=== PATIENT | male | born 1970 | race Caucasian/White ===

== ENCOUNTER 2020-07-26 21:21 | Inpatient (IN) | payer BC, OTHER ==
[~2020-07-26] VITALS: Ht 175 cm; Wt 90.6 kg
[2020-07-26] MEDS ORDERED: NS IV 1000 ML 1,000 ML ONE (21:43)
[2020-07-26] MEDS ORDERED: LACTATED RINGERS 1,000 ML IV ONE (21:43)
[2020-07-26] MEDS ORDERED: ACETAMINOPHEN 500 MG TAB (TYLENOL) PO PRN (21:45)
[2020-07-26 21:57] LABS: BASOPHILS # (AUTO) 0.2 10^3/uL (0.0-0.1); BASOPHILS % (AUTO) 1 % (0-10); EOSINOPHILS % (AUTO) 0 % (0-10); HEMATOCRIT 39 % (40-54); HEMOGLOBIN 11.6 g/dL (13.3-17.7); LYMPHOCYTES # (AUTO) 0.5 10^3/uL (1.0-4.0); LYMPHOCYTES % (AUTO) 2 % (12-44); MEAN CORPUSCULAR HEMOGLOBIN 28 pg (25-34); MEAN CORPUSCULAR HGB CONC 30 g/dL (32-36); MEAN CORPUSCULAR VOLUME 93 fL (80-99); MONOCYTES # (AUTO) 1.2 10^3/uL (0.0-1.0); MONOCYTES % (AUTO) 4 % (0-12); NEUTROPHILS # (AUTO) 26.2 10^3/uL (1.8-7.8); NEUTROPHILS % (AUTO) 90 % (42-75); PLATELET COUNT 551 10^3/uL (130-400); WHITE BLOOD COUNT 29.1 10^3/uL (4.3-11.0)
[2020-07-26 22:11] LABS: ALBUMIN 3.1 GM/DL (3.2-4.5); POTASSIUM 5.5 MMOL/L (3.6-5.0)
[2020-07-26 22:12] LABS: CALCIUM 9.3 MG/DL (8.5-10.1)
[2020-07-26] MEDS ORDERED: LORazepam INJ 2 MG/ML (ATIVAN) VIAL ONE (22:12)
[2020-07-26 22:14] LABS: TOTAL PROTEIN 7.3 GM/DL (6.4-8.2)
[2020-07-26 22:15] LABS: BILIRUBIN,TOTAL 0.5 MG/DL (0.1-1.0)
[2020-07-26 22:17] LABS: CREATININE SERUM 2.39 MG/DL (0.60-1.30)
[2020-07-26 22:19] LABS: FIBRIN DEGRADATION PRODUCTS 5.16 UG/ML (0.00-0.49); INR 1.3 (0.8-1.4); PROTHROMBIN TIME PATIENT 16.1 SEC (12.2-14.7)
[2020-07-26] MEDS ORDERED: NS IV 1000 ML 1,000 ML IV SCH (22:29)
[2020-07-26] MEDS ORDERED: ZIPRASIDONE 20 MG INJ (GEODON) VIAL IM ONE (22:29)
[2020-07-26] MEDS ORDERED: NS IV 500 ML 500 ML IV ONE (22:29)
[2020-07-26] MEDS ORDERED: LORazepam INJ 2 MG/ML (ATIVAN) VIAL IVP ONE (22:30)
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
[2020-07-26] MEDS ORDERED: WATER (STERILE) FOR INJECTION 10 ML ONE (22:38)
[2020-07-26 22:42] LABS: ABG BASE EXCESS -4.5 MMOL/L (-2.5-2.5); ABG OXYGEN SATURATION 92 % (94-100); ABG PCO2 36 MMHG (35-45); ABG PH 7.37 (7.37-7.43); ABG PO2 88 MMHG (79-93); ABG TCO2 20.5 MMOL/L (21.0-31.0)
[2020-07-26 22:43] LABS: ALLENS TEST YES-POS; INSPIRED O2 21%; PATIENT TEMP 39.1; VENTILATOR YES
[2020-07-26] MEDS ORDERED: inSUlin (REGULAR) HUMAN 1 UNIT/0.01 ML (CHARGE PER UNIT) IV ONE (22:45)
[2020-07-26] MEDS ORDERED: CEFEPIME INJECTION 1,000 MG in WATER (STERILE) FOR INJECTION 10 ML IV ONE (22:45)
[2020-07-26] MEDS ORDERED: VANCOMYCIN INJECTION 1,000 MG in NS (IVPB) 250 ML IV ONE (22:45)
[2020-07-26 22:53] LABS: BAND NEUTROPHILS 19 %; EOSINOPHILS % (MANUAL) 1 %; LYMPHOCYTES % (MANUAL) 2 %; METAMYELOCYTES % 1 %; MONOCYTES % (MANUAL) 3 %; NEUTROPHILS % (MANUAL) 74 %
[2020-07-26] MEDS: ZIPRASIDONE INJECTION 20 MG in WATER (STERILE) FOR INJECTION 1.2 ML IM PRN (22:53)
[2020-07-26 22:54] LABS: RBC MORPH NORMAL
[2020-07-26 23:29] VITALS: BP 151/67
[2020-07-26 23:30] LABS: BILIRUBIN,URINE NEGATIVE (NEGATIVE); CLARITY,URINE CLEAR; COLOR,URINE YELLOW; GLUCOSE, URINE (UA) 3+ (NEGATIVE); KETONES,URINE TRACE (NEGATIVE); LEUKOCYTE ESTERASE ,URINE NEGATIVE (NEGATIVE); NITRITE,URINE NEGATIVE (NEGATIVE); PROTEIN,URINE TRACE (NEGATIVE)
--- NOTE | 2020-07-26 23:33 | NUR ---
All fluids infused; both sets of blood cultures sent to lab prior to antibiotics; first antibiotic infused and second is infusing. Mane placed. Pt resting after Ativan given. Pt has 2 IV's placed.
[2020-07-26 23:38] LABS: BACTERIA,URINE TRACE /HPF; RBC,URINE 0-2 /HPF
[2020-07-26] MEDS ORDERED: VANCOMYCIN INJECTION 750 MG in NS (IVPB) 250 ML IV ONE (23:45)
[2020-07-26 23:46] LABS: AMPHETAMINE SCREEN, URINE POSITIVE (NEGATIVE); BARBITURATE SCREEN URINE NEGATIVE (NEGATIVE); BENZODIAZEPINES SCREEN URINE NEGATIVE (NEGATIVE); CANNABINOID SCREEN, URINE NEGATIVE (NEGATIVE); COCAINE SCREEN URINE NEGATIVE (NEGATIVE); METHADONE STAT NEGATIVE (NEGATIVE); METHAMPHETAMINE SCREEN URINE S POSITIVE (NEGATIVE); OPIATE SCREEN URINE NEGATIVE (NEGATIVE); OXYCODONE STAT NEGATIVE (NEGATIVE); PROPOXYPHENE STAT NEGATIVE (NEGATIVE); TRICYCLIC ANTIDEPRESSANTS SCRE NEGATIVE (NEGATIVE)
--- NOTE | 2020-07-26 23:48 | NUR ---
Repeat lactic acid drawn and sent.
--- NOTE | 2020-07-26 23:54 | NUR ---
Father of patient called and updated on status of patient; phone number is [phone].
[2020-07-26 23:56] VITALS: BP 145/77
[2020-07-27] VITALS (24 sets, daily range): BP systolic 125–148; BP diastolic 68–99
--- NOTE | 2020-07-27 01:30 | NUR ---
Report called to ICU; bed not ready yet but they will notify this nurse when it is available. Pt is resting; continues to be tachypneic but RR is down to the 40's. Will continue to monitor.
[2020-07-27 02:10] LABS: ALBUMIN 2.6 GM/DL (3.2-4.5)
[2020-07-27 02:11] LABS: POTASSIUM 5.3 MMOL/L (3.6-5.0)
[2020-07-27 02:12] LABS: CALCIUM 8.4 MG/DL (8.5-10.1)
[2020-07-27 02:13] LABS: TOTAL PROTEIN 6.4 GM/DL (6.4-8.2)
[2020-07-27 02:15] LABS: BILIRUBIN,TOTAL 0.3 MG/DL (0.1-1.0)
[2020-07-27 02:17] LABS: CREATININE SERUM 2.15 MG/DL (0.60-1.30)
--- NOTE | 2020-07-27 02:26 | NUR ---
Lab called with critical lab results: Ca=8.4 Sb=651 Lactic=3.12 Dr. Smith notified.
[2020-07-27] MEDS ORDERED: LORazepam INJ 2 MG/ML (ATIVAN) VIAL IVP PRN (04:30)
[2020-07-27] MEDS ORDERED: 1/2 NS IV SOLUTION 1,000 ML IV ONE (04:32)
[2020-07-27] MEDS ORDERED: POTASSIUM CL 10MEQ/50ML IVPB 50 ML IV ONE ×2 (04:32→04:37)
[2020-07-27] MEDS ORDERED: 1/2 NS IV SOLUTION 1,000 ML IV SCH (04:39)
[2020-07-27] MEDS ORDERED: NS IV 1000 ML 1,000 ML IV SCH (04:39)
[2020-07-27] MEDS ORDERED: POTASSIUM CL 10MEQ/50ML IVPB 50 ML IV SCH (04:45)
[2020-07-27] MEDS: 1/2 NS IV SOLUTION 1,000 ML IV SCH ×6 (05:08→23:10)
[2020-07-27] MEDS: POTASSIUM CL 10MEQ/50ML IVPB 50 ML IV SCH ×4 (05:08→21:58)
[2020-07-27 05:24] LABS: BASOPHILS % (AUTO) 0 % (0-10); EOSINOPHILS % (AUTO) 0 % (0-10); HEMATOCRIT 35 % (40-54); HEMOGLOBIN 11.4 g/dL (13.3-17.7); LYMPHOCYTES # (AUTO) 0.8 10^3/uL (1.0-4.0); LYMPHOCYTES % (AUTO) 4 % (12-44); MEAN CORPUSCULAR HEMOGLOBIN 27 pg (25-34); MEAN CORPUSCULAR HGB CONC 33 g/dL (32-36); MEAN CORPUSCULAR VOLUME 84 fL (80-99); MEAN PLATELET VOLUME 10.8 fL (9.0-12.2); MONOCYTES # (AUTO) 0.6 10^3/uL (0.0-1.0); MONOCYTES % (AUTO) 3 % (0-12); NEUTROPHILS # (AUTO) 18.7 10^3/uL (1.8-7.8); NEUTROPHILS % (AUTO) 92 % (42-75); PLATELET COUNT 413 10^3/uL (130-400); WHITE BLOOD COUNT 20.2 10^3/uL (4.3-11.0)
[2020-07-27 05:33] LABS: POTASSIUM 6.2 MMOL/L (3.6-5.0)
[2020-07-27 05:35] LABS: CALCIUM 8.9 MG/DL (8.5-10.1)
[2020-07-27 05:39] LABS: CREATININE SERUM 2.16 MG/DL (0.60-1.30); PHOSPHORUS 2.4 MG/DL (2.3-4.7)
[2020-07-27] MEDS ORDERED: SODIUM BICARB 8.4% 50 MEQ/50 ML VIAL IV ONE (06:00)
--- NOTE | 2020-07-27 06:00 | NUR ---
SPOKE TO [facility] ABOUT OUR DKA PROTOCOL. ORDERS RECEIVED TO CONTINUE DRIP AT 5UNITS/HR.
[2020-07-27 06:34] LABS: ABG BASE EXCESS 2.4 MMOL/L (-2.5-2.5); ABG OXYGEN SATURATION 96 % (94-100); ABG PCO2 41 MMHG (35-45); ABG PH 7.43 (7.37-7.43); ABG PO2 93 MMHG (79-93); ABG TCO2 27.5 MMOL/L (21.0-31.0)
[2020-07-27 06:35] LABS: ALLENS TEST ART LINE; INSPIRED O2 2L; PATIENT TEMP 37.8; VENTILATOR NO
--- NOTE | 2020-07-27 07:27 | Diagnostic Imaging Report ---
Indication: Altered mental status with dyspnea. Comparison: None. Discussion: Single portable upright view of the chest was obtained. Normal heart size. No focal consolidation, pleural fluid, or pneumothorax. No osseous abnormality. Impression: 1. No acute cardiopulmonary process. Dictated by: Dictated on workstation # [id number]
[2020-07-27 07:36] LABS: POTASSIUM 5.4 MMOL/L (3.6-5.0)
[2020-07-27 07:37] LABS: CALCIUM 8.8 MG/DL (8.5-10.1)
[2020-07-27 07:42] LABS: CREATININE SERUM 2.03 MG/DL (0.60-1.30)
[2020-07-27] MEDS: CEFEPIME 1,000 MG/SWFI 10 ML IV PUSH IV SCH ×6 (07:58→21:59)
--- NOTE | 2020-07-27 08:00 | NUR ---
Text Dr. Roman et notified him of pt status including HR 140s, RR40-60, only groans to painful stimuli, recent lactic acid et glucose level
[2020-07-27] MEDS: ACETAMINOPHEN 650 MG SUPP (TYLENOL) PR PRN ×3 (08:03→23:10)
--- NOTE | 2020-07-27 09:50 | NUR ---
Ice packs applied to groin et axilla bilat Dr. Roman at bedside with this RN, notified of continued status et temp of 102.8 despite tylenol
[2020-07-27 10:37] LABS: POTASSIUM 5.3 MMOL/L (3.6-5.0)
[2020-07-27 10:42] LABS: CREATININE SERUM 1.96 MG/DL (0.60-1.30)
[2020-07-27 12:37] LABS: POTASSIUM 5.7 MMOL/L (3.6-5.0)
[2020-07-27 12:38] LABS: CALCIUM 8.8 MG/DL (8.5-10.1)
[2020-07-27 12:43] LABS: CREATININE SERUM 1.9 MG/DL (0.60-1.30)
--- NOTE | 2020-07-27 13:07 | History & Physical-Hospitalist ---
History of Present Illness HPI/Chief Complaint Dino Moreau is a 50-year-old male with PMH insulin-dependent diabetes mellitus, methamphetamine abuse, who presented with altered mental status. He had reportedly been out of his insulin according to his parents. He had been too weak to walk and was incontinent of urine.in the emergency room, he was found to be in diabetic ketoacidosis. At the time of my exam, he is lethargic, uncooperative, and unable to provide any history. Source: RN/MD Exam Limitations: clinical condition Date Seen 07/27/20 Time Seen by a Provider: 09:40 Attending Physician Naya Khan MD PCP No,Local Physician Referring Physician Date of Admission Jul 27, 2020 at 00:10 Home Medications & Allergies Home Medications Reviewed patient Home Medication Reconciliation performed by pharmacy medication reconciliations tool maintenance technician and/or nursing. Patients Allergies have been reviewed. Allergies Allergies Coded Allergies No Known Drug Allergies (Caiimbrbow00/3/20) Past Nckgtxe-Dmojbt-Voitkb Hx Past Med/Social Hx: Reviewed Nursing Past Med/Soc Hx Patient Social History Alcohol Use: Denies Use Recreational Drug Use: Yes Drug of Choice: Meth Smoking Status: Never a Smoker Recent Foreign Travel: No Contact w/other who traveled: No Recent Hopitalizations: Yes Recent Infectious Disease Expo: No Seasonal Allergies Seasonal Allergies: No Past Medical History Endocrine: Diabetes, Insulin dep Review of Systems Constitutional: see HPI, fever, malaise, weakness Genitourinary: incontinence Musculoskeletal: muscle weakness Physical Exam Physical Exam Vital Signs Vital Signs - First Documented 07/26/20 07/27/20 21:55 00:12 Temp 39.1 Pulse 146 Resp 42 B/P (MAP) 113/86 (95) Pulse Ox 98 O2 Delivery Room Air O2 Flow Rate 3.00 Capillary Refill : Less Than 3 Seconds Height, Weight, BMI Height: '" Weight: lbs. oz. kg; 28.50 BMI Method: General Appearance: Moderate Distress (tachycardic and tachypneic), Other (diaphoretic) HEENT: Pharynx Normal, Other (pinpoint pupils bilaterally) Neck: Normal Inspection, Supple Respiratory: Lungs Clear, Respiratory Distress (tachypneic) Cardiovascular: Normal Peripheral Pulses, Tachycardia (regular rhythm) Gastrointestinal: Normal Bowel Sounds, Soft, Tenderness Extremity: Normal Inspection, No Pedal Edema Neurologic/Psychiatric: Other (lethargic, uncooperative,) Skin: Normal Color, Damp, Diaphoresis Results Results/Procedures Labs Laboratory Tests 07/26/20 21:41 07/27/20 01:45 07/27/20 05:10 07/27/20 06:20 07/27/20 07:20 07/27/20 08:10 07/27/20 10:00 07/27/20 11:30 Patient resulted labs reviewed. Imaging: Reviewed Imaging Report Assessment/Plan Admission Diagnosis Diabetic ketoacidosis and septic shock due to gram positive cocci bacteremia Admission Status: Inpatient Order (span 2 midnights) Reason for Inpatient Admission: DKA requiring IV insuliln Septic shock requiring IV fluids and antibiotics Assessment and Plan Diabetic ketoacidosis High anion gap metabolic acidosis Hyperkalemia Hyponatremia Blood sugar >1400 on arrival anion gap elevated Sodium 113, corrects to 134 Potassium mildly elevated Started on DKA protocol Insulin GTT IV fluids admitted to ICU Septic shock Gram positive cocci bacteremia Influenza B infection Acute kidney injury Febrile and tachycardic on arrival procalcitonin 72 creatinine 2.39 on arrival, improving this morning, unknown baseline Chest x-ray with no acute abnormalities UA not indicative of UTI Blood cultures positive for gram-positive cocci, likely staph aureus await final culture and sensitivity results Vancomycin and cefepime influenza B+ Tamiflu COVID RODRIGO negative, PCR pending Methamphetamine abuse Possible source of bacteremia recommend cessation Social work consult DVT Prophylaxis: Lovenox Diagnosis/Problems Diagnosis/Problems (1) Diabetic ketoacidosis Status: Acute Qualifiers: Diabetes mellitus type: other specified (including MARIO) Diabetes mellitus complication detail: without coma Qualified Codes: E13.10 - Other specified diabetes mellitus with ketoacidosis without coma (2) Septic shock Status: Acute (3) Gram-positive cocci bacteremia Status: Acute (4) Person under investigation for COVID-19 Status: Acute (5) Lactic acidosis Status: Acute (6) High anion gap metabolic acidosis Status: Acute (7) Hyperkalemia Status: Acute (8) Hyponatremia Status: Acute (9) Elevated procalcitonin Status: Acute (10) Influenza B Status: Acute (11) Acute kidney injury Status: Acute (12) Metabolic encephalopathy Status: Acute Clinical Quality Measures DVT/VTE Risk/Contraindication: Risk Factor Score Per Nursin RFS Level Per Nursing on Admit: 4+=Very High NAYA KHAN MD Jul 27, 2020 13:07
[2020-07-27] MEDS ORDERED: OSELTAMIVIR 75 MG (TAMIFLU) CAPSULE PO ONE (13:30)
[2020-07-27 13:46] LABS: ABG OXYGEN SATURATION 98 % (94-100); ABG PCO2 35 MMHG (35-45); ABG PH 7.49 (7.37-7.43); ABG PO2 93 MMHG (79-93); ABG TCO2 27.1 MMOL/L (21.0-31.0)
[2020-07-27 13:58] LABS: ALLENS TEST POS; INSPIRED O2 2; PATIENT TEMP 37.9; VENTILATOR NO
--- NOTE | 2020-07-27 14:45 | NUR ---
Dr. Roman back at bedside, no changes in assessment. HR remains in upper 140s, RR 40-60s, pt hot et diaphoretic. Pt does open eyes occasionally to painful stimul but doesnot follow any commands et makes moaning type noises sporadically
[2020-07-27] MEDS: VANCOMYCIN INJECTION 1,500 MG in NS IV 500 ML 500 ML IV SCH (15:41)
[2020-07-27 17:14] LABS: POTASSIUM 4.5 MMOL/L (3.6-5.0)
[2020-07-27 17:15] LABS: CALCIUM 8.4 MG/DL (8.5-10.1)
[2020-07-27 17:19] LABS: CREATININE SERUM 1.63 MG/DL (0.60-1.30)
[2020-07-27] MEDS: OSELTAMIVIR 30 MG (TAMIFLU) CAPSULE PO SCH (20:03)
[2020-07-27 20:46] LABS: CALCIUM 8.3 MG/DL (8.5-10.1); CREATININE SERUM 1.63 MG/DL (0.60-1.30); POTASSIUM 4.5 MMOL/L (3.6-5.0)
[2020-07-27] MEDS ORDERED: OSELTAMIVIR 75 MG (TAMIFLU) CAPSULE PO SCH (21:00)
--- NOTE | 2020-07-27 23:51 | NUR ---
Call placed to E ICU at this time. Spoke to the Dr. Reported patient appearance of increased pain and moaning. Discussed lab results, patient assessment and VS.
[2020-07-27] MEDS: D5 1/2 NS 1000 ML IV SOLUTION 1,000 ML IV SCH (23:56)
[2020-07-27] MEDS ORDERED: morphine INJ 4 MG/ML 1 ML (VIAL/SYRINGE) ONE (23:58)
[2020-07-28] VITALS (23 sets, daily range): BP systolic 97–149; BP diastolic 43–88
[2020-07-28] MEDS: POTASSIUM CL 10MEQ/50ML IVPB 50 ML IV SCH ×6 (00:02→14:40)
[2020-07-28] MEDS: morphine INJ 4 MG/ML 1 ML (VIAL/SYRINGE) IVP PRN ×4 (00:04→22:36)
[2020-07-28 00:50] LABS: POTASSIUM 4.1 MMOL/L (3.6-5.0)
[2020-07-28 00:52] LABS: CALCIUM 8.1 MG/DL (8.5-10.1)
[2020-07-28 00:56] LABS: CREATININE SERUM 1.44 MG/DL (0.60-1.30)
[2020-07-28 04:13] LABS: BASOPHILS % (AUTO) 0 % (0-10); EOSINOPHILS # (AUTO) 0.1 10^3/uL (0.0-0.3); EOSINOPHILS % (AUTO) 0 % (0-10); HEMATOCRIT 29 % (40-54); HEMOGLOBIN 9.8 g/dL (13.3-17.7); LYMPHOCYTES # (AUTO) 1.4 10^3/uL (1.0-4.0); LYMPHOCYTES % (AUTO) 7 % (12-44); MEAN CORPUSCULAR HEMOGLOBIN 28 pg (25-34); MEAN CORPUSCULAR HGB CONC 34 g/dL (32-36); MEAN CORPUSCULAR VOLUME 82 fL (80-99); MONOCYTES # (AUTO) 0.5 10^3/uL (0.0-1.0); MONOCYTES % (AUTO) 3 % (0-12); NEUTROPHILS # (AUTO) 16.9 10^3/uL (1.8-7.8); NEUTROPHILS % (AUTO) 87 % (42-75); PLATELET COUNT 312 10^3/uL (130-400); WHITE BLOOD COUNT 19.5 10^3/uL (4.3-11.0)
[2020-07-28 04:22] LABS: POTASSIUM 4.3 MMOL/L (3.6-5.0)
[2020-07-28 04:28] LABS: CREATININE SERUM 1.45 MG/DL (0.60-1.30); PHOSPHORUS 1.4 MG/DL (2.3-4.7)
[2020-07-28 04:31] LABS: MAGNESIUM 1.6 MG/DL (1.6-2.4)
[2020-07-28] MEDS: 1/2 NS IV SOLUTION 1,000 ML IV SCH ×2 (05:12→09:34)
--- NOTE | 2020-07-28 05:46 | Pulmonary Consultation ---
History of Present Illness History of Present Illness Date Seen by Provider: Jul 28, 2020 Time Seen by Provider: 05:59 Date of Admission Allergies and Home Medications Allergies Coded Allergies: No Known Drug Allergies (Unverified , 07/26/20) Past Ajjawcl-Kcefme-Cubhdv Hx Past Med/Social Hx: Reviewed Nursing Past Med/Soc Hx Patient Social History Alcohol Use: Denies Use Recreational Drug Use: Yes Drug of Choice: Meth Smoking Status: Never a Smoker Recent Foreign Travel: No Contact w/Someone Who Travel: No Recent Infectious Disease Expo: No Recent Hopitalizations: Yes Seasonal Allergies Seasonal Allergies: No Past Medical History Endocrine: Yes Diabetes, Insulin dep Sepsis Event Evaluation Height, Weight, BMI Height: '" Weight: lbs. oz. kg; 28.50 BMI Method: Exam Exam Vital Signs Date Time Temp Pulse Resp B/P (MAP) Pulse Ox O2 Delivery O2 Flow Rate FiO2 07/28/20 04:00 37.2 Nasal Cannula 2.00 07/28/20 04:00 134 32 135/72 (93) 98 Nasal Cannula 2.00 07/28/20 03:05 Nasal Cannula 2.00 07/28/20 03:00 137 27 120/58 (78) 94 Nasal Cannula 2.00 07/28/20 02:00 135 129/55 (79) 97 Nasal Cannula 2.00 07/28/20 01:47 37.1 Nasal Cannula 2.00 07/28/20 01:00 138 119/70 (86) 98 Nasal Cannula 2.00 07/28/20 01:00 138 07/28/20 00:00 141 19 133/68 (89) 98 Nasal Cannula 2.00 07/27/20 23:10 38.0 07/27/20 23:10 Nasal Cannula 2.00 07/27/20 23:05 38.0 07/27/20 23:00 142 131/75 (93) 100 Nasal Cannula 2.00 07/27/20 22:04 37.6 Nasal Cannula 2.00 07/27/20 22:00 135 129/71 (90) 99 Nasal Cannula 2.00 07/27/20 21:00 142 125/77 (93) 99 Nasal Cannula 2.00 07/27/20 20:00 144 136/79 (98) 99 Nasal Cannula 2.00 07/27/20 19:50 Nasal Cannula 2.00 07/27/20 19:40 38.0 144 42 99 Nasal Cannula 2.00 07/27/20 19:00 140 148/92 (110) 100 Nasal Cannula 2.00 07/27/20 19:00 140 07/27/20 19:00 38.8 07/27/20 18:00 141 147/87 (107) 98 Nasal Cannula 2.00 07/27/20 17:00 142 146/86 (106) 98 Nasal Cannula 2.00 07/27/20 16:00 142 132/82 (99) 98 Nasal Cannula 2.00 07/27/20 16:00 Nasal Cannula 2.00 07/27/20 15:09 38.3 07/27/20 15:00 140 26 133/94 (107) 99 Nasal Cannula 2.00 07/27/20 14:00 142 127/87 (100) 98 Nasal Cannula 2.00 07/27/20 13:36 37.9 07/27/20 13:00 147 07/27/20 13:00 144 28 129/84 (99) 98 Nasal Cannula 2.00 07/27/20 12:00 Nasal Cannula 2.00 07/27/20 12:00 147 136/83 (100) 98 Nasal Cannula 2.00 07/27/20 11:00 147 40 135/90 (105) 98 Nasal Cannula 2.00 07/27/20 10:00 149 38 139/83 (101) 98 Nasal Cannula 2.00 07/27/20 09:51 39.3 07/27/20 09:00 149 35 135/86 (102) 97 Nasal Cannula 2.00 07/27/20 08:01 38.9 07/27/20 08:00 Nasal Cannula 2.00 07/27/20 08:00 149 35 136/92 (107) 98 Nasal Cannula 2.00 07/27/20 07:00 149 38 139/85 (103) 98 Nasal Cannula 2.00 07/27/20 07:00 148 07/27/20 06:00 144 38 146/88 (107) 98 Nasal Cannula 2.00 I & O 07/28/20 07:00 Intake Total 5865 ml Output Total 2550 ml Balance 3315 ml Height & Weight Height: '" Weight: lbs. oz. kg; 28.50 BMI Method: General Appearance: Moderate Distress (tachycardic and tachypneic), Other (diaphoretic) HEENT: Pharynx Normal, Other (pinpoint pupils bilaterally) Neck: Normal Inspection, Supple Respiratory: Lungs Clear, Respiratory Distress (tachypneic) Cardiovascular: Normal Peripheral Pulses, Tachycardia (regular rhythm) Capillary Refill: Less Than 3 Seconds Peripheral Pulses: 2+ Radial Pulses (R), 2+ Radial Pulses (L) Gastrointestinal: No distended; tenderness (RLQ ) Extremity: Normal Inspection, No Pedal Edema Neurologic/Psychiatric: Other (lethargic, uncooperative,) Skin: Normal Color, Damp, Diaphoresis Results Lab Laboratory Tests 07/26/20 21:41 07/27/20 01:45 07/27/20 05:10 07/27/20 06:20 07/27/20 07:20 07/27/20 08:10 07/27/20 10:00 07/27/20 11:30 07/27/20 16:34 07/27/20 20:17 07/28/20 00:28 07/28/20 03:47 Assessment/Plan Assessment/Plan DKA -DKA protocol -Continue to monitor Methamphetamine use -education Lethargy -Check CT of head -Hold Ativan -Continue PRN morphine and Geodon for now -Precedex PRN -Check ABG Bacteremia -May need REX -Will check echo Abdominal pain - -Check amylase lipase -Check CT of Abd without contrast Influenza B + -COVID is negative -Tamiflu Anemia -Monitor MELISA VERA DO Jul 28, 2020 05:46
[2020-07-28] MEDS ORDERED: ENOXAPARIN 40 MG/0.4 ML (LOVENOX) SYR ONE (06:13)
[2020-07-28] MEDS ORDERED: ENOXAPARIN 40 MG/0.4 ML (LOVENOX) SYR SC SCH (06:15)
[2020-07-28] MEDS: CEFEPIME 1,000 MG/SWFI 10 ML IV PUSH IV SCH ×2 (06:19)
[2020-07-28 06:48] LABS: AMYLASE 66 U/L (25-125)
[2020-07-28 06:57] LABS: LIPASE < 4 U/L (8-78)
[2020-07-28 07:07] LABS: ABG BASE EXCESS 0.1 MMOL/L (-2.5-2.5); ABG OXYGEN SATURATION 95 % (94-100); ABG PCO2 38 MMHG (35-45); ABG PH 7.42 (7.37-7.43); ABG PO2 75 MMHG (79-93); ABG TCO2 25.2 MMOL/L (21.0-31.0)
[2020-07-28 07:13] LABS: ALLENS TEST YES-POS; INSPIRED O2 2 L; VENTILATOR NO
[2020-07-28 07:14] LABS: PATIENT TEMP 37.2
--- NOTE | 2020-07-28 07:39 | Diagnostic Imaging Report ---
INDICATION: Abdominal pain COMPARISON: None available TECHNIQUE: 3 radiographs of abdomen dated 07/28/2020. FINDINGS: The minimally visualized lung bases are clear. Gas and stool is noted throughout the colon, including extending into the pelvis. No dilated loops of small bowel. No differential air-fluid levels. No free air. No suspicious calcifications overlying the renal shadows. Scattered osseous degenerative changes. 9 mm calcifications noted overlying the right aspect of the sacrum. IMPRESSION: No evidence of bowel obstruction or free air. 9 mm calcification overlying the right aspect of the sacrum. This is nonspecific. This could relate to a bone island or other sclerotic osseous lesion. Enteric contents or vascular calcifications additional consideration. Dictated by: Dictated on workstation # [id number]
[2020-07-28] MEDS: MIDAZOLAM 2 MG/2 ML (VERSED) VIAL IVP PRN (07:53)
--- NOTE | 2020-07-28 08:26 | Diagnostic Imaging Report ---
PROCEDURE: CT head without contrast. TECHNIQUE: Multiple contiguous axial images were obtained through the brain without the use of intravenous contrast. Auto Exposure Controls were utilized during the CT exam to meet ALARA standards for radiation dose reduction. INDICATION: Lethargy. No prior studies are available for comparison. The ventricles and sulci are within normal limits. No sulcal effacement or midline shift is identified. No acute intra-axial or extra-axial hemorrhage is detected. Small low-density left thalamus consistent with lacunar infarct, however, age is indeterminate. IMPRESSION: 1. No acute intracranial hemorrhage is identified. 2. Small low-density left thalamus consistent with age-indeterminate lacunar infarct. If there is concern for acuity, MRI could be performed. Dictated by: Dictated on workstation # [id number]
--- NOTE | 2020-07-28 08:35 | Diagnostic Imaging Report ---
PROCEDURE: CT chest, abdomen, and pelvis without contrast. TECHNIQUE: Multiple contiguous axial images were obtained through the chest, abdomen, and pelvis without the use of intravenous contrast. Auto Exposure Controls were utilized during the CT exam to meet ALARA standards for radiation dose reduction. INDICATION: Severe sepsis and abdominal pain. No prior studies are available for comparison. CT CHEST: No axillary lymphadenopathy is detected. Mediastinal and hilar evaluation is limited without intravenous contrast. No pericardial fluid is identified. There appears to be trace bilateral pleural fluid. There are several areas of patchy airspace infiltrate within both lungs, greatest in bilateral lower lobes. In addition, there are several tiny nodular densities, only a few millimeters in size in bilateral upper lobes, indeterminate. CT ABDOMEN AND PELVIS: Liver is unremarkable. There is some mild gallbladder distention but no definite gallstones are seen. No bile duct dilatation. The pancreas and spleen are unremarkable. No adrenal mass is detected. Left kidney is atrophic. The right kidney is unremarkable. Aorta is nonaneurysmal. Bowel loops are normal in caliber. No bowel obstruction is seen. There is moderate stool in the colon suggestive of constipation. There is diverticulosis of the sigmoid but no evidence of acute diverticulitis. The bladder is markedly thick walled and contains a Mane catheter and there is also small amount of gas. Prostate is enlarged. There are fat-containing inguinal hernias bilaterally. The bony structures are nonacute. IMPRESSION: 1. Trace bilateral pleural effusions with patchy bilateral airspace pulmonary infiltrates. In addition, there are several subcentimeter pulmonary nodules in the upper lobes bilaterally, indeterminate. While this could be infectious/inflammatory, metastatic disease cannot be entirely excluded and continued close followup to confirm clearing would be recommended. 2. Moderate gallbladder distention. Gallbladder ultrasound may be useful for further evaluation. 3. Significant bladder wall thickening, perhaps on the basis of cystitis. 4. Uncomplicated diverticulosis. 5. Prostatomegaly. Dictated by: Dictated on workstation # [id number]
[2020-07-28 08:50] LABS: CALCIUM 7.9 MG/DL (8.5-10.1); CREATININE SERUM 1.46 MG/DL (0.60-1.30); POTASSIUM 4.3 MMOL/L (3.6-5.0)
--- NOTE | 2020-07-28 09:05 | Progress Note - Hospitalist ---
Subjective HPI/CC On Admission Date Seen by Provider: Jul 28, 2020 Time Seen by Provider: 09:00 Dino Moreau is a 50-year-old male with H insulin-dependent diabetes mellitus, methamphetamine abuse, who presented with altered mental status. He had reportedly been out of his insulin according to his parents. He had been too weak to walk and was incontinent of urine.in the emergency room, he was found to be in diabetic ketoacidosis. At the time of my exam, he is lethargic, uncooperative, and unable to provide any history. Subjective/Events-last exam Pt is laying in bed, awake and grimacing when I walked in the room. Does not speak to me. Did calm down when I held his hand. Focused Exam Lactate Level 07/27/20 12:52: Lactic Acid Level 2.68*H 07/28/20 00:28: Lactic Acid Level 2.17*H 07/28/20 03:47: Lactic Acid Level 1.65 Time of Focused Exam: 00:14 Objective Exam Vital Signs Vital Signs Date Time Temp Pulse Resp B/P (MAP) Pulse Ox O2 Delivery O2 Flow Rate FiO2 07/28/20 14:47 38.3 07/28/20 12:44 133 07/28/20 10:00 119/55 (76) 98 Nasal Cannula 2.00 07/28/20 09:00 32 Capillary Refill : Less Than 3 Seconds General Appearance: Mild Distress Respiratory: Lungs Clear, No Respiratory Distress Cardiovascular: No Murmur, Tachycardia Gastrointestinal: Normal Bowel Sounds, Soft Extremity: No Calf Tenderness, No Pedal Edema Neurologic/Psychiatric: Alert Results/Procedures Lab Laboratory Tests 07/27/20 16:34 07/27/20 20:17 07/28/20 00:28 07/28/20 03:47 07/28/20 08:30 07/28/20 13:00 Patient resulted labs reviewed. Imaging: Reviewed Imaging Report Assessment/Plan Assessment and Plan Assess & Plan/Chief Complaint Diabetic ketoacidosis- resolved High anion gap metabolic acidosis Hyperkalemia Hyponatremia - BS improving Na 134 today Potassium mildly elevated Insulin GTT IV fluids per protocol Septic shock MRSA bacteremia Influenza B infection Acute kidney injury Encephalopathy procalcitonin 72 creatinine now 1.33 Chest x-ray with no acute abnormalities UA not indicative of UTI await final culture and sensitivity results Vancomycin and cefepime influenza B+ Tamiflu COVID RODRIGO negative, PCR negative - Cardiology consulted for possible REX Methamphetamine abuse Possible source of bacteremia, no obvious track baeza noted recommend cessation Social work consult DVT Prophylaxis: Lovenox Diagnosis/Problems Diagnosis/Problems (1) Encephalopathy (2) Elevated procalcitonin Status: Acute (3) Gram-positive cocci bacteremia Status: Acute (4) High anion gap metabolic acidosis Status: Acute (5) Acute kidney injury Status: Acute (6) Metabolic encephalopathy Status: Acute (7) Influenza B Status: Acute (8) Hyponatremia Status: Acute (9) Lactic acidosis Status: Acute (10) Hyperkalemia Status: Acute (11) Septic shock Status: Acute Clinical Quality Measures DVT/VTE Risk/Contraindication: Risk Factor Score Per Nursin RFS Level Per Nursing on Admit: 4+=Very High CHAD ESPINO MD Jul 28, 2020 09:05
--- NOTE | 2020-07-28 09:05 | Consultation-Cardiology ---
HPI-Cardiology Cardiology Consultation: Date of Consultation 07/28/20 Time Seen by a Provider: 08:50 Date of Admission 07-26-2020 Attending Physician Ginette Roman MD Admitting Physician No,Local Physician Consulting Physician Caitie More MD HPI: Chief Complaint: Tachycardia Mr. Calixto is a 50 year old male admitted to ICU 8 from the ED. He is currently confused and moving around in the bed. Information has been obtained by review of chart and discussion with nursing. He has a h/o methamphetamine abuse and suspected ETOH abuse. He has been staying with his parents. His parents were out of town for the weekend. He called his family was confused. They came home and summoned EMS. He has a h/o DM and was found to be in DKA. He tested positive for methamphetamines and influenza B. He has had a fever. He tested negative for COVID. Review of Systems-Cardiology Review of Systems Other comments Unable to obtain d/t pt confusion ULU-Wrbage-Eeyqfb Hx Patient Social History Alcohol Use: Denies Use Recreational Drug Use: Yes Drug of Choice: Meth Smoking Status: Never a Smoker Recent Foreign Travel: No Recent Infectious Disease Expo: No Hospitalization with Isolation: Denies Past Medical History PMH As described under Assessment. Family Medical History Family Medical History: Unable to obtain Allergies and Home Medications Allergies Coded Allergies: No Known Drug Allergies (Unverified , 07/26/20) Physical Exam-Cardiology Physical Exam Vital Signs/I&O 07/28/20 07/28/20 07/28/20 07/28/20 20:00 20:00 20:22 21:00 Pulse 101 97 103 Resp 25 18 22 B/P (MAP) 110/63 (79) 110/63 100/88 (92) Pulse Ox 94 100 100 100 O2 Delivery Room Air Room Air Room Air Room Air 07/28/20 07/28/20 07/28/20 07/28/20 22:00 23:00 23:00 23:00 Temp 36.8 Pulse 105 109 Resp 21 B/P (MAP) 99/71 (80) Pulse Ox 95 100 100 O2 Delivery Room Air Room Air Room Air Room Air 07/29/20 07/29/20 07/29/20 07/29/20 00:14 00:53 01:00 01:08 Pulse 98 93 100 Resp 30 26 B/P (MAP) 98/69 (79) 94/75 (81) Pulse Ox 96 94 O2 Delivery Room Air Nasal Cannula Nasal Cannula O2 Flow Rate 2.00 2.00 07/29/20 07/29/20 07/29/20 07/29/20 01:11 02:00 03:00 04:00 Pulse 95 96 90 Resp 39 12 24 B/P (MAP) 94/75 111/74 (86) 94/52 (66) Pulse Ox 99 97 99 96 O2 Delivery Nasal Cannula Nasal Cannula Nasal Cannula Nasal Cannula O2 Flow Rate 2.00 2.00 2.00 2.00 07/29/20 07/29/20 07/29/20 07/29/20 04:18 04:18 05:00 06:05 Pulse 87 85 87 Resp 12 24 8 B/P (MAP) 88/49 (62) 88/47 (61) 88/48 (61) 91/57 (68) Pulse Ox 100 100 96 O2 Delivery Nasal Cannula Nasal Cannula Nasal Cannula O2 Flow Rate 2.00 2.00 2.00 07/29/20 07/29/20 07/29/20 06:27 07:00 07:38 Temp 37.8 Pulse 92 94 Resp 27 11 B/P (MAP) 91/57 99/58 (72) Pulse Ox 100 95 O2 Delivery Nasal Cannula Nasal Cannula O2 Flow Rate 2.00 2.00 07/28/20 23:59 Intake Total 665 ml Output Total 1400 ml Balance -735 ml Capillary Refill : Less Than 3 Seconds Constitutional: well-developed, well-nourished, other (confused, uncooperative ) HEENT: No oral hygience is good (multiple dental caries) Neck: No carotid bruit; carotid pulses are 2 + bilaterally Respiratory: chest expansion is symmetric, chest is bilaterally symmetric, other (tachypnea) Cardiovascular: No JVD; tachycardia Gastrointestinal: soft, round, audible bowel sounds Extremities: no lower extremity edema bilateral Neurologic/Psychiatric: other (moving all etremities) Skin: No rash on exposed areas, No ulcerations on exposed areas Data Review Labs Laboratory Tests 07/28/20 08:30: Sodium Level 135, Potassium Level 4.3, Chloride Level 104, Carbon Dioxide Level 19L, Anion Gap 12, Blood Urea Nitrogen 40H, Creatinine 1.46H, Estimat Glomerular Filtration Rate 51, BUN/Creatinine Ratio 27, Glucose Level 252H, Calcium Level 7.9L 07/28/20 09:01: Glucometer 257H 07/28/20 10:10: Glucometer 223H 07/28/20 11:07: Glucometer 216H 07/28/20 12:49: Glucometer 223H 07/28/20 13:00: Sodium Level 134L, Potassium Level 4.1, Chloride Level 105, Carbon Dioxide Level 21, Anion Gap 8, Blood Urea Nitrogen 37H, Creatinine 1.33H, Estimat Glomerular Filtration Rate 57, BUN/Creatinine Ratio 28, Glucose Level 148H, Calcium Level 7.9L 07/28/20 14:02: Glucometer 140H 07/28/20 15:34: Glucometer 143H 07/28/20 15:40: Sodium Level 134L, Potassium Level 4.0, Chloride Level 105, Carbon Dioxide Level 20L, Anion Gap 9, Blood Urea Nitrogen 35H, Creatinine 1.29, Estimat Glomerular Filtration Rate 59, BUN/Creatinine Ratio 27, Glucose Level 135H, Calcium Level 8.0L, Vancomycin Level Trough 11.4 07/28/20 17:27: Glucometer 101 07/28/20 18:26: Glucometer 132H 07/28/20 19:26: Glucometer 208H 07/28/20 23:01: Glucometer 206H 07/29/20 04:25: Glucometer 256H, White Blood Count 11.4H, Red Blood Count 2.90L, Hemoglobin 8.0L , Hematocrit 24L, Mean Corpuscular Volume 83, Mean Corpuscular Hemoglobin 28, Mean Corpuscular Hemoglobin Concent 33, Red Cell Distribution Width 13.6, Platelet Count 275, Mean Platelet Volume 11.3, Immature Granulocyte % (Auto) 5, Neutrophils (%) (Auto) 82H, Lymphocytes (%) (Auto) 7L, Monocytes (%) (Auto) 5, Eosinophils (%) (Auto) 1, Basophils (%) (Auto) 0, Neutrophils # (Auto) 9.3H, Lymphocytes # (Auto) 0.8L, Monocytes # (Auto) 0.5, Eosinophils # (Auto) 0.1, Basophils # (Auto) 0.0, Immature Granulocyte # (Auto) 0.6H, Sodium Level 133L, Potassium Level 4.9, Chloride Level 104, Carbon Dioxide Level 19L, Anion Gap 10, Blood Urea Nitrogen 38H, Creatinine 1.48H, Estimat Glomerular Filtration Rate 50, BUN/Creatinine Ratio 26, Glucose Level 239H, Calcium Level 7.5L, Phosphorus Level 1.9L, Magnesium Level 1.7, Ammonia 33H, Beta-Hydroxybutyrate (Chem panel) 0.09, Thyroid Stimulating Hormone (TSH) 1.04, Free Thyroxine 0.79 07/29/20 05:16: Glucometer 299H Microbiology 07/28/20 Blood Culture - Preliminary, Resulted No growth 07/27/20 MRSA Screen - Final, Complete MRSA not isolated 07/26/20 Urine Culture - Final, Complete NO GROWTH Radiology NAME: MARY CALIXTO MED REC#: [id number] PT STATUS: ADM IN : 1970 PHYSICIAN: MELISA VERA DO ADMIT DATE: 07/27/20/ICU Draft Date of Exam:07/28/20 CT HEAD WO PROCEDURE: CT head without contrast. TECHNIQUE: Multiple contiguous axial images were obtained through the brain without the use of intravenous contrast. Auto Exposure Controls were utilized during the CT exam to meet ALARA standards for radiation dose reduction. INDICATION: Lethargy. No prior studies are available for comparison. The ventricles and sulci are within normal limits. No sulcal effacement or midline shift is identified. No acute intra-axial or extra-axial hemorrhage is detected. Small low-density left thalamus consistent with lacunar infarct, however, age is indeterminate. IMPRESSION: 1. No acute intracranial hemorrhage is identified. 2. Small low-density left thalamus consistent with age-indeterminate lacunar infarct. If there is concern for acuity, MRI could be performed. Dictated on workstation # [id number] Dict: 07/28/20822 Trans: 07/28/20825 [facility] [id number] Interpreted by: ERIC POLANCO MD Electronically signed by: NAME: MARY CALIXTO MED REC#: [id number] PT STATUS: ADM IN : 1970 PHYSICIAN: MELISA VERA DO ADMIT DATE: 07/27/20/ICU Draft Date of Exam:07/28/20 CT CHEST/ABDOMEN/PELVIS WO PROCEDURE: CT chest, abdomen, and pelvis without contrast. TECHNIQUE: Multiple contiguous axial images were obtained through the chest, abdomen, and pelvis without the use of intravenous contrast. Auto Exposure Controls were utilized during the CT exam to meet ALARA standards for radiation dose reduction. INDICATION: Severe sepsis and abdominal pain. No prior studies are available for comparison. CT CHEST: No axillary lymphadenopathy is detected. Mediastinal and hilar evaluation is limited without intravenous contrast. No pericardial fluid is identified. There appears to be trace bilateral pleural fluid. There are several areas of patchy airspace infiltrate within both lungs, greatest in bilateral lower lobes. In addition, there are several tiny nodular densities, only a few millimeters in size in bilateral upper lobes, indeterminate. CT ABDOMEN AND PELVIS: Liver is unremarkable. There is some mild gallbladder distention but no definite gallstones are seen. No bile duct dilatation. The pancreas and spleen are unremarkable. No adrenal mass is detected. Left kidney is atrophic. The right kidney is unremarkable. Aorta is nonaneurysmal. Bowel loops are normal in caliber. No bowel obstruction is seen. There is moderate stool in the colon suggestive of constipation. There is diverticulosis of the sigmoid but no evidence of acute diverticulitis. The bladder is markedly thick walled and contains a Mane catheter and there is also small amount of gas. Prostate is enlarged. There are fat-containing inguinal hernias bilaterally. The bony structures are nonacute. IMPRESSION: 1. Trace bilateral pleural effusions with patchy bilateral airspace pulmonary infiltrates. In addition, there are several subcentimeter pulmonary nodules in the upper lobes bilaterally, indeterminate. While this could be infectious/inflammatory, metastatic disease cannot be entirely excluded and continued close followup to confirm clearing would be recommended. 2. Moderate gallbladder distention. Gallbladder ultrasound may be useful for further evaluation. 3. Significant bladder wall thickening, perhaps on the basis of cystitis. 4. Uncomplicated diverticulosis. 5. Prostatomegaly. Dictated on workstation # [id number] Dict: 07/28/2024 Trans: 07/28/20 0834 CV [id number] ECG Impression ECG Initial ECG Rhythm: S.Tach A/P-Cardiology Assessment/Admission Diagnosis Sepsis of undetermined etiology AMS H/O Methamphetamine abuse Sinus tachycardia likely secondary to sepsis and/or withdrawal DM - DKA Influenza B (+)\ Acute renal insufficiency Discussion and Recomendations Sepsis - management per medical services Sinus tachycardia likely secondary to sepsis and/or withdrawal Echocardiogram to eval structure and function IV BB to treat HR and BP Monitor lab Replace electrolytes as indicated Further recs will be based on his hospital course Clinical Quality Measures DVT/VTE Risk/Contraindication: Risk Factor Score Per Nursin RFS Level Per Nursing on Admit: 4+=Very High DIVINA LYLES Jul 28, 2020 09:05
[2020-07-28] MEDS: OSELTAMIVIR 30 MG (TAMIFLU) CAPSULE PO SCH (09:11)
[2020-07-28] MEDS ORDERED: meTOprolol 5 MG/5 ML (LOPRESSOR) VIAL IV ONE (09:15)
[2020-07-28] MEDS: PANTOPRAZOLE 40 MG (PROTONIX) VIAL IV SCH (09:34)
[2020-07-28] MEDS ORDERED: meTOprolol 5 MG/5 ML (LOPRESSOR) VIAL IV SCH (12:00)
[2020-07-28 13:27] LABS: CALCIUM 7.9 MG/DL (8.5-10.1); CREATININE SERUM 1.33 MG/DL (0.60-1.30); POTASSIUM 4.1 MMOL/L (3.6-5.0)
--- NOTE | 2020-07-28 14:46 | Diagnostic Imaging Report ---
PROCEDURE: Ultrasound abdomen complete. TECHNIQUE: Multiple real-time grayscale images were obtained of the abdomen in various projections. INDICATION: Sepsis. FINDINGS: Liver is mildly enlarged 18.9 cm. No discrete liver mass is detected. The portal vein is patent and shows normal direction of flow. Gallbladder does show some dilatation measuring 11.2 x 5.4 x 5.6 cm. However, gallbladder wall is not thickened. No stones are identified. No pericholecystic fluid or definite biliary ductal dilatation is seen. The pancreas, spleen and aorta are obscured by bowel gas. IVC is patent. Left kidney is obscured. Right kidney is without calculi or hydronephrosis. There is no ascites. IMPRESSION: 1. Mild hepatomegaly. 2. Gallbladder hydrops but gallbladder wall is normal in thickness and no definite cholelithiasis is seen. If there is concern for cholecystitis, nuclear medicine HIDA scan may be useful for further evaluation. Dictated by: Dictated on workstation # [id number]
[2020-07-28] MEDS: ACETAMINOPHEN 650 MG SUPP (TYLENOL) PR PRN (14:47)
--- NOTE | 2020-07-28 14:55 | NUR ---
"RD ASSESSMENT PMHx: DM; methamphetamine use/abuse PT INTERACTION: Note pt is a poor historian with AMS, per chart review. Note all information gathered for nutrition assessment is per chart review. Note pt has been refusing meals since admit. Note no BM has been recorded, and pt not currently on bowel regimen. Note unable to determine recent wt hx. Note unable to determine current level of DM management. Note pt has hx of DKA, and note unable to determine recent HbA1c. ABNORMAL NUTRITION-RELATED LAB VALUES LOW: Ca 7.9 HIGH: BUN 40; cr 1.46; glu 252 Est. kcal needs: 1700 kcal | 20 kcal/kg Est. Pro needs: 68 g Pro | 0.8 g Pro/kg PES STATEMENT: Inadequate oral intake (NI-2.1) related to loss of appetite as evidenced by chart review | Pt refusing meals INTERVENTION: Note pt currently NPO. Would recommend diet advancement as medically able and as tolerated. Did not offer diet education at this time, d/t pt's AMS. May attempt to offer prior to discharge. Will continue to follow and reassess as pt needs, intake, and status change. Rajat Saeed, MS RD LD"
[2020-07-28] MEDS ORDERED: TROUGH ORDER-PHARMACY XX ONE (15:00)
--- NOTE | 2020-07-28 16:08 | NUR ---
CM/SS following with patient for discharge planning. CM/SS walked by the glass door and the patient was sprawled out on the bed with gown open resting. The physician reported that he was confused and unable to converse at time of her visit; therefore, CM/SS did not attempt to speak with patient. However, this sw will discuss discharge with patient when able or with family.
[2020-07-28] MEDS: DexMEDEtomidine PRE MIX 100 ML IV PRN ×2 (16:09→20:22)
[2020-07-28 16:10] LABS: CREATININE SERUM 1.29 MG/DL (0.60-1.30)
--- NOTE | 2020-07-28 17:20 | Consultation-Cardiology ---
HPI-Cardiology Cardiology Consultation: Date of Consultation 07/28/20 Time Seen by a Provider: 16:50 Date of Admission Attending Physician Ginette Roman MD Admitting Physician No,Local Physician Consulting Physician MUNIR CASTANEDA MD, MA, FACP, FACC, FSCAI, CCDS HPI: Chief Complaint: Reason for consulatation: Tachycardia HPI Mr. Moreau is a 50 year old male admitted to ICU 8 from the ED. He is currently confused and moving around in the bed. Information has been obtained by review of chart and discussion with nursing. He has a h/o methamphetamine abuse and suspected ETOH abuse. He has been staying with his parents. His parents were out of town for the weekend. He called his family was confused. They came home and summoned EMS. He has a h/o DM and was found to be in DKA. He tested positive for methamphetamines and influenza B. He has had a fever. He tested negative for COVID. Review of Systems-Cardiology Review of Systems Constitutional: other (currently not verbally responsive and unable to provide a review of systems) ENS-Cxgdhg-Eaejev Hx Patient Social History Alcohol Use: Denies Use Recreational Drug Use: Yes Drug of Choice: Meth Smoking Status: Never a Smoker Recent Foreign Travel: No Recent Infectious Disease Expo: No Hospitalization with Isolation: Denies Past Medical History PMH As described under Assessment. Family Medical History Family Medical History: Unable to obtain Allergies and Home Medications Allergies Coded Allergies: No Known Drug Allergies (Unverified , 07/26/20) Patient Home Medication List Home Medication List Reviewed: Yes Physical Exam-Cardiology Physical Exam Vital Signs/I&O 07/28/20 07/28/20 07/28/20 07/28/20 06:00 06:43 07:00 08:00 Pulse 133 133 131 133 Resp 32 59 B/P (MAP) 141/72 (95) 122/61 (81) 140/71 (94) Pulse Ox 96 99 95 O2 Delivery Nasal Cannula Nasal Cannula Nasal Cannula O2 Flow Rate 2.00 2.00 2.00 07/28/20 07/28/20 07/28/20 07/28/20 08:00 09:00 10:00 11:00 Pulse 134 115 120 Resp 32 B/P (MAP) 100/58 (72) 119/55 (76) 138/65 (89) Pulse Ox 98 98 98 O2 Delivery Nasal Cannula Nasal Cannula Nasal Cannula Nasal Cannula O2 Flow Rate 2.00 2.00 2.00 2.00 07/28/20 07/28/20 07/28/20 07/28/20 11:25 12:00 12:44 13:00 Temp 37.5 Pulse 126 133 128 B/P (MAP) 149/76 (100) 113/68 (83) Pulse Ox 96 97 O2 Delivery Nasal Cannula Nasal Cannula O2 Flow Rate 2.00 2.00 07/28/20 07/28/20 07/28/20 07/28/20 14:00 14:47 15:00 16:00 Temp 38.3 Pulse 124 129 Resp 59 42 B/P (MAP) 132/69 (90) 136/69 (91) 115/78 (90) O2 Delivery Nasal Cannula Nasal Cannula Nasal Cannula O2 Flow Rate 2.00 2.00 2.00 07/28/20 16:09 Pulse 126 07/28/20 00:00 Intake Total 3765 ml Output Total 1200 ml Balance 2565 ml Capillary Refill : Less Than 3 Seconds Constitutional: No AAO x 3; well-developed, well-nourished, other (confused, uncooperative ) HEENT: No oral hygience is good (multiple dental caries) Neck: No carotid bruit; carotid pulses are 2 + bilaterally Respiratory: chest expansion is symmetric, chest is bilaterally symmetric, other (tachypnea) Cardiovascular: No JVD; tachycardia Gastrointestinal: soft, round, audible bowel sounds Extremities: no lower extremity edema bilateral Neurologic/Psychiatric: other (moving all etremities) Skin: No rash on exposed areas, No ulcerations on exposed areas Data Review Labs Laboratory Tests 07/27/20 18:11: Glucometer 343H 07/27/20 19:15: Glucometer 320H 07/27/20 20:06: Glucometer 320H 07/27/20 20:17: Sodium Level 135, Potassium Level 4.5, Chloride Level 102, Carbon Dioxide Level 18L, Anion Gap 15H, Blood Urea Nitrogen 41H, Creatinine 1.63H, Estimat Glomerular Filtration Rate 45, BUN/Creatinine Ratio 25, Glucose Level 318H, Calcium Level 8.3L 07/27/20 21:53: Glucometer 281H 07/27/20 23:03: Glucometer 366H 07/27/20 23:53: Glucometer 183H 07/28/20 00:28: Sodium Level 134L, Potassium Level 4.1, Chloride Level 103, Carbon Dioxide Level 19L, Anion Gap 12, Blood Urea Nitrogen 40H, Creatinine 1.44H, Estimat Glomerular Filtration Rate 52, BUN/Creatinine Ratio 28, Glucose Level 217H, Lactic Acid Level 2.17*H, Calcium Level 8.1L 07/28/20 01:30: Glucometer 286H 07/28/20 02:55: Glucometer 257H 07/28/20 03:46: Glucometer 273H 07/28/20 03:47: White Blood Count 19.5H, Red Blood Count 3.57L, Hemoglobin 9.8L, Hematocrit 29L, Mean Corpuscular Volume 82, Mean Corpuscular Hemoglobin 28, Mean Corpuscular Hemoglobin Concent 34, Red Cell Distribution Width 13.3, Platelet Count 312, Mean Platelet Volume 11.0, Immature Granulocyte % (Auto) 3, Neutrophils (%) (Auto) 87H, Lymphocytes (%) (Auto) 7L, Monocytes (%) (Auto) 3, Eosinophils (%) (Auto) 0, Basophils (%) (Auto) 0, Neutrophils # (Auto) 16.9H, Lymphocytes # (Auto) 1.4, Monocytes # (Auto) 0.5, Eosinophils # (Auto) 0.1, Basophils # (Auto) 0.0, Immature Granulocyte # (Auto) 0.7H, Sodium Level 134L, Potassium Level 4.3, Chloride Level 103, Carbon Dioxide Level 19L, Anion Gap 12, Blood Urea Nitrogen 41H, Creatinine 1.45H, Estimat Glomerular Filtration Rate 51, BUN/Creatinine Ratio 28, Glucose Level 261H, Lactic Acid Level 1.65, Calcium Level 8.0L, Phosphorus Level 1.4L, Magnesium Level 1.6, Amylase Level 66, Lipase < 4L, Beta- Hydroxybutyrate (Chem panel) 0.31H 07/28/20 05:13: Glucometer 253H 07/28/20 06:14: Glucometer 260H 07/28/20 06:27: Blood Gas Puncture Site RT RAD, Blood Gas Patient Temperature 37.2, Arterial Blood pH 7.42, Arterial Blood Partial Pressure CO2 38, Arterial Blood Partial Pressure O2 75L, Arterial Blood HCO3 24, Arterial Blood Total CO2 25.2, Arterial Blood Oxygen Saturation 95, Arterial Blood Base Excess 0.1, Edmundo Test YES-POS, Blood Gas Ventilator Setting NO, Blood Gas Inspired Oxygen 2 L 07/28/20 07:17: Glucometer 262H 07/28/20 08:30: Sodium Level 135, Potassium Level 4.3, Chloride Level 104, Carbon Dioxide Level 19L, Anion Gap 12, Blood Urea Nitrogen 40H, Creatinine 1.46H, Estimat Glomerular Filtration Rate 51, BUN/Creatinine Ratio 27, Glucose Level 252H, Calcium Level 7.9L 07/28/20 09:01: Glucometer 257H 07/28/20 10:10: Glucometer 223H 07/28/20 11:07: Glucometer 216H 07/28/20 12:49: Glucometer 223H 07/28/20 13:00: Sodium Level 134L, Potassium Level 4.1, Chloride Level 105, Carbon Dioxide Level 21, Anion Gap 8, Blood Urea Nitrogen 37H, Creatinine 1.33H, Estimat Glomerular Filtration Rate 57, BUN/Creatinine Ratio 28, Glucose Level 148H, Calcium Level 7.9L 07/28/20 14:02: Glucometer 140H 07/28/20 15:34: Glucometer 143H 07/28/20 15:40: Sodium Level 134L, Potassium Level 4.0, Chloride Level 105, Carbon Dioxide Level 20L, Anion Gap 9, Blood Urea Nitrogen 35H, Creatinine 1.29, Estimat Glomerular Filtration Rate 59, BUN/Creatinine Ratio 27, Glucose Level 135H, Calcium Level 8.0L, Vancomycin Level Trough 11.4 Microbiology 07/28/20 Blood Culture - Preliminary, Resulted No growth 07/27/20 MRSA Screen - Final, Complete MRSA not isolated 07/26/20 Urine Culture - Final, Complete NO GROWTH Laboratory Tests 07/26/20 21:41 07/27/20 01:45 07/27/20 05:10 07/27/20 06:20 07/27/20 07:20 07/27/20 08:10 07/27/20 10:00 07/27/20 11:30 07/27/20 16:34 07/27/20 20:17 07/28/20 00:28 07/28/20 03:47 07/28/20 08:30 07/28/20 13:00 07/28/20 15:40 A/P-Cardiology Assessment/Admission Diagnosis Sepsis of undetermined etiology, managed by the Hospitalist bimal JENKINS Echo of 07/28/20: LVEF 70-75%, normal PASP H/O Methamphetamine abuse Sinus tachycardia likely secondary to sepsis and/or withdrawal DM - DKA Influenza B (+)\ WAN-3 Discussion and Recomendations If staph aureus is confirmed in cultures and if no other source is found, then REX when stable and able to provide consent IV BB to treat HR and BP Monitor lab Replace electrolytes as indicated Further recs will be based on his hospital course Clinical Quality Measures DVT/VTE Risk/Contraindication: Risk Factor Score Per Nursin RFS Level Per Nursing on Admit: 4+=Very High MUNIR CASTANEDA MD FACP FAC CCDS Jul 28, 2020 17:20
--- NOTE | 2020-07-28 17:24 | Consultation - Surgery ---
History of Present Illness History of Present Illness Patient Consulted On(carlton/time) 07/28/20 17:11 Time Seen by Provider: 16:41 History of Present Illness Surgery asked to consult regarding abdominal pain; r/o gallbladder. HPI per ER: PT HERE WITH FEVER, HIGH BLOOD SUGAR, AND AMS. STATES HE WAS SEEN AT [facility] IN [place] YESTERDAY FOR SIMILAR CC AND DISCHARGED. The patient presents to ER by private conveyance with his parents and chief complaint he is having altered mental status inability to walk and incontinence of urine. They said a couple days ago he called when he was out on business in [place] claiming he felt 6 of encourage him to go the ER. He also said he was out of his insulin. They are not sure what he found out when he went to the hospital but they did not apparently admit him. He called again today saying that he did not feel well and was very confused so they went out got him brought him home and gave him his metformin and omeprazole. Were not able to check his blood sugar because he did not have a glucometer. They brought him to the ER where the patient is altered, confused and talking about people being on him for fun and that he lost his insulin because it was either lost, misplaced or stolen. He says he is trying to get to his doctor, Dr. Mila Singer. Patient lives in [place]. When I saw pt they had just started Precedex because he was thrashing around in bed, complaining of some pain but also not really answering questions appropriately. Now he is completely asleep and does not wake up, but appears comfortable. Allergies and Home Medications Allergies Coded Allergies: No Known Drug Allergies (Unverified , 07/26/20) Patient Home Medication List Home Medication List Reviewed: Yes Past Fqqkzst-Ueolxo-Agrwcx Hx Patient Social History Alcohol Use: Denies Use Recreational Drug Use: Yes Drug of Choice: Meth Smoking Status: Never a Smoker Recent Foreign Travel: No Contact w/Someone Who Travel: No Recent Infectious Disease Expo: No Recent Hopitalizations: Yes Seasonal Allergies Seasonal Allergies: No Endocrine History of Endocrine Disorders: Yes Endocrine Disorders: Diabetes, Insulin dep Family Medical History Significant Family History: Other Conditions/Hx (unable to obtain, family not around and nothing in chart) Review of Systems-General ROS-Unable to Obtain: pt sedated Physical Exam-General Problems Physical Exam Vital Signs Vital Signs - First Documented 07/26/20 07/27/20 21:55 00:12 Temp 39.1 Pulse 146 Resp 42 B/P (MAP) 113/86 (95) Pulse Ox 98 O2 Delivery Room Air O2 Flow Rate 3.00 Capillary Refill : Less Than 3 Seconds General Appearance: WD/WN, no apparent distress Eyes: Bilateral Eye PERRL, Bilateral Eye EOMI HEENT: pharynx normal; No scleral icterus (R), No scleral icterus (L); other (poor dentition) Neck: non-tender; No thyromegaly Respiratory: chest non-tender, lungs clear, normal breath sounds, no respiratory distress, no accessory muscle use Cardiovascular: no murmur, tachycardia Gastrointestinal: normal bowel sounds, soft, no organomegaly, no pulsatile mass, hernia (small umbilical hernia) Extremities: no pedal edema, no calf tenderness, normal capillary refill Skin: normal color, damp Lymphatic: no adenopathy (neck, axilla or groin) Data Review Labs Laboratory Tests 07/27/20 18:11: Glucometer 343H 07/27/20 19:15: Glucometer 320H 07/27/20 20:06: Glucometer 320H 07/27/20 20:17: Sodium Level 135, Potassium Level 4.5, Chloride Level 102, Carbon Dioxide Level 18L, Anion Gap 15H, Blood Urea Nitrogen 41H, Creatinine 1.63H, Estimat Glomerular Filtration Rate 45, BUN/Creatinine Ratio 25, Glucose Level 318H, Calcium Level 8.3L 07/27/20 21:53: Glucometer 281H 07/27/20 23:03: Glucometer 366H 07/27/20 23:53: Glucometer 183H 07/28/20 00:28: Sodium Level 134L, Potassium Level 4.1, Chloride Level 103, Carbon Dioxide Level 19L, Anion Gap 12, Blood Urea Nitrogen 40H, Creatinine 1.44H, Estimat Glomerular Filtration Rate 52, BUN/Creatinine Ratio 28, Glucose Level 217H, Lactic Acid Level 2.17*H, Calcium Level 8.1L 07/28/20 01:30: Glucometer 286H 07/28/20 02:55: Glucometer 257H 07/28/20 03:46: Glucometer 273H 07/28/20 03:47: White Blood Count 19.5H, Red Blood Count 3.57L, Hemoglobin 9.8L, Hematocrit 29L, Mean Corpuscular Volume 82, Mean Corpuscular Hemoglobin 28, Mean Corpuscular Hemoglobin Concent 34, Red Cell Distribution Width 13.3, Platelet Count 312, Mean Platelet Volume 11.0, Immature Granulocyte % (Auto) 3, Neutrophils (%) (Auto) 87H, Lymphocytes (%) (Auto) 7L, Monocytes (%) (Auto) 3, Eosinophils (%) (Auto) 0, Basophils (%) (Auto) 0, Neutrophils # (Auto) 16.9H, Lymphocytes # (Auto) 1.4, Monocytes # (Auto) 0.5, Eosinophils # (Auto) 0.1, Basophils # (Auto) 0.0, Immature Granulocyte # (Auto) 0.7H, Sodium Level 134L, Potassium Level 4.3, Chloride Level 103, Carbon Dioxide Level 19L, Anion Gap 12, Blood Urea Nitrogen 41H, Creatinine 1.45H, Estimat Glomerular Filtration Rate 51, BUN/Creatinine Ratio 28, Glucose Level 261H, Lactic Acid Level 1.65, Calcium Level 8.0L, Phosphorus Level 1.4L, Magnesium Level 1.6, Amylase Level 66, Lipase < 4L, Beta-Hydroxybutyrate (Chem panel) 0.31H 07/28/20 05:13: Glucometer 253H 07/28/20 06:14: Glucometer 260H 07/28/20 06:27: Blood Gas Puncture Site RT RAD, Blood Gas Patient Temperature 37.2, Arterial Blood pH 7.42, Arterial Blood Partial Pressure CO2 38, Arterial Blood Partial Pressure O2 75L, Arterial Blood HCO3 24, Arterial Blood Total CO2 25.2, Arterial Blood Oxygen Saturation 95, Arterial Blood Base Excess 0.1, Edmundo Test YES-POS, Blood Gas Ventilator Setting NO, Blood Gas Inspired Oxygen 2 L 07/28/20 07:17: Glucometer 262H 07/28/20 08:30: Sodium Level 135, Potassium Level 4.3, Chloride Level 104, Carbon Dioxide Level 19L, Anion Gap 12, Blood Urea Nitrogen 40H, Creatinine 1.46H, Estimat Glomerular Filtration Rate 51, BUN/Creatinine Ratio 27, Glucose Level 252H, Calcium Level 7.9L 07/28/20 09:01: Glucometer 257H 07/28/20 10:10: Glucometer 223H 07/28/20 11:07: Glucometer 216H 07/28/20 12:49: Glucometer 223H 07/28/20 13:00: Sodium Level 134L, Potassium Level 4.1, Chloride Level 105, Carbon Dioxide Level 21, Anion Gap 8, Blood Urea Nitrogen 37H, Creatinine 1.33H, Estimat Glomerular Filtration Rate 57, BUN/Creatinine Ratio 28, Glucose Level 148H, Calcium Level 7.9L 07/28/20 14:02: Glucometer 140H 07/28/20 15:34: Glucometer 143H 07/28/20 15:40: Sodium Level 134L, Potassium Level 4.0, Chloride Level 105, Carbon Dioxide Level 20L, Anion Gap 9, Blood Urea Nitrogen 35H, Creatinine 1.29, Estimat Glomerular Filtration Rate 59, BUN/Creatinine Ratio 27, Glucose Level 135H, Calcium Level 8.0L, Vancomycin Level Trough 11.4 Microbiology 07/28/20 Blood Culture - Preliminary, Resulted No growth 07/27/20 MRSA Screen - Final, Complete MRSA not isolated 07/26/20 Urine Culture - Final, Complete NO GROWTH Radiology Date of Exam:07/28/20 CT CHEST/ABDOMEN/PELVIS WO PROCEDURE: CT chest, abdomen, and pelvis without contrast. TECHNIQUE: Multiple contiguous axial images were obtained through the chest, abdomen, and pelvis without the use of intravenous contrast. Auto Exposure Controls were utilized during the CT exam to meet ALARA standards for radiation dose reduction. INDICATION: Severe sepsis and abdominal pain. No prior studies are available for comparison. CT CHEST: No axillary lymphadenopathy is detected. Mediastinal and hilar evaluation is limited without intravenous contrast. No pericardial fluid is identified. There appears to be trace bilateral pleural fluid. There are several areas of patchy airspace infiltrate within both lungs, greatest in bilateral lower lobes. In addition, there are several tiny nodular densities, only a few millimeters in size in bilateral upper lobes, indeterminate. CT ABDOMEN AND PELVIS: Liver is unremarkable. There is some mild gallbladder distention but no definite gallstones are seen. No bile duct dilatation. The pancreas and spleen are unremarkable. No adrenal mass is detected. Left kidney is atrophic. The right kidney is unremarkable. Aorta is nonaneurysmal. Bowel loops are normal in caliber. No bowel obstruction is seen. There is moderate stool in the colon suggestive of constipation. There is diverticulosis of the sigmoid but no evidence of acute diverticulitis. The bladder is markedly thick walled and contains a Mane catheter and there is also small amount of gas. Prostate is enlarged. There are fat-containing inguinal hernias bilaterally. The bony structures are nonacute. IMPRESSION: 1. Trace bilateral pleural effusions with patchy bilateral airspace pulmonary infiltrates. In addition, there are several subcentimeter pulmonary nodules in the upper lobes bilaterally, indeterminate. While this could be infectious/inflammatory, metastatic disease cannot be entirely excluded and continued close followup to confirm clearing would be recommended. 2. Moderate gallbladder distention. Gallbladder ultrasound may be useful for further evaluation. 3. Significant bladder wall thickening, perhaps on the basis of cystitis. 4. Uncomplicated diverticulosis. 5. Prostatomegaly. Dictated by: Dictated on workstation # [id number] Dict: 07/28/20 0824 Trans: 07/28/201558 [id number] [id number] Interpreted by: ERIC POLANCO MD Electronically signed by: ERIC POLANCO MD 07/28/20 1554 Date of Exam:07/28/20 US ABDOMEN COMPLETE [id number] PROCEDURE: Ultrasound abdomen complete. TECHNIQUE: Multiple real-time grayscale images were obtained of the abdomen in various projections. INDICATION: Sepsis. FINDINGS: Liver is mildly enlarged 18.9 cm. No discrete liver mass is detected. The portal vein is patent and shows normal direction of flow. Gallbladder does show some dilatation measuring 11.2 x 5.4 x 5.6 cm. However, gallbladder wall is not thickened. No stones are identified. No pericholecystic fluid or definite biliary ductal dilatation is seen. The pancreas, spleen and aorta are obscured by bowel gas. IVC is patent. Left kidney is obscured. Right kidney is without calculi or hydronephrosis. There is no ascites. IMPRESSION: 1. Mild hepatomegaly. 2. Gallbladder hydrops but gallbladder wall is normal in thickness and no definite cholelithiasis is seen. If there is concern for cholecystitis, nuclear medicine HIDA scan may be useful for further evaluation. Dictated by: Dictated on workstation # [id number] Dict: 07/28/20 1442 Trans: 07/28/201558 AIG [id number] Interpreted by: ERIC POLANCO MD Electronically signed by: ERIC POLANCO MD 07/28/20 1559 Assessment/Plan Assessment/Plan Assessment/Plan Abdominal Pain Bacteremia Gallbladder Hydrops Mental status changes DKA Will order a HIDA scan, doubt GB is source of Bacteremia; wrong bug. But, could be source of his pain. Mental status may be due to DKA, withdrawal or something else.....plan for lumbar tap tomorrow. Max medical management to monitor glucose and replace as needed. His WBC is trending down, so ABX probably working. Continue current care. Clinical Quality Measures DVT/VTE Risk/Contraindication: Risk Factor Score Per Nursin RFS Level Per Nursing on Admit: 4+=Very High CROW ROMERO DO Jul 28, 2020 17:24
[2020-07-28] MEDS: D5 1/2 NS 1000 ML IV SOLUTION 1,000 ML IV SCH ×2 (17:39→20:20)
[2020-07-28] MEDS: meTOprolol 5 MG/5 ML (LOPRESSOR) VIAL IV SCH ×3 (19:31→23:14)
[2020-07-28] MEDS: VANCOMYCIN INJECTION 1,500 MG in NS IV 500 ML 500 ML IV SCH (19:35)
[2020-07-28] MEDS: OSELTAMIVIR 75 MG (TAMIFLU) CAPSULE PO SCH (20:19)
[2020-07-28] MEDS: inSUlin ASPART (NovoLOG) 1 UNIT/0.01 ML (CHARGE PER UNIT) SC SCH (23:14)
[2020-07-29] VITALS (23 sets, daily range): BP systolic 83–155; BP diastolic 47–135
[2020-07-29] MEDS ORDERED: ZIPRASIDONE 20 MG INJ (GEODON) VIAL IM ONE ×2 (00:27→14:10)
[2020-07-29] MEDS ORDERED: WATER (STERILE) FOR INJECTION 0 ML ONE (00:30)
[2020-07-29] MEDS ORDERED: WATER (STERILE) FOR INJECTION 10 ML ONE ×2 (00:33→14:10)
[2020-07-29] MEDS: ZIPRASIDONE INJECTION 20 MG in WATER (STERILE) FOR INJECTION 1.2 ML IM PRN ×2 (00:38→14:35)
[2020-07-29] MEDS: DexMEDEtomidine PRE MIX 100 ML IV PRN ×6 (01:11→23:13)
[2020-07-29] MEDS: meTOprolol 5 MG/5 ML (LOPRESSOR) VIAL IV SCH ×6 (04:09→23:11)
[2020-07-29 04:36] LABS: BASOPHILS % (AUTO) 0 % (0-10); EOSINOPHILS # (AUTO) 0.1 10^3/uL (0.0-0.3); EOSINOPHILS % (AUTO) 1 % (0-10); HEMATOCRIT 24 % (40-54); LYMPHOCYTES # (AUTO) 0.8 10^3/uL (1.0-4.0); LYMPHOCYTES % (AUTO) 7 % (12-44); MEAN CORPUSCULAR HEMOGLOBIN 28 pg (25-34); MEAN CORPUSCULAR HGB CONC 33 g/dL (32-36); MEAN CORPUSCULAR VOLUME 83 fL (80-99); MEAN PLATELET VOLUME 11.3 fL (9.0-12.2); MONOCYTES # (AUTO) 0.5 10^3/uL (0.0-1.0); MONOCYTES % (AUTO) 5 % (0-12); NEUTROPHILS # (AUTO) 9.3 10^3/uL (1.8-7.8); NEUTROPHILS % (AUTO) 82 % (42-75); PLATELET COUNT 275 10^3/uL (130-400); WHITE BLOOD COUNT 11.4 10^3/uL (4.3-11.0)
[2020-07-29] MEDS ORDERED: LACTATED RINGERS 1,000 ML IV SCH (05:00)
--- NOTE | 2020-07-29 05:01 | Pulmonary Progress Note ---
Subjective Time Seen by a Provider: 04:56 Sepsis Event Evaluation Height, Weight, BMI Height: '" Weight: lbs. oz. kg; 28.50 BMI Method: Focused Exam Lactate Level 07/27/20 12:52: Lactic Acid Level 2.68*H 07/28/20 00:28: Lactic Acid Level 2.17*H 07/28/20 03:47: Lactic Acid Level 1.65 Time of Focused Exam: 00:14 Exam Exam Vital Signs Date Time Temp Pulse Resp B/P (MAP) Pulse Ox O2 Delivery O2 Flow Rate FiO2 07/29/20 04:18 87 12 88/47 (61) 100 Nasal Cannula 2.00 07/29/20 04:18 88/49 (62) 07/29/20 04:00 96 Nasal Cannula 2.00 07/29/20 03:00 90 24 94/52 (66) 99 Nasal Cannula 2.00 07/29/20 02:00 96 12 111/74 (86) 97 Nasal Cannula 2.00 07/29/20 01:11 95 39 94/75 99 Nasal Cannula 2.00 07/29/20 01:08 100 26 94/75 (81) 94 Nasal Cannula 2.00 07/29/20 01:00 93 07/29/20 00:53 Nasal Cannula 2.00 07/29/20 00:14 98 30 98/69 (79) 96 Room Air 07/28/20 23:00 36.8 Room Air 07/28/20 23:00 109 100 Room Air 07/28/20 23:00 100 Room Air 07/28/20 22:00 105 21 99/71 (80) 95 Room Air 07/28/20 21:00 103 22 100/88 (92) 100 Room Air 07/28/20 20:22 97 18 110/63 100 Room Air 07/28/20 20:00 100 Room Air 07/28/20 20:00 101 25 110/63 (79) 94 Room Air 07/28/20 19:20 36.7 101 32 100 Room Air 07/28/20 19:00 101 07/28/20 19:00 101 25 101/56 (71) 96 Nasal Cannula 2.00 07/28/20 18:00 110 97/43 (61) 97 Nasal Cannula 2.00 07/28/20 17:00 98/49 (65) Nasal Cannula 2.00 07/28/20 16:09 126 07/28/20 16:00 129 42 115/78 (90) Nasal Cannula 2.00 07/28/20 16:00 Room Air 07/28/20 15:00 136/69 (91) Nasal Cannula 2.00 07/28/20 14:47 38.3 07/28/20 14:00 124 59 132/69 (90) Nasal Cannula 2.00 07/28/20 13:00 128 113/68 (83) 97 Nasal Cannula 2.00 07/28/20 12:44 133 07/28/20 12:00 126 149/76 (100) 96 Nasal Cannula 2.00 07/28/20 12:00 Nasal Cannula 2.00 07/28/20 11:25 37.5 07/28/20 11:00 120 138/65 (89) 98 Nasal Cannula 2.00 07/28/20 10:00 115 119/55 (76) 98 Nasal Cannula 2.00 07/28/20 09:00 134 32 100/58 (72) 98 Nasal Cannula 2.00 07/28/20 08:00 Nasal Cannula 2.00 07/28/20 08:00 133 59 140/71 (94) 95 Nasal Cannula 2.00 07/28/20 07:00 131 122/61 (81) 99 Nasal Cannula 2.00 07/28/20 06:43 133 07/28/20 06:00 133 32 141/72 (95) 96 Nasal Cannula 2.00 07/28/20 05:00 133 136/75 (95) 97 Nasal Cannula 2.00 I & O 07/29/20 07:00 Intake Total 765 ml Output Total 2250 ml Balance -1485 ml Height & Weight Height: '" Weight: lbs. oz. kg; 28.50 BMI Method: General Appearance: Mild Distress HEENT: Pharynx Normal, Other (pinpoint pupils bilaterally) Neck: Normal Inspection, Supple Respiratory: Lungs Clear, No Respiratory Distress Cardiovascular: No Murmur, Tachycardia Capillary Refill: Less Than 3 Seconds Peripheral Pulses: 2+ Radial Pulses (R), 2+ Radial Pulses (L) Gastrointestinal: normal bowel sounds, soft, no organomegaly, no pulsatile mass, hernia (small umbilical hernia) Extremity: No Calf Tenderness, No Pedal Edema Neurologic/Psychiatric: Alert Skin: Normal Color, Damp, Diaphoresis Results Lab Laboratory Tests 10/4/20 05:10 07/27/20 06:20 07/27/20 07:20 07/27/20 08:10 07/27/20 10:00 07/27/20 11:30 07/27/20 16:34 07/27/20 20:17 07/28/20 00:28 07/28/20 03:47 07/28/20 08:30 07/28/20 13:00 07/28/20 15:40 Assessment/Plan Assessment/Plan DKA -DKA protocol -Continue to monitor Hypotension -Give a liter bolus of LR Methamphetamine use -education Lethargy -Check ammnoia and thyroid studies -Check CT of head -Hold Ativan -Continue PRN morphine and Geodon for now -Precedex PRN -Check ABG Bacteremia -May need REX -Will check echo Abdominal pain - -Check amylase lipase -Check CT of Abd without contrast Influenza B + -COVID is negative -Tamiflu Anemia -Monitor MELISA VERA DO Jul 29, 2020 05:01
[2020-07-29 05:04] LABS: POTASSIUM 4.9 MMOL/L (3.6-5.0)
[2020-07-29 05:05] LABS: CALCIUM 7.5 MG/DL (8.5-10.1)
[2020-07-29 05:09] LABS: CREATININE SERUM 1.48 MG/DL (0.60-1.30); PHOSPHORUS 1.9 MG/DL (2.3-4.7)
[2020-07-29 05:12] LABS: MAGNESIUM 1.7 MG/DL (1.6-2.4)
[2020-07-29] MEDS: inSUlin ASPART (NovoLOG) 1 UNIT/0.01 ML (CHARGE PER UNIT) SC SCH ×4 (05:17→23:17)
[2020-07-29 05:37] LABS: FREE T4 (FREE THYROXINE) 0.79 NG/DL (0.70-1.48)
[2020-07-29] MEDS ORDERED: ENOXAPARIN 40 MG/0.4 ML (LOVENOX) SYR SC SCH (06:00)
--- NOTE | 2020-07-29 07:50 | Progress Note - Hospitalist ---
Subjective HPI/CC On Admission Date Seen by Provider: Jul 29, 2020 Time Seen by Provider: 07:44 Dino Moreau is a 50-year-old male with H insulin-dependent diabetes mellitus, methamphetamine abuse, who presented with altered mental status. He had reportedly been out of his insulin according to his parents. He had been too weak to walk and was incontinent of urine.in the emergency room, he was found to be in diabetic ketoacidosis. At the time of my exam, he is lethargic, uncooperative, and unable to provide any history. Subjective/Events-last exam Pt remains confused. Laying in bed. Grimacing at times but calms when I hold his hand. Focused Exam Lactate Level 07/27/20 12:52: Lactic Acid Level 2.68*H 07/28/20 00:28: Lactic Acid Level 2.17*H 07/28/20 03:47: Lactic Acid Level 1.65 Time of Focused Exam: 00:14 Objective Exam Vital Signs Vital Signs Date Time Temp Pulse Resp B/P (MAP) Pulse Ox O2 Delivery O2 Flow Rate FiO2 07/29/20 07:38 37.8 07/29/20 07:00 94 11 99/58 (72) 95 Nasal Cannula 2.00 Capillary Refill : Less Than 3 Seconds General Appearance: Anxious, Mild Distress Respiratory: Lungs Clear, No Respiratory Distress Cardiovascular: Regular Rate, Rhythm, No Murmur Gastrointestinal: Normal Bowel Sounds, Soft Neurologic/Psychiatric: Alert (opens eyes to verbal stimuli, otherwise does not follow commands or interact appropriately) Results/Procedures Lab Laboratory Tests 07/28/20 08:30 07/28/20 13:00 07/28/20 15:40 07/29/20 04:25 Patient resulted labs reviewed. Imaging: Reviewed Imaging Report Assessment/Plan Assessment and Plan Assess & Plan/Chief Complaint Diabetic ketoacidosis- resolved High anion gap metabolic acidosis Hyperkalemia Hyponatremia - BS improving Na 134 today Potassium mildly elevated Insulin GTT IV fluids per protocol Septic shock MRSA bacteremia Influenza B infection Acute kidney injury Encephalopathy procalcitonin 72 creatinine now 1.48 Chest x-ray with no acute abnormalities Vancomycin and cefepime for MRSA bacteremia influenza B+ Tamiflu COVID RODRIGO negative, PCR negative - Cardiology consulted for possible REX - Precedex for agitation for possible withdrawal - Risperdal added as well Methamphetamine abuse Possible source of bacteremia, no obvious track baeza noted Social work consult DVT Prophylaxis: Lovenox Diagnosis/Problems Diagnosis/Problems (1) Encephalopathy (2) Elevated procalcitonin Status: Acute (3) Gram-positive cocci bacteremia Status: Acute (4) High anion gap metabolic acidosis Status: Acute (5) Acute kidney injury Status: Acute (6) Metabolic encephalopathy Status: Acute (7) Influenza B Status: Acute (8) Hyponatremia Status: Acute (9) Lactic acidosis Status: Acute (10) Hyperkalemia Status: Acute (11) Septic shock Status: Acute Clinical Quality Measures DVT/VTE Risk/Contraindication: Risk Factor Score Per Nursin RFS Level Per Nursing on Admit: 4+=Very High CHAD ESPINO MD Jul 29, 2020 07:50
[2020-07-29] MEDS: risperiDONE 1 MG (RisperDAL) TAB PO SCH ×2 (08:01→19:41)
[2020-07-29] MEDS: OSELTAMIVIR 75 MG (TAMIFLU) CAPSULE PO SCH ×2 (08:01→19:41)
[2020-07-29] MEDS: PANTOPRAZOLE 40 MG (PROTONIX) VIAL IV SCH (08:20)
[2020-07-29] MEDS: morphine INJ 4 MG/ML 1 ML (VIAL/SYRINGE) IVP PRN ×2 (08:23→19:45)
[2020-07-29] MEDS: MIDAZOLAM 2 MG/2 ML (VERSED) VIAL IVP PRN (08:35)
--- NOTE | 2020-07-29 08:41 | Progress Note - Surgery ---
JACI ADEN MED STUDENT 07/29/20 0841: Subjective Time Seen by a Provider: 08:15 Subjective/Events-last exam PT WAKE BUT NON-COMMUNICATING APON VISIT, UNSURE IF THIS IS DUE TO AMS OR PAIN PT WAS CLEARLY IN DISTRESSED AND CURLED OVER LATERAL RECUMBENT. WHEN MYSELF AND A NURSE MOVED HIM OVER TO SUPINE FOR A PE THE PTS PAIN CLEARLY YOGESH. PT WAS IN PAIN AT REST THROUGHOUT THE ABD EXAM SO IT WAS DIFFICULT TO DETERMINE IF PT WAS RESPONDING TO ABD PRESSURE, PTS PAIN DID NOT GET CLEARLY WORSE DURING ABD EXAM. PAIN WAS ONLY CLEARLY EXACERBATED BY CHANGING THE PTS RESTING POSITION DURING VISIT. ROS COULD NOT BE OBTAINED. Review of Systems ROS COULD NOT BE REVIEWED WITH PT. Focused Exam Lactate Level 07/27/20 12:52: Lactic Acid Level 2.68*H 07/28/20 00:28: Lactic Acid Level 2.17*H 07/28/20 03:47: Lactic Acid Level 1.65 Time of Focused Exam: 00:14 Objective Exam Vital Signs Date Time Temp Pulse Resp B/P (MAP) Pulse Ox O2 Delivery O2 Flow Rate FiO2 07/29/20 07:38 37.8 07/29/20 07:00 94 11 99/58 (72) 95 Nasal Cannula 2.00 07/29/20 06:27 92 27 91/57 100 Nasal Cannula 2.00 07/29/20 06:05 87 8 91/57 (68) 96 Nasal Cannula 2.00 07/29/20 05:00 85 24 88/48 (61) 100 Nasal Cannula 2.00 07/29/20 04:18 87 12 88/47 (61) 100 Nasal Cannula 2.00 07/29/20 04:18 88/49 (62) 07/29/20 04:00 96 Nasal Cannula 2.00 07/29/20 03:00 90 24 94/52 (66) 99 Nasal Cannula 2.00 07/29/20 02:00 96 12 111/74 (86) 97 Nasal Cannula 2.00 07/29/20 01:11 95 39 94/75 99 Nasal Cannula 2.00 07/29/20 01:08 100 26 94/75 (81) 94 Nasal Cannula 2.00 07/29/20 01:00 93 07/29/20 00:53 Nasal Cannula 2.00 07/29/20 00:14 98 30 98/69 (79) 96 Room Air 07/28/20 23:00 36.8 Room Air 07/28/20 23:00 109 100 Room Air 07/28/20 23:00 100 Room Air 07/28/20 22:00 105 21 99/71 (80) 95 Room Air 07/28/20 21:00 103 22 100/88 (92) 100 Room Air 07/28/20 20:22 97 18 110/63 100 Room Air 07/28/20 20:00 100 Room Air 07/28/20 20:00 101 25 110/63 (79) 94 Room Air 07/28/20 19:20 36.7 101 32 100 Room Air 07/28/20 19:00 101 07/28/20 19:00 101 25 101/56 (71) 96 Nasal Cannula 2.00 07/28/20 18:00 110 97/43 (61) 97 Nasal Cannula 2.00 07/28/20 17:00 98/49 (65) Nasal Cannula 2.00 07/28/20 16:09 126 07/28/20 16:00 129 42 115/78 (90) Nasal Cannula 2.00 07/28/20 16:00 Room Air 07/28/20 15:00 136/69 (91) Nasal Cannula 2.00 07/28/20 14:47 38.3 07/28/20 14:00 124 59 132/69 (90) Nasal Cannula 2.00 07/28/20 13:00 128 113/68 (83) 97 Nasal Cannula 2.00 07/28/20 12:44 133 07/28/20 12:00 126 149/76 (100) 96 Nasal Cannula 2.00 07/28/20 12:00 Nasal Cannula 2.00 07/28/20 11:25 37.5 07/28/20 11:00 120 138/65 (89) 98 Nasal Cannula 2.00 07/28/20 10:00 115 119/55 (76) 98 Nasal Cannula 2.00 07/28/20 09:00 134 32 100/58 (72) 98 Nasal Cannula 2.00 I & O 07/29/20 07:00 Intake Total 1865 ml Output Total 2400 ml Balance -535 ml Capillary Refill : Less Than 3 Seconds General Appearance: Anxious, Moderate Distress HEENT: Other (pinpoint pupils bilaterally) Respiratory: Lungs Clear, No Respiratory Distress Cardiovascular: Regular Rate, Rhythm, No Edema, No Murmur Peripheral Pulses: 2+ Dorsalis Pedis (R), 2+ Left Dors-Pedis (L), 2+ Radial Pulses (R), 2+ Radial Pulses (L) Gastrointestinal: soft, no organomegaly, no pulsatile mass, abnormal bowel sounds (HYPOACTIVE BS X4), hernia (small umbilical hernia), other (TENDERNESS COULD NOT BE EVALUATED DO TO PTS RESTING PAIN LEVEL. ) Extremity: No Calf Tenderness, No Pedal Edema Neurologic/Psychiatric: Alert (opens eyes to verbal stimuli, otherwise does not follow commands or interact appropriately) Skin: Normal Color Results Lab Laboratory Tests 07/28/20 09:01: Glucometer 257H 07/28/20 10:10: Glucometer 223H 07/28/20 11:07: Glucometer 216H 07/28/20 12:49: Glucometer 223H 07/28/20 13:00: Sodium Level 134L, Potassium Level 4.1, Chloride Level 105, Carbon Dioxide Level 21, Anion Gap 8, Blood Urea Nitrogen 37H, Creatinine 1.33H, Estimat Glomerular Filtration Rate 57, BUN/Creatinine Ratio 28, Glucose Level 148H, Calcium Level 7.9L 07/28/20 14:02: Glucometer 140H 07/28/20 15:34: Glucometer 143H 07/28/20 15:40: Sodium Level 134L, Potassium Level 4.0, Chloride Level 105, Carbon Dioxide Level 20L, Anion Gap 9, Blood Urea Nitrogen 35H, Creatinine 1.29, Estimat Glomerular Filtration Rate 59, BUN/Creatinine Ratio 27, Glucose Level 135H, Calcium Level 8.0L, Vancomycin Level Trough 11.4 07/28/20 17:27: Glucometer 101 07/28/20 18:26: Glucometer 132H 07/28/20 19:26: Glucometer 208H 07/28/20 23:01: Glucometer 206H 07/29/20 04:25: White Blood Count 11.4H, Red Blood Count 2.90L, Hemoglobin 8.0L, Hematocrit 24L, Mean Corpuscular Volume 83, Mean Corpuscular Hemoglobin 28, Mean Corpuscular Hemoglobin Concent 33, Red Cell Distribution Width 13.6, Platelet Count 275, Mean Platelet Volume 11.3, Immature Granulocyte % (Auto) 5, Neutrophils (%) (Auto) 82H, Lymphocytes (%) (Auto) 7L, Monocytes (%) (Auto) 5, Eosinophils (%) (Auto) 1, Basophils (%) (Auto) 0, Neutrophils # (Auto) 9.3H, Lymphocytes # (Auto) 0.8L, Monocytes # (Auto) 0.5, Eosinophils # (Auto) 0.1, Basophils # (Auto) 0.0, Immature Granulocyte # (Auto) 0.6H, Sodium Level 133L, Potassium Level 4.9, Chloride Level 104, Carbon Dioxide Level 19L, Anion Gap 10, Blood Urea Nitrogen 38H, Creatinine 1.48H, Estimat Glomerular Filtration Rate 50, BUN/Creatinine Ratio 26, Glucose Level 239H, Glucometer 256H, Calcium Level 7.5L , Phosphorus Level 1.9L, Magnesium Level 1.7, Ammonia 33H, Beta-Hydroxybutyrate (Chem panel) 0.09, Thyroid Stimulating Hormone (TSH) 1.04, Free Thyroxine 0.79 07/29/20 05:16: Glucometer 299H Microbiology 07/28/20 Blood Culture - Preliminary, Resulted No growth 07/27/20 MRSA Screen - Final, Complete MRSA not isolated 07/26/20 Urine Culture - Final, Complete NO GROWTH Assessment/Plan Assessment/Plan Admission Diagonsis SEPSIS, DKA & METHAMPHETAMINE ABUSE Assessment/Plan ACUTE ABDOMINAL PAIN: DIFFICULT TO DETERMINE LEVEL OF ABD PAIN ON PE, 07/28 ABD U/S SHOWED GALLBLADDER HYDROPS BUT WAS NEG FOR STONES, CONTINUE WITH HIDA SCAN TODAY. DKA WITH ANION GAP METABOLIC ACIDOSIS: STABILIZING, CONTINUE FLUIDS AND MONITOR BLOOD GLUCOSE AND POTASSIUM LEVELS. SEPSIS: 07/26 BLOOD CULTURE SHOWS STAPH AUREOUS. WBC COUNT DROPPED FROM 19.5 TO 11.4 TODAY. LUMBAR PUNCTURE TO BE PERFORMED LATER TODAY, CONSIDER ESOPHAGEAL ECHO IF SOURCE OF SEPSIS REMAINS UNKNOWN, PT HAS HX OF DRUG ABUSE. ACUTE ANEMIA: LIKELY DILUTIONAL IN NATURE, CONSIDER CONTRIBUTION OF ACUTE ABD BLEEDING. TRANSFUSE IF HGB DROPS BELOW 7.0. Clinical Quality Measures DVT/VTE Risk/Contraindication: Risk Factor Score Per Nursin RFS Level Per Nursing on Admit: 4+=Very High Supervisory-Addendum Brief Verification & Attestation Participated in pt care: history, physical Personally performed: exam, history Care discussed with: Medical Student Procedures: n/a HISTORY AND PE PERFORMED BY ELROY ADEN, RE-EVALUATED BY DR ROMERO. CROW ROMERO DO 07/29/20 1159: Subjective Time Seen by a Provider: 11:46 Subjective/Events-last exam Pt seen and examined, still not responding to questions. Review of Systems unable to obtain Objective Exam General Appearance: Anxious, Moderate Distress Respiratory: Lungs Clear, No Respiratory Distress Cardiovascular: Regular Rate, Rhythm, No Murmur Gastrointestinal: soft, tenderness (with deep palpation, but not always repro ducible), hernia (small umbilical hernia) Neurologic/Psychiatric: Alert (opens eyes to verbal stimuli, otherwise does not follow commands or interact appropriately) Assessment/Plan Assessment/Plan Assessment/Plan Abdominal Pain - HIDA showed no acute cholecystitis DKA - resolving Bacteremia - recent blood culture negative Anemia - most likely dilutional No acute surgery needed at this time will follow along. Supervisory-Addendum Brief Verification & Attestation Participated in pt care: history, MDM, physical Personally performed: history, MDM Care discussed with: Medical Student Procedures: n/a Verification and Attestation of Medical Student E/M Service A medical student performed and documented this service. I then reviewed and verified all information documented by the medical student and made modificati ons to such information, when appropriate. I personally performed a physical exam, medical decision making and then discussed any differences between the notes and made revisions as necessary to create one note. Crow Romero , 07/29/20 , 11:59 JACI ADEN MED STUDENT Jul 29, 2020 08:41 CROW ROMERO DO Jul 29, 2020 11:59
--- NOTE | 2020-07-29 09:53 | Diagnostic Imaging Report ---
RADIOPHARMACEUTICAL: 5.49mCi Tc-99m Choletec IV INDICATION: Gallbladder hydrops TECHNIQUE: Anterior dynamic imaging for 40 minutes. Examination was terminated early secondary to patient agitation. FINDINGS: There is homogenous uptake throughout the liver. The small bowel is identified within the first 25 minutes of imaging. What is felt to likely relate to the gallbladder is identified within the first 20 minutes of imaging. Examination was stopped at 40 minutes of imaging secondary to patient agitation. IMPRESSION: Limited examination secondary to patient agitation. In particular, examination was stopped at 40 minutes. The small bowel is identified within the first 25 minutes of imaging, therefore, there is no evidence of common duct obstruction. What likely relates to the gallbladder is seen within the first 20 minutes of imaging. This suggests that there is no acute cholecystitis. Dictated by: Dictated on workstation # [id number]
--- NOTE | 2020-07-29 12:03 | NUR ---
PTD VANCOMYCIN LABS: SCR 1.48 VANCOMYCIN LEVEL 11.4 CULTURES: mrsa BACTEREMIA PLAN: CHANGE VANCOMYCIN TO 1,250MG IV Q 12 HOURS, NEXT DOSE DUE AT 1700. WILL REPEAT A TROUGH LEVEL ON 07/31 @ 0400 - GOAL RANGE 15-20. MONITOR RENAL FXN/SCR CLOSELY AND EITHER RECHECK A LEVEL SOONER AND/OR ADJUST DOSING IF NEEDED.
[2020-07-29 12:48] LABS: CSF GLUCOSE 105 MG/DL (50-80)
[2020-07-29 13:07] LABS: APPEARANCE,CSF CLEAR; COLOR,CSF COLORLESS; RED BLOOD CELL,CSF 4 CELLS (0-0); WHITE BLOOD CELL,CSF 2 CELLS (0-5)
[2020-07-29 13:08] LABS: CSF TUBE NUMBER 4
--- NOTE | 2020-07-29 13:17 | Anesthesia-Procedure Note ---
Procedures/Interventions Procedure Start/Stop/Diagnosis Date of Procedure: Jul 29, 2020 Start Time: 11:55 Referring Physician: Maryan Brief History Consulted for lumbar puncture. Pt uncooperative, with altered mental status, thrashing around in bed. Verified with nurse she had obtained proper verbal consent for procedure. Versed 2mg and Morphine 2mg IV given to facilitate positioning. Pt repostitioned left lateral. Localized with 1% Lidocaine 3mL with 25G needle. Lumbar puncture x1 attempt by Lizett LEWIS, with redirect by VALERIE. Successful backflow of clear CSF. Opening pressure of 20cm H2O. Collected 4 vials with 3mL of fluid each, labeled and taken to lab by ICU, RN. Two RNs at bedside to assist with positioning and monitoring of patient throughout. Vital signs stable, see nurses notes. Stop Time: 12:15 Lumbar Puncture Discussed Risk,Benefits: Yes Patient Consents: Yes (verbal consent from POA/next of kin) Position: Lying, L3-4, Left Sterile Technique: Yes Opening Pressure: 20 Fluid Color: clear Spinal Needle Used: Other (22G Pencan) PAOLA SINCLAIR CRNA Jul 29, 2020 13:17
[2020-07-29] MEDS: ACETAMINOPHEN 650 MG SUPP (TYLENOL) PR PRN (13:24)
[2020-07-29 13:53] LABS: LYMPHOCYTES,CSF 35 %
--- NOTE | 2020-07-29 13:59 | Progress Note - Cardiology ---
Cardiology SOAP Progress Note Subjective: Thrashing around in the bed. Uncooperative with exam. Unable to obtain any information from pt. Objective: I&O/Vital Signs 07/29/20 07/29/20 07/29/20 07/29/20 20:26 21:18 21:20 22:00 Pulse 81 80 75 Resp 21 28 B/P (MAP) 90/64 (73) 91/63 (72) 83/55 (64) Pulse Ox 91 92 96 O2 Delivery Room Air Room Air Nasal Cannula Nasal Cannula O2 Flow Rate 2.00 2.00 07/29/20 07/29/20 07/29/20 07/29/20 23:00 23:13 23:15 23:16 Temp 36.7 Pulse 70 Resp 25 B/P (MAP) 88/57 (67) 88/57 Pulse Ox 100 98 O2 Delivery Nasal Cannula Nasal Cannula Nasal Cannula O2 Flow Rate 2.00 2.00 2.00 07/30/20 07/30/20 07/30/20 07/30/20 00:00 01:00 01:00 02:00 Pulse 85 91 91 94 Resp 22 23 B/P (MAP) 104/80 (88) 110/77 (88) 113/80 (91) Pulse Ox 96 96 94 O2 Delivery Nasal Cannula Nasal Cannula Nasal Cannula O2 Flow Rate 2.00 2.00 2.00 07/30/20 07/30/20 07/30/20 07/30/20 03:00 03:10 03:30 04:00 Temp 37.0 Pulse 101 89 Resp 35 19 B/P (MAP) 112/64 (80) 112/64 Pulse Ox 96 98 94 O2 Delivery Nasal Cannula Nasal Cannula Nasal Cannula Nasal Cannula O2 Flow Rate 2.00 2.00 2.00 2.00 07/30/20 07/30/20 07/30/20 07/30/20 04:37 05:22 05:23 06:00 Pulse 90 80 78 84 Resp 16 23 28 B/P (MAP) 115/67 (83) 84/61 84/64 (71) 93/50 (64) Pulse Ox 95 95 94 98 O2 Delivery Nasal Cannula Nasal Cannula Nasal Cannula Nasal Cannula O2 Flow Rate 2.00 2.00 2.00 2.00 07/29/20 23:59 Intake Total 2462.5 ml Output Total 825 ml Balance 1637.5 ml Constitutional: No AAO x 3; well-developed, well-nourished, other (confused, uncooperative ) Respiratory: chest expansion is symmetric, chest is bilaterally symmetric, other (tachypnea) Cardiovascular: No JVD; tachycardia Gastrointestional: soft, round, audible bowel sounds Extremities: no lower extremity edema bilateral Neurologic/Psychiatric: other (moving all etremities) Skin: No rash on exposed areas, No ulcerations on exposed areas Results/Procedures: Labs Laboratory Tests 07/29/20 11:10: Glucometer 289H 07/29/20 12:15: CSF Tube Number 4, CSF Appearance CLEAR, CSF Color COLORLESS, CSF WBC 2, CSF RBC 4H, CSF Lymphocytes 35, CSF Mononuclear WBCs 17, CSF Polynuclear WBCs 48, CSF Glucose 105H 07/29/20 17:35: Glucometer 286H 07/29/20 23:14: Glucometer 308H 07/30/20 03:00: White Blood Count 16.7H, Red Blood Count 3.10L, Hemoglobin 8.5L, Hematocrit 26L, Mean Corpuscular Volume 83, Mean Corpuscular Hemoglobin 27, Mean Corpuscular Hemoglobin Concent 33, Red Cell Distribution Width 13.9, Platelet Count 321, Mean Platelet Volume 11.1, Immature Granulocyte % (Auto) 7, Neutrophils (%) (Auto) 79H, Lymphocytes (%) (Auto) 8L, Monocytes (%) (Auto) 5, Eosinophils (%) (Auto) 1, Basophils (%) (Auto) 0, Neutrophils # (Auto) 13.2H, Lymphocytes # (Auto) 1.3, Monocytes # (Auto) 0.8, Eosinophils # (Auto) 0.2, Basophils # (Auto) 0.1, Immature Granulocyte # (Auto) 1.2H, Sodium Level 137, Potassium Level 4.0, Chloride Level 109H, Carbon Dioxide Level 18L, Anion Gap 10, Blood Urea Nitrogen 44H, Creatinine 1.36H, Estimat Glomerular Filtration Rate 55, BUN/Creatinine Ratio 32, Glucose Level 152H, Calcium Level 7.4L, Phosphorus Level 2.5, Magnesium Level 1.7, Beta-Hydroxybutyrate (Chem panel) 0.05 Microbiology 07/29/20 Gram Stain - Final, Resulted 07/29/20 CSF Culture, Resulted Pending 07/28/20 Blood Culture - Preliminary, Resulted No growth 07/27/20 MRSA Screen - Final, Complete MRSA not isolated 07/26/20 Urine Culture - Final, Complete NO GROWTH Procedures NAME: MARY CALIXTO [facility] REC#: [id number] PT STATUS: ADM IN : 1970 PHYSICIAN: CROW ROMERO DO ADMIT DATE: 07/27/20/ICU Signed Date of Exam:07/29/20 HEPATOBILIARY WITHOUT EJECTION RADIOPHARMACEUTICAL: 5.49mCi Tc-99m Choletec IV INDICATION: Gallbladder hydrops TECHNIQUE: Anterior dynamic imaging for 40 minutes. Examination was terminated early secondary to patient agitation. FINDINGS: There is homogenous uptake throughout the liver. The small bowel is identified within the first 25 minutes of imaging. What is felt to likely relate to the gallbladder is identified within the first 20 minutes of imaging. Examination was stopped at 40 minutes of imaging secondary to patient agitation. IMPRESSION: Limited examination secondary to patient agitation. In particular, examination was stopped at 40 minutes. The small bowel is identified within the first 25 minutes of imaging, therefore, there is no evidence of common duct obstruction. What likely relates to the gallbladder is seen within the first 20 minutes of imaging. This suggests that there is no acute cholecystitis. Dictated by: Dictated on workstation # [id number] Dict: 07/29/20 0943 Trans: 07/29/20 1018 CVB [id number] Interpreted by: LARRY ORNELAS MD Electronically signed by: LARRY ORNELAS MD 07/29/20 1018 A/P: Assessment: Sepsis of undetermined etiology, managed by the Hospitalist bimal MRSA (+) 4/4 cultures - source unknown Encephalopathy AMS Echo of 07/28/20: LVEF 70-75%, normal PASP H/O Methamphetamine abuse Sinus tachycardia likely secondary to sepsis and/or withdrawal DM - DKA (resolved) Influenza B (+)\ WAN-3 Anemia of undetermined etiology - management per medical services Plan: MRSA confirmed in cultures, source undetermined - management per medical/ICU services If no other source is found, then REX when stable and able to provide consent IV BB to treat HR and BP Monitor lab Replace electrolytes as indicated S/P HIDA scan (-) S/P lumbar puncture DIVINA LYLES CHILD CARE TEAM LEAD Jul 29, 2020 13:59
--- NOTE | 2020-07-29 15:41 | Progress Note - Cardiology ---
Cardiology SOAP Progress Note Subjective: Not able to provide any history Objective: I&O/Vital Signs 07/29/20 07/29/20 07/29/20 07/29/20 04:00 04:18 04:18 05:00 Pulse 87 85 Resp 12 24 B/P (MAP) 88/49 (62) 88/47 (61) 88/48 (61) Pulse Ox 96 100 100 O2 Delivery Nasal Cannula Nasal Cannula Nasal Cannula O2 Flow Rate 2.00 2.00 2.00 07/29/20 07/29/20 07/29/20 07/29/20 06:05 06:27 06:52 07:00 Pulse 87 92 93 94 Resp 8 27 11 B/P (MAP) 91/57 (68) 91/57 99/58 (72) Pulse Ox 96 100 95 O2 Delivery Nasal Cannula Nasal Cannula Nasal Cannula O2 Flow Rate 2.00 2.00 2.00 07/29/20 07/29/20 07/29/20 07/29/20 07:38 08:00 08:00 10:00 Temp 37.8 Pulse 86 93 Resp 27 28 B/P (MAP) 88/50 (63) 109/56 (73) Pulse Ox 96 96 98 O2 Delivery Nasal Cannula Room Air Nasal Cannula O2 Flow Rate 2.00 2.00 07/29/20 07/29/20 07/29/20 07/29/20 11:00 11:08 11:38 12:00 Temp 37.2 Pulse 89 B/P (MAP) 97/80 (86) Pulse Ox 100 96 O2 Delivery Nasal Cannula Room Air O2 Flow Rate 2.00 07/29/20 07/29/20 12:00 13:24 Temp 38.0 Pulse 89 Resp 28 B/P (MAP) 155/135 (142) Pulse Ox 91 O2 Delivery Nasal Cannula O2 Flow Rate 2.00 07/29/20 00:00 Intake Total 665 ml Output Total 1400 ml Balance -735 ml Constitutional: No AAO x 3; well-developed, well-nourished, other (confused, uncooperative ) Respiratory: chest expansion is symmetric, chest is bilaterally symmetric, other (tachypnea) Cardiovascular: No JVD; tachycardia Gastrointestional: soft, round, audible bowel sounds Extremities: no lower extremity edema bilateral Neurologic/Psychiatric: other (moving all etremities) Skin: No rash on exposed areas, No ulcerations on exposed areas Results/Procedures: Labs Laboratory Tests 07/28/20 15:40: Sodium Level 134L, Potassium Level 4.0, Chloride Level 105, Carbon Dioxide Level 20L, Anion Gap 9, Blood Urea Nitrogen 35H, Creatinine 1.29, Estimat Glomerular Filtration Rate 59, BUN/Creatinine Ratio 27, Glucose Level 135H, Calcium Level 8.0L, Vancomycin Level Trough 11.4 07/28/20 17:27: Glucometer 101 07/28/20 18:26: Glucometer 132H 07/28/20 19:26: Glucometer 208H 07/28/20 23:01: Glucometer 206H 07/29/20 04:25: Glucometer 256H, White Blood Count 11.4H, Red Blood Count 2.90L, Hemoglobin 8.0L , Hematocrit 24L, Mean Corpuscular Volume 83, Mean Corpuscular Hemoglobin 28, Mean Corpuscular Hemoglobin Concent 33, Red Cell Distribution Width 13.6, Platelet Count 275, Mean Platelet Volume 11.3, Immature Granulocyte % (Auto) 5, Neutrophils (%) (Auto) 82H, Lymphocytes (%) (Auto) 7L, Monocytes (%) (Auto) 5, Eosinophils (%) (Auto) 1, Basophils (%) (Auto) 0, Neutrophils # (Auto) 9.3H, Lymphocytes # (Auto) 0.8L, Monocytes # (Auto) 0.5, Eosinophils # (Auto) 0.1, Basophils # (Auto) 0.0, Immature Granulocyte # (Auto) 0.6H, Sodium Level 133L, Potassium Level 4.9, Chloride Level 104, Carbon Dioxide Level 19L, Anion Gap 10, Blood Urea Nitrogen 38H, Creatinine 1.48H, Estimat Glomerular Filtration Rate 50, BUN/Creatinine Ratio 26, Glucose Level 239H, Calcium Level 7.5L, Phosphorus Level 1.9L, Magnesium Level 1.7, Ammonia 33H, Beta-Hydroxybutyrate (Chem panel) 0.09, Thyroid Stimulating Hormone (TSH) 1.04, Free Thyroxine 0.79 07/29/20 05:16: Glucometer 299H 07/29/20 11:10: Glucometer 289H 07/29/20 12:15: CSF Tube Number 4, CSF Appearance CLEAR, CSF Color COLORLESS, CSF WBC 2, CSF RBC 4H, CSF Lymphocytes 35, CSF Mononuclear WBCs 17, CSF Polynuclear WBCs 48, CSF Glucose 105H Microbiology 07/29/20 Gram Stain - Final, Resulted 07/29/20 CSF Culture, Resulted Pending 07/28/20 Blood Culture - Preliminary, Resulted No growth 07/27/20 MRSA Screen - Final, Complete MRSA not isolated 07/26/20 Urine Culture - Final, Complete NO GROWTH A/P: Assessment: Sepsis of undetermined etiology, managed by the Hospitalist bimal MRSA in cultures - source unknown Encephalopathy AMS Echo of 07/28/20: LVEF 70-75%, normal PASP H/O Methamphetamine abuse Sinus tachycardia likely secondary to sepsis and/or withdrawal DM - DKA (resolved) Influenza B (+)\ WAN-3 Anemia of undetermined etiology - management per Medical services Plan: MRSA confirmed in cultures, source undetermined - management per medical/ICU services If no other source is found, then REX when stable and able to provide consent IV BB to treat HR and BP Monitor lab Replace electrolytes as indicated I discussed his case with Dr Steinberg on the phone. Transfer is planned to a tertiary care facility because he continues to exhibit encephalopathy despite clearing his bacteremia MUNIR CASTANEDA MD FACP FAC CCDS Jul 29, 2020 15:41
[2020-07-29] MEDS: VANCOMYCIN 1250 MG/NS 250 ML IVPB IV SCH ×2 (18:29)
[2020-07-29] MEDS: D5 1/2 NS 1000 ML IV SOLUTION 1,000 ML IV SCH (19:42)
--- NOTE | 2020-07-29 22:18 | NUR ---
Patient hypotensive, current BP 83/55 despite decreasing Precedex. Call placed to E ICU at this time. Updated RN on patient condition.
[2020-07-29] MEDS ORDERED: NS IV 1000 ML 1,000 ML ONE (22:27)
[2020-07-29] MEDS ORDERED: NS IV 1000 ML 1,000 ML IV SCH (22:30)
[2020-07-30] VITALS (24 sets, daily range): BP systolic 76–126; BP diastolic 44–80
[2020-07-30] MEDS ORDERED: NS IV 1000 ML 1,000 ML IV SCH (00:30)
[2020-07-30] MEDS: morphine INJ 4 MG/ML 1 ML (VIAL/SYRINGE) IVP PRN ×2 (00:42→14:48)
[2020-07-30] MEDS: DexMEDEtomidine PRE MIX 100 ML IV PRN ×6 (03:10→20:47)
[2020-07-30 03:16] LABS: BASOPHILS # (AUTO) 0.1 10^3/uL (0.0-0.1); BASOPHILS % (AUTO) 0 % (0-10); EOSINOPHILS # (AUTO) 0.2 10^3/uL (0.0-0.3); EOSINOPHILS % (AUTO) 1 % (0-10); HEMATOCRIT 26 % (40-54); HEMOGLOBIN 8.5 g/dL (13.3-17.7); LYMPHOCYTES # (AUTO) 1.3 10^3/uL (1.0-4.0); LYMPHOCYTES % (AUTO) 8 % (12-44); MEAN CORPUSCULAR HEMOGLOBIN 27 pg (25-34); MEAN CORPUSCULAR HGB CONC 33 g/dL (32-36); MEAN CORPUSCULAR VOLUME 83 fL (80-99); MEAN PLATELET VOLUME 11.1 fL (9.0-12.2); MONOCYTES # (AUTO) 0.8 10^3/uL (0.0-1.0); MONOCYTES % (AUTO) 5 % (0-12); NEUTROPHILS # (AUTO) 13.2 10^3/uL (1.8-7.8); NEUTROPHILS % (AUTO) 79 % (42-75); PLATELET COUNT 321 10^3/uL (130-400); WHITE BLOOD COUNT 16.7 10^3/uL (4.3-11.0)
[2020-07-30 03:25] LABS: CALCIUM 7.4 MG/DL (8.5-10.1)
[2020-07-30 03:29] LABS: PHOSPHORUS 2.5 MG/DL (2.3-4.7)
[2020-07-30 03:30] LABS: CREATININE SERUM 1.36 MG/DL (0.60-1.30)
[2020-07-30 03:32] LABS: MAGNESIUM 1.7 MG/DL (1.6-2.4)
[2020-07-30] MEDS: meTOprolol 5 MG/5 ML (LOPRESSOR) VIAL IV SCH ×6 (04:12→23:16)
--- NOTE | 2020-07-30 04:26 | Pulmonary Progress Note ---
Subjective Time Seen by a Provider: 04:21 Subjective/Events-last exam Pt is very lethargic. Does not follow commands. He does try to climb out of bed. Pt does move all extremities. Sepsis Event Evaluation Height, Weight, BMI Height: '" Weight: lbs. oz. kg; 28.50 BMI Method: Focused Exam Lactate Level 07/27/20 12:52: Lactic Acid Level 2.68*H 07/28/20 00:28: Lactic Acid Level 2.17*H 07/28/20 03:47: Lactic Acid Level 1.65 Time of Focused Exam: 00:14 Exam Exam Vital Signs Date Time Temp Pulse Resp B/P (MAP) Pulse Ox O2 Delivery O2 Flow Rate FiO2 07/30/20 04:00 94 Nasal Cannula 2.00 07/30/20 03:30 37.0 Nasal Cannula 2.00 07/30/20 03:10 89 19 112/64 98 Nasal Cannula 2.00 07/30/20 00:00 85 22 104/80 (88) 96 Nasal Cannula 2.00 07/29/20 23:16 36.7 Nasal Cannula 2.00 07/29/20 23:15 98 Nasal Cannula 2.00 07/29/20 23:13 88/57 07/29/20 23:00 70 25 88/57 (67) 100 Nasal Cannula 2.00 07/29/20 22:00 75 28 83/55 (64) 96 Nasal Cannula 2.00 07/29/20 21:20 Nasal Cannula 2.00 07/29/20 21:18 80 21 91/63 (72) 92 Room Air 07/29/20 20:26 81 90/64 (73) 91 Room Air 07/29/20 19:45 100 Room Air 07/29/20 19:42 81 17 101/52 98 Room Air 07/29/20 19:00 80 26 101/52 (68) 100 Room Air 07/29/20 19:00 80 07/29/20 19:00 36.9 83 19 101/52 (68) 100 Room Air 07/29/20 18:00 81 41 111/67 (82) 99 Nasal Cannula 2.00 07/29/20 17:00 88 113/68 (83) 100 Nasal Cannula 2.00 07/29/20 16:24 89 105/69 07/29/20 16:00 96 Room Air 07/29/20 16:00 87 6 105/69 (81) 100 Nasal Cannula 2.00 07/29/20 15:00 88 25 93/64 (74) 100 Nasal Cannula 2.00 07/29/20 14:00 121 28 111/69 (83) 98 Nasal Cannula 2.00 07/29/20 13:24 38.0 07/29/20 13:00 88 23 117/59 (78) 100 Nasal Cannula 2.00 07/29/20 12:46 88 07/29/20 12:00 89 28 155/135 (142) 91 Nasal Cannula 2.00 07/29/20 12:00 96 Room Air 07/29/20 11:38 89 07/29/20 11:08 37.2 07/29/20 11:00 97/80 (86) 100 Nasal Cannula 2.00 07/29/20 10:00 93 28 109/56 (73) 98 Nasal Cannula 2.00 07/29/20 08:00 96 Room Air 07/29/20 08:00 86 27 88/50 (63) 96 Nasal Cannula 2.00 07/29/20 07:38 37.8 07/29/20 07:00 94 11 99/58 (72) 95 Nasal Cannula 2.00 07/29/20 06:52 93 07/29/20 06:27 92 27 91/57 100 Nasal Cannula 2.00 07/29/20 06:05 87 8 91/57 (68) 96 Nasal Cannula 2.00 07/29/20 05:00 85 24 88/48 (61) 100 Nasal Cannula 2.00 I & O 07/30/20 07:00 Intake Total 2562.5 ml Output Total 1450 ml Balance 1112.5 ml Height & Weight Height: '" Weight: lbs. oz. kg; 28.50 BMI Method: General Appearance: Anxious, Moderate Distress HEENT: Other (pinpoint pupils bilaterally) Respiratory: Lungs Clear, No Respiratory Distress Cardiovascular: Regular Rate, Rhythm, No Murmur Capillary Refill: Less Than 3 Seconds Peripheral Pulses: 2+ Dorsalis Pedis (R), 2+ Left Dors-Pedis (L), 2+ Radial Pulses (R), 2+ Radial Pulses (L) Gastrointestinal: soft, tenderness (with deep palpation, but not always reproducible), hernia (small umbilical hernia) Extremity: No Calf Tenderness, No Pedal Edema Neurologic/Psychiatric: Alert (opens eyes to verbal stimuli, otherwise does not follow commands or interact appropriately) Skin: Normal Color Results Lab Laboratory Tests 07/28/20 08:30 07/28/20 13:00 07/28/20 15:40 07/29/20 04:25 07/30/20 03:00 Assessment/Plan Assessment/Plan DKA -DKA protocol -Continue to monitor Hypotension - improved -s/p liter bolus of LR Methamphetamine use -education Lethargy - CT of head - No acute change -S/p Lumbar puncture - neg -S/p HIDA scan - negative -Hold Ativan -Continue PRN morphine and Geodon for now -Precedex PRN -Check ABG Bacteremia -May need REX -Cardiology is following Abdominal pain - -Check amylase lipase -Check CT of Abd without contrast Influenza B + -COVID is negative -Tamiflu Anemia -Monitor -Protonix MELISA VERA DO Jul 30, 2020 04:26
[2020-07-30] MEDS: VANCOMYCIN 1250 MG/NS 250 ML IVPB IV SCH ×4 (04:39→18:15)
[2020-07-30] MEDS: inSUlin ASPART (NovoLOG) 1 UNIT/0.01 ML (CHARGE PER UNIT) SC SCH ×3 (04:39→18:15)
[2020-07-30] MEDS: D5 1/2 NS 1000 ML IV SOLUTION 1,000 ML IV SCH ×2 (05:21→16:46)
--- NOTE | 2020-07-30 07:56 | Progress Note - Surgery ---
JACI ADEN MED STUDENT 07/30/20 0756: Subjective Time Seen by a Provider: 07:30 Subjective/Events-last exam pt is still in mild stress today, but he is able to communicate some. The pts main complain is he 'wants water' he repeated this complaint multiple times. When asked if hes having any abd pain he said 'no'. A full ROS was still too challenging to obtain due to pt AMS. Abd exam did not elicit any pain. Review of Systems ROS COULD NOT BE REVIEWED WITH PT. Focused Exam Lactate Level 07/27/20 12:52: Lactic Acid Level 2.68*H 07/28/20 00:28: Lactic Acid Level 2.17*H 07/28/20 03:47: Lactic Acid Level 1.65 Time of Focused Exam: 00:14 Objective Exam Vital Signs Date Time Temp Pulse Resp B/P (MAP) Pulse Ox O2 Delivery O2 Flow Rate FiO2 07/30/20 06:00 84 28 93/50 (64) 98 Nasal Cannula 2.00 07/30/20 05:23 78 23 84/64 (71) 94 Nasal Cannula 2.00 07/30/20 05:22 80 16 84/61 95 Nasal Cannula 2.00 07/30/20 04:37 90 115/67 (83) 95 Nasal Cannula 2.00 07/30/20 04:00 94 Nasal Cannula 2.00 07/30/20 03:30 37.0 Nasal Cannula 2.00 07/30/20 03:10 89 19 112/64 98 Nasal Cannula 2.00 07/30/20 03:00 101 35 112/64 (80) 96 Nasal Cannula 2.00 07/30/20 02:00 94 113/80 (91) 94 Nasal Cannula 2.00 07/30/20 01:00 91 07/30/20 01:00 91 23 110/77 (88) 96 Nasal Cannula 2.00 07/30/20 00:00 85 22 104/80 (88) 96 Nasal Cannula 2.00 07/29/20 23:16 36.7 Nasal Cannula 2.00 07/29/20 23:15 98 Nasal Cannula 2.00 07/29/20 23:13 88/57 07/29/20 23:00 70 25 88/57 (67) 100 Nasal Cannula 2.00 07/29/20 22:00 75 28 83/55 (64) 96 Nasal Cannula 2.00 07/29/20 21:20 Nasal Cannula 2.00 07/29/20 21:18 80 21 91/63 (72) 92 Room Air 07/29/20 20:26 81 90/64 (73) 91 Room Air 07/29/20 19:45 100 Room Air 07/29/20 19:42 81 17 101/52 98 Room Air 07/29/20 19:00 80 26 101/52 (68) 100 Room Air 07/29/20 19:00 80 07/29/20 19:00 36.9 83 19 101/52 (68) 100 Room Air 07/29/20 18:00 81 41 111/67 (82) 99 Nasal Cannula 2.00 07/29/20 17:00 88 113/68 (83) 100 Nasal Cannula 2.00 07/29/20 16:24 89 105/69 07/29/20 16:00 96 Room Air 07/29/20 16:00 87 6 105/69 (81) 100 Nasal Cannula 2.00 07/29/20 15:00 88 25 93/64 (74) 100 Nasal Cannula 2.00 07/29/20 14:00 121 28 111/69 (83) 98 Nasal Cannula 2.00 07/29/20 13:24 38.0 07/29/20 13:00 88 23 117/59 (78) 100 Nasal Cannula 2.00 07/29/20 12:46 88 07/29/20 12:00 89 28 155/135 (142) 91 Nasal Cannula 2.00 07/29/20 12:00 96 Room Air 07/29/20 11:38 89 07/29/20 11:08 37.2 07/29/20 11:00 97/80 (86) 100 Nasal Cannula 2.00 07/29/20 10:00 93 28 109/56 (73) 98 Nasal Cannula 2.00 07/29/20 08:00 96 Room Air 07/29/20 08:00 86 27 88/50 (63) 96 Nasal Cannula 2.00 I & O 07/30/20 07:00 Intake Total 3925.0 ml Output Total 2050 ml Balance 1875.0 ml Capillary Refill : Less Than 3 Seconds General Appearance: Anxious, Moderate Distress Respiratory: Lungs Clear, Normal Breath Sounds, No Respiratory Distress Cardiovascular: Regular Rate, Rhythm, No Edema, No Murmur Peripheral Pulses: 2+ Radial Pulses (R), 2+ Radial Pulses (L) Gastrointestinal: normal bowel sounds, non tender, soft, hernia (small umbilical hernia) Extremity: Non Tender, No Calf Tenderness, No Pedal Edema, Slow Capillary Refill (3+ seconds cap refill ) Neurologic/Psychiatric: Alert (opens eyes to verbal stimuli, pt is able to communicate some concerns verbally) Skin: Normal Color Results Lab Laboratory Tests 07/29/20 11:10: Glucometer 289H 07/29/20 12:15: CSF Tube Number 4, CSF Appearance CLEAR, CSF Color COLORLESS, CSF WBC 2, CSF RBC 4H, CSF Lymphocytes 35, CSF Mononuclear WBCs 17, CSF Polynuclear WBCs 48, CSF Glucose 105H 07/29/20 17:35: Glucometer 286H 07/29/20 23:14: Glucometer 308H 07/30/20 03:00: White Blood Count 16.7H, Red Blood Count 3.10L, Hemoglobin 8.5L, Hematocrit 26L, Mean Corpuscular Volume 83, Mean Corpuscular Hemoglobin 27, Mean Corpuscular Hemoglobin Concent 33, Red Cell Distribution Width 13.9, Platelet Count 321, Mean Platelet Volume 11.1, Immature Granulocyte % (Auto) 7, Neutrophils (%) (Auto) 79H, Lymphocytes (%) (Auto) 8L, Monocytes (%) (Auto) 5, Eosinophils (%) (Auto) 1, Basophils (%) (Auto) 0, Neutrophils # (Auto) 13.2H, Lymphocytes # (Auto) 1.3, Monocytes # (Auto) 0.8, Eosinophils # (Auto) 0.2, Basophils # (Auto) 0.1, Immature Granulocyte # (Auto) 1.2H, Sodium Level 137, Potassium Level 4.0, Chloride Level 109H, Carbon Dioxide Level 18L, Anion Gap 10, Blood Urea Nitrogen 44H, Creatinine 1.36H, Estimat Glomerular Filtration Rate 55, BUN/Creatinine Ratio 32, Glucose Level 152H, Calcium Level 7.4L, Phosphorus Level 2.5, Magnesium Level 1.7, Beta-Hydroxybutyrate (Chem panel) 0.05 Microbiology 07/29/20 Gram Stain - Final, Resulted 07/29/20 CSF Culture, Resulted Pending 07/28/20 Blood Culture - Preliminary, Resulted No growth 07/27/20 MRSA Screen - Final, Complete MRSA not isolated 07/26/20 Urine Culture - Final, Complete NO GROWTH Assessment/Plan Assessment/Plan Admission Diagonsis DKA, sepsis & methamphetamine abuse. Assessment/Plan Acute Abd Pain: this does not appear to be a primary concern of the pt at this time. 07/29 HIDA scan was neg for cholecystitis. Consider no further imaging or exploratory GI intervention at this this time. DKA: continue to follow protocol. resolved. Sepsis: 07/26 blood culture showed Staph Aureus. WBC count increased from 11.4 to 16.7 today. LP 07/29 showed no bacteria or WBC on gram stain, culture still pending, CSF glucose level was elevated. Consider REX - see cardiology note. Acute Anemia: likely dilutional in nature, Hgb rebounded to 8.5 today. Transfuse if Hgb drops below 7.0 Clinical Quality Measures DVT/VTE Risk/Contraindication: Risk Factor Score Per Nursin RFS Level Per Nursing on Admit: 4+=Very High CISCO ROMERO DO 07/30/20 0846: Subjective Time Seen by a Provider: 08:31 Subjective/Events-last exam Pt seen and examined, able to answer some questions today. Denies abdominal pain and wants to drink. Pt new the year and president and that he was in hospital. Review of Systems Pulmonary: No Dyspnea, No Cough Gastrointestinal: No: Nausea, Vomiting, Abdominal Pain Objective Exam General Appearance: No Apparent Distress, Anxious Respiratory: Lungs Clear, Normal Breath Sounds, No Respiratory Distress Cardiovascular: Regular Rate, Rhythm, No Murmur Gastrointestinal: non tender, soft, hernia (small umbilical hernia) Neurologic/Psychiatric: Alert (opens eyes to verbal stimuli, pt is able to communicate some concerns verbally), Oriented x3 Assessment/Plan Assessment/Plan Assessment/Plan Encephalopathy - seems to be fading? Electrolyte Abn - replace as needed Abd pain - resolved DKA - controlled Bacteremia - recent blood clx negative Would start liquids and D/C Mane. Supervisory-Addendum Brief Verification & Attestation Participated in pt care: history, MDM, physical Personally performed: exam, history, MDM Care discussed with: Medical Student Procedures: n/a Verification and Attestation of Medical Student E/M Service A medical student performed and documented this service. I then reviewed and verified all information documented by the medical student and made modifications to such information, when appropriate. I personally performed a physical exam, medical decision making and then discussed any differences between the notes and made revisions as necessary to create one note. Cisco Romero , 07/30/20 , 08:45 JACI ADEN MED STUDENT Jul 30, 2020 07:56 CISCO ROMERO DO Jul 30, 2020 08:46
--- NOTE | 2020-07-30 08:37 | Progress Note - Hospitalist ---
Subjective HPI/CC On Admission Date Seen by Provider: Jul 30, 2020 Time Seen by Provider: 08:00 Dino Moreau is a 50-year-old male with H insulin-dependent diabetes mellitus, methamphetamine abuse, who presented with altered mental status. He had reportedly been out of his insulin according to his parents. He had been too weak to walk and was incontinent of urine.in the emergency room, he was found to be in diabetic ketoacidosis. At the time of my exam, he is lethargic, uncooperative, and unable to provide any history. Subjective/Events-last exam patient somewhat agitated and confused with speaking in full sentences but not answering questions wishing to go home but unable to tell me where he was. He did not appear to be in pain but could not answer my questions in this regard. Focused Exam Lactate Level 07/28/20 00:28: Lactic Acid Level 2.17*H 07/28/20 03:47: Lactic Acid Level 1.65 Time of Focused Exam: 00:14 Objective Exam Vital Signs Vital Signs Date Time Temp Pulse Resp B/P (MAP) Pulse Ox O2 Delivery O2 Flow Rate FiO2 07/30/20 14:00 71 32 112/58 (74) 95 07/30/20 12:55 Room Air 07/30/20 12:00 36.4 07/30/20 08:00 2.00 Capillary Refill : Less Than 3 Seconds General Appearance: Other (confused with mild agitation) Respiratory: Chest Non Tender, Lungs Clear, Normal Breath Sounds, No Accessory Muscle Use, No Respiratory Distress Cardiovascular: Regular Rate, Rhythm, No Edema, No Gallop, No JVD, No Murmur, Normal Peripheral Pulses Results/Procedures Lab Laboratory Tests 07/30/20 03:00 Patient resulted labs reviewed. Imaging: Reviewed Imaging Report Assessment/Plan Assessment and Plan Assess & Plan/Chief Complaint A/P 1. Methamphetamine abuse with delirium which may be multi-factorial. The patient has been a little more responsive with clear speech although still quite confused. No focal neurologic deficits noted. 2. Blood cultures positive for methicillin-resistant staph no obvious evidence for infection. Transthoracic echo revealing no valvular abnormalities continue vancomycin. It is possible that this is contributing to delirium. Patient is afebrile with no evidence for COATING MIXER metastasis and negative lumbar puncture for meningitis. Continue to monitor consideration for transesophageal echo per cardiology. 3. Influenza B positive which may also be contributing to delirium. 4. Diabetes mellitus trending lower currently on sliding scale bolus and basal insulin will increase basal insulin. Clinical Quality Measures DVT/VTE Risk/Contraindication: Risk Factor Score Per Nursin RFS Level Per Nursing on Admit: 4+=Very High KHRIS TINEO MD Jul 30, 2020 08:37
[2020-07-30] MEDS ORDERED: ZIPRASIDONE 20 MG INJ (GEODON) VIAL IM ONE ×2 (09:09→15:31)
[2020-07-30] MEDS ORDERED: WATER (STERILE) FOR INJECTION 10 ML ONE ×2 (09:09→15:31)
[2020-07-30] MEDS: ZIPRASIDONE INJECTION 20 MG in WATER (STERILE) FOR INJECTION 1.2 ML IM PRN ×2 (09:30→15:46)
[2020-07-30] MEDS: PANTOPRAZOLE 40 MG (PROTONIX) VIAL IV SCH (09:32)
[2020-07-30] MEDS: risperiDONE 1 MG (RisperDAL) TAB PO SCH ×2 (09:39→20:19)
[2020-07-30] MEDS: OSELTAMIVIR 75 MG (TAMIFLU) CAPSULE PO SCH ×2 (09:40→20:19)
--- NOTE | 2020-07-30 12:25 | Cardiology Progress Note ---
Subjective Date Seen by Provider: Jul 30, 2020 Time Seen by Provider: 12:22 Subjective/Events-last exam Patient is asleep in bed, does not awaken to answer questions. NAD. Focused Exam Lactate Level 07/28/20 00:28: Lactic Acid Level 2.17*H 07/28/20 03:47: Lactic Acid Level 1.65 Time of Focused Exam: 00:14 Objective-Cardiology Exam Last Set of Vital Signs Vital Signs 07/30/20 07/30/20 07/30/20 08:00 12:55 14:00 Pulse 71 Resp 32 B/P (MAP) 112/58 (74) Pulse Ox 95 O2 Delivery Room Air O2 Flow Rate 2.00 Capillary Refill : Less Than 3 Seconds I&O Intake and Output 07/30/20 00:00 Intake Total 3662.5 ml Output Total 1450 ml Balance 2212.5 ml Intake Oral 0 ml IV Total 3662.5 ml Output Urine Total 1450 ml General: No Acute Distress HEENT: Atraumatic Neck: Supple, No JVD, No Thyromegaly Lungs: Clear to Auscultation, Normal Air Movement Heart: Regular Rate, Normal S1, Normal S2, No Murmurs Abdomen: Soft Extremities: No Edema Skin: No Rashes, No Significant Lesion Results Lab Laboratory Tests 07/30/20 03:00 A/P-Cardiology Admission Diagnosis Sepsis MRSA Encephalopathy Sinus tachycardia Assessment/Plan Sepsis of undetermined etiology, managed by the Hospitalist bimal MRSA in cultures - source unknown Encephalopathy AMS Echo of 07/28/20: LVEF 70-75%, normal PASP H/O Methamphetamine abuse Sinus tachycardia likely secondary to sepsis and/or withdrawal, heart rate under good control. DM - DKA (resolved) Influenza B (+)\ WAN-3 Anemia of undetermined etiology - management per Medical services Patient was seen and evaluated with Halie, examination performed, management plan was discussed, agree with the current scribed note, I made few changes to the note using Italic font Patient is laying down in bed, arrangements being made for transfer to a tertiary care center Clinical Quality Measures DVT/VTE Risk/Contraindication: Risk Factor Score Per Nursin RFS Level Per Nursing on Admit: 4+=Very High HALIE GARCIA Jul 30, 2020 12:25 ASHU MURPHY MD Jul 30, 2020 15:39
--- NOTE | 2020-07-30 15:48 | NUR ---
I AM UNABLE TO COMMUNICATE WITH THE PT AT THIS TIME- I DID REACH OUT TO PT'S PARENTS BUT UNFORTUNATELY THEY WERE NOT ABLE TO TELL ME HIS MEDICATIONS. PARENTS REQUESTED I REACH OUT TO RANDI TAPIA TO GET A MEDICATION LIST. I CALLED [facility] OFFICE AND HAD TO LEAVE A MESSAGE. I WILL UPDATE THE MED REC AND NOTES NEEDED AFTER I SPEAK WITH THE OFFICE Addendum: 07/31/20 at 1315 by FRANKLIN BOLDEN [facility] I DID GET A MEDICATION LIST FROM [facility]I MCGUIRE OFFICE, WENT THRU THE EXT MED HISTORY AND CALLED [facility] TO COMPLETE THE MED REC. THE MED REC HAS BEEN ENTERED TO THE BEST OF MY ABILITY DUE TO ME NOT BEING ABOUT TO SPEAK WITH THE PT ON THE MEDICATION LIST FROM HIS PCP IT LISTS NOVOLOG HOWEVER IT IS ON "HOLD" AT [facility] AND HAS NEVER BEEN FILLED SILDENAFIL 20MG: THIS IS ON THE MEDICATION LIST AND WAS LAST FILLED 07-17-2020 #30 AT [facility] OT MEDS: NONE LISTED
--- NOTE | 2020-07-30 16:04 | NUR ---
CM/SS continues to follow patient for discharge planning. CM/SS went to visit patient. Patient was turned on his stomach rocking back and forth in the bed. CM/SS is unsure if patient will transfer to a different facility based on possible neurological needs. CM/SS will follow for plan of care.
[2020-07-30] MEDS: LORazepam INJ 2 MG/ML (ATIVAN) VIAL IVP PRN ×2 (17:05→22:18)
[2020-07-31] VITALS (22 sets, daily range): BP systolic 83–144; BP diastolic 41–78
[2020-07-31] MEDS: inSUlin ASPART (NovoLOG) 1 UNIT/0.01 ML (CHARGE PER UNIT) SC SCH ×4 (00:44→18:19)
[2020-07-31] MEDS: DexMEDEtomidine PRE MIX 100 ML IV PRN ×7 (01:21→22:03)
[2020-07-31] MEDS: meTOprolol 5 MG/5 ML (LOPRESSOR) VIAL IV SCH ×5 (03:11→19:23)
[2020-07-31] MEDS: D5 1/2 NS 1000 ML IV SOLUTION 1,000 ML IV SCH ×2 (03:13→17:26)
[2020-07-31] MEDS: LORazepam INJ 2 MG/ML (ATIVAN) VIAL IVP PRN ×5 (03:14→21:13)
[2020-07-31] MEDS ORDERED: TROUGH ORDER-PHARMACY XX ONE (04:00)
[2020-07-31 04:20] LABS: BASOPHILS # (AUTO) 0.1 10^3/uL (0.0-0.1); BASOPHILS % (AUTO) 1 % (0-10); EOSINOPHILS # (AUTO) 0.3 10^3/uL (0.0-0.3); EOSINOPHILS % (AUTO) 1 % (0-10); HEMATOCRIT 28 % (40-54); HEMOGLOBIN 9.2 g/dL (13.3-17.7); LYMPHOCYTES # (AUTO) 1.3 10^3/uL (1.0-4.0); LYMPHOCYTES % (AUTO) 7 % (12-44); MEAN CORPUSCULAR HEMOGLOBIN 27 pg (25-34); MEAN CORPUSCULAR HGB CONC 33 g/dL (32-36); MEAN CORPUSCULAR VOLUME 83 fL (80-99); MONOCYTES # (AUTO) 0.8 10^3/uL (0.0-1.0); MONOCYTES % (AUTO) 4 % (0-12); NEUTROPHILS # (AUTO) 14.7 10^3/uL (1.8-7.8); NEUTROPHILS % (AUTO) 80 % (42-75); PLATELET COUNT 365 10^3/uL (130-400); WHITE BLOOD COUNT 18.3 10^3/uL (4.3-11.0)
[2020-07-31 04:56] LABS: VANCOMYCIN,TROUGH 30.8 UG/ML (10.0-20.0)
[2020-07-31 05:04] LABS: CHLORIDE 114 MMOL/L (98-107); SODIUM 141 MMOL/L (135-145)
[2020-07-31 05:05] LABS: CALCIUM 7.5 MG/DL (8.5-10.1)
[2020-07-31 05:06] LABS: GLUCOSE 90 MG/DL (70-105)
[2020-07-31 05:07] LABS: CARBON DIOXIDE 16 MMOL/L (21-32)
[2020-07-31 05:10] LABS: CREATININE SERUM 1.23 MG/DL (0.60-1.30)
[2020-07-31 05:11] LABS: BUN/CREATININE RATIO 37
[2020-07-31 05:12] LABS: MAGNESIUM 1.7 MG/DL (1.6-2.4)
[2020-07-31] MEDS: VANCOMYCIN 1250 MG/NS 250 ML IVPB IV SCH ×2 (05:13)
[2020-07-31] MEDS: POTASSIUM CL 10MEQ/50ML IVPB 50 ML IV SCH (05:15)
[2020-07-31] MEDS: MAGNESIUM 1 GM/100 ML IVPB 100 ML IV SCH ×3 (05:15→08:36)
[2020-07-31] MEDS: KCL 20 MEQ TAB (K-DUR) PO SCH (05:15)
[2020-07-31 05:30] LABS: GFR ESTIMATED > 60
[2020-07-31] MEDS: PANTOPRAZOLE 40 MG (PROTONIX) VIAL IV SCH (07:49)
[2020-07-31] MEDS ORDERED: KETAMINE HCL 100 MG/ML 5 ML VIAL IV ONE (08:00)
--- NOTE | 2020-07-31 08:22 | NUR ---
PTD VANCOMYCIN LABS: SCR 1.23 (DOWN FROM 2.39) VANCOMYCIN TROUGH 30.8 (PRIOR TO 4TH DOSE OF NEW DOSING SCHEDULE) CULTURES: MRSA BLOOD A/P: SUPERTHERAPEUTIC TROUGH LEVEL, WE WILL HOLD TODAYS VANCOMYCIN DOSES AND ORDER A NEW LEVEL ON 08/01 @ 0400, WE WILL CALCULATE THE DRUG CLEARANCE AND ADJUST DOSE/FREQUENCY. CONTINUE TO MONITOR SCR/RENAL FXN CLOSEL.
[2020-07-31] MEDS ORDERED: KETAMINE IV NR (08:30)
[2020-07-31] MEDS ORDERED: NS IV NR (08:30)
[2020-07-31] MEDS: risperiDONE 1 MG (RisperDAL) TAB PO SCH ×2 (08:40→20:45)
[2020-07-31] MEDS: OSELTAMIVIR 75 MG (TAMIFLU) CAPSULE PO SCH ×2 (08:40→20:45)
--- NOTE | 2020-07-31 08:44 | Cardiology Progress Note ---
Subjective Date Seen by Provider: Jul 31, 2020 Time Seen by Provider: 08:42 Subjective/Events-last exam Patient is laying down in bed, no change in status Review of Systems General: Other (unable to provide review of systems) Focused Exam Lactate Level 07/31/20 05:55: Lactic Acid Level 1.47 Time of Focused Exam: 00:14 Lactic Acid Level Laboratory Tests Test 07/31/20 05:55 Lactic Acid Level 1.47 MMOL/L (0.50-2.00) Objective-Cardiology Exam Last Set of Vital Signs Vital Signs 07/31/20 07/31/20 07/31/20 07:00 08:00 08:10 Temp 36.4 Pulse 89 Resp 19 B/P (MAP) 103/55 (71) Pulse Ox 95 O2 Delivery Room Air O2 Flow Rate 2.00 Capillary Refill : Less Than 3 Seconds I&O Intake and Output 07/31/20 00:00 Intake Total 1825.0 ml Output Total 2450 ml Balance -625.0 ml Intake Oral 0 ml IV Total 1825.0 ml Output Urine Total 2450 ml General: No Acute Distress HEENT: Atraumatic Neck: Supple, No Thyromegaly Lungs: Normal Air Movement Heart: Regular Rate, No Murmurs Extremities: No Edema Skin: No Rashes, No Significant Lesion Results Lab Laboratory Tests 07/31/20 04:10 A/P-Cardiology Admission Diagnosis Sepsis MRSA Encephalopathy Sinus tachycardia Assessment/Plan Sepsis of undetermined etiology, managed by the Hospitalist bimal MRSA in cultures - source unknown Encephalopathy, change in mental status, history of methamphetamine use and sepsis, still confused and lethargic. Not following commands. Managed by primary care team Echo of 07/28/20: LVEF 70-75%, normal PASP H/O Methamphetamine abuse Sinus tachycardia likely secondary to sepsis and/or withdrawal, artery is better controlled at this time DM - DKA (resolved) Influenza B (+) Status post acute renal failure, improved, continue to monitor renal function Clinical Quality Measures DVT/VTE Risk/Contraindication: Risk Factor Score Per Nursin RFS Level Per Nursing on Admit: 4+=Very High ASHU MURPHY MD Jul 31, 2020 08:44
[2020-07-31] MEDS: morphine INJ 4 MG/ML 1 ML (VIAL/SYRINGE) IVP PRN (10:08)
[2020-07-31] MEDS ORDERED: INSU100I32 SC (13:10)
[2020-07-31] MEDS ORDERED: SILD20TA14 PO (13:10)
[2020-07-31] MEDS ORDERED: METF-399 PO (13:10)
[2020-07-31] MEDS ORDERED: SERT100T8 PO (13:10)
[2020-07-31] MEDS ORDERED: OMEP20CA18 PO (13:10)
[2020-07-31] MEDS ORDERED: GLIM4TAB5 PO (13:10)
[2020-07-31] MEDS ORDERED: LISI10TA2 PO (13:10)
[2020-07-31] MEDS ORDERED: WATER (STERILE) FOR INJECTION 10 ML ONE (16:01)
[2020-07-31] MEDS ORDERED: ZIPRASIDONE 20 MG INJ (GEODON) VIAL IM ONE (16:01)
[2020-07-31] MEDS: ZIPRASIDONE INJECTION 20 MG in WATER (STERILE) FOR INJECTION 1.2 ML IM PRN (16:13)
[2020-08-01] VITALS (24 sets, daily range): BP systolic 86–161; BP diastolic 45–87
[2020-08-01] MEDS: meTOprolol 5 MG/5 ML (LOPRESSOR) VIAL IV SCH ×6 (00:31→19:43)
[2020-08-01] MEDS: DexMEDEtomidine PRE MIX 100 ML IV PRN ×3 (00:33→06:51)
[2020-08-01] MEDS: inSUlin ASPART (NovoLOG) 1 UNIT/0.01 ML (CHARGE PER UNIT) SC SCH ×4 (00:34→17:04)
[2020-08-01] MEDS: LORazepam INJ 2 MG/ML (ATIVAN) VIAL IVP PRN ×2 (01:33→05:19)
[2020-08-01] MEDS: D5 1/2 NS 1000 ML IV SOLUTION 1,000 ML IV SCH ×2 (04:01→11:26)
[2020-08-01 04:22] LABS: BASOPHILS # (AUTO) 0.1 10^3/uL (0.0-0.1); BASOPHILS % (AUTO) 0 % (0-10); EOSINOPHILS # (AUTO) 0.2 10^3/uL (0.0-0.3); EOSINOPHILS % (AUTO) 1 % (0-10); HEMATOCRIT 22 % (40-54); LYMPHOCYTES # (AUTO) 1.6 10^3/uL (1.0-4.0); LYMPHOCYTES % (AUTO) 7 % (12-44); MEAN CORPUSCULAR HEMOGLOBIN 27 pg (25-34); MEAN CORPUSCULAR HGB CONC 32 g/dL (32-36); MEAN CORPUSCULAR VOLUME 85 fL (80-99); MEAN PLATELET VOLUME 11.1 fL (9.0-12.2); MONOCYTES # (AUTO) 1.3 10^3/uL (0.0-1.0); MONOCYTES % (AUTO) 6 % (0-12); NEUTROPHILS # (AUTO) 16.3 10^3/uL (1.8-7.8); NEUTROPHILS % (AUTO) 76 % (42-75); PLATELET COUNT 383 10^3/uL (130-400); WHITE BLOOD COUNT 21.6 10^3/uL (4.3-11.0)
[2020-08-01 06:45] LABS: CALCIUM 7.3 MG/DL (8.5-10.1); CARBON DIOXIDE 17 MMOL/L (21-32); CHLORIDE 116 MMOL/L (98-107); GLUCOSE 66 MG/DL (70-105)
[2020-08-01 06:46] LABS: BUN/CREATININE RATIO 31; CREATININE SERUM 1.15 MG/DL (0.60-1.30); GFR ESTIMATED > 60; MAGNESIUM 1.7 MG/DL (1.6-2.4); PHOSPHORUS 3.8 MG/DL (2.3-4.7); POTASSIUM 3.6 MMOL/L (3.6-5.0); SODIUM 143 MMOL/L (135-145); VANCOMYCIN,TROUGH 14.3 UG/ML (10.0-20.0)
[2020-08-01] MEDS: KCL 20 MEQ TAB (K-DUR) PO SCH (06:57)
[2020-08-01] MEDS: MAGNESIUM 1 GM/100 ML IVPB 100 ML IV SCH (06:57)
[2020-08-01] MEDS: POTASSIUM CL 10MEQ/50ML IVPB 50 ML IV SCH (06:57)
[2020-08-01] MEDS: VANCOMYCIN 1250 MG/NS 250 ML IVPB IV SCH ×2 (08:13)
[2020-08-01] MEDS: risperiDONE 1 MG (RisperDAL) TAB PO SCH ×2 (08:14→19:42)
[2020-08-01] MEDS: PANTOPRAZOLE 40 MG (PROTONIX) VIAL IV SCH (08:14)
[2020-08-01] MEDS: OSELTAMIVIR 75 MG (TAMIFLU) CAPSULE PO SCH ×2 (08:14→19:42)
--- NOTE | 2020-08-01 09:16 | Cardiology Progress Note ---
Subjective Date Seen by Provider: Aug 01, 2020 Time Seen by Provider: 09:15 Subjective/Events-last exam Patient is still obtunded, moaning in bed, not responding appropriately Review of Systems General: Other (unable to provide review of systems) Focused Exam Lactate Level 07/31/20 05:55: Lactic Acid Level 1.47 07/31/20 12:15: Lactic Acid Level 1.18 07/31/20 18:05: Lactic Acid Level 1.14 Time of Focused Exam: 00:14 Objective-Cardiology Exam Last Set of Vital Signs Vital Signs 08/01/20 08/01/20 07:55 08:00 Temp 37.3 Pulse 104 Resp 30 B/P (MAP) 108/61 (77) Pulse Ox 90 O2 Delivery Room Air O2 Flow Rate 2.00 Capillary Refill : Less Than 3 Seconds I&O Intake and Output 08/01/20 00:00 Intake Total 1300 ml Output Total 1800 ml Balance -500 ml Intake Oral 0 ml IV Total 1300 ml Output Urine Total 1800 ml General: No Acute Distress, Other (not following commands) HEENT: Atraumatic Neck: Supple, No Thyromegaly Lungs: Normal Air Movement Heart: Regular Rate, Normal S1, Normal S2, No Murmurs Extremities: No Edema Skin: No Rashes, No Significant Lesion Neuro: Other (not following commands, moving extremities) Psych/Mental Status: Other (not following commands) Results Lab Laboratory Tests 08/01/20 04:00 A/P-Cardiology Admission Diagnosis Sepsis MRSA Encephalopathy Sinus tachycardia Assessment/Plan Sepsis of undetermined etiology, managed by the Hospitalist svce X Leukocytosis, worsening at this time. Managed by primary care team MRSA in cultures - source unknown Encephalopathy, change in mental status, history of methamphetamine use and sepsis, still confused and lethargic. Not following commands, I will give him multiple vitamin with banana bag IV, managed by primary care physician Echo of 07/28/20: LVEF 70-75%, normal PASP H/O Methamphetamine abuse Sinus tachycardia likely secondary to sepsis and/or withdrawal, artery is better controlled at this time DM - DKA (resolved) Influenza B (+) Status post acute renal failure, improved, continue to monitor renal function Clinical Quality Measures DVT/VTE Risk/Contraindication: Risk Factor Score Per Nursin RFS Level Per Nursing on Admit: 4+=Very High ASHU MURPHY MD Aug 01, 2020 09:16
--- NOTE | 2020-08-01 10:42 | Progress Note - Hospitalist ---
Subjective HPI/CC On Admission Date Seen by Provider: Aug 01, 2020 Time Seen by Provider: 10:00 Dino Moreau is a 50-year-old male with PMH insulin-dependent diabetes mellitus, methamphetamine abuse, who presented with altered mental status. He had reportedly been out of his insulin according to his parents. He had been too weak to walk and was incontinent of urine.in the emergency room, he was found to be in diabetic ketoacidosis. At the time of my exam, he is lethargic, uncooperative, and unable to provide any history. Subjective/Events-last exam Patient has not changed Updated mother at her request Mother reports she was "shocked" to find out meth was in his system Patient has a long hx of drug and alcohol use Awaiting [facility] and [facility] bed and acceptance for Neuro expertise Focused Exam Lactate Level 07/31/20 12:15: Lactic Acid Level 1.18 07/31/20 18:05: Lactic Acid Level 1.14 08/01/20 13:15: Lactic Acid Level 1.19 Time of Focused Exam: 00:14 Objective Exam Vital Signs Vital Signs Date Time Temp Pulse Resp B/P (MAP) Pulse Ox O2 Delivery O2 Flow Rate FiO2 08/02/20 04:00 94 Room Air 08/02/20 03:00 116 22 146/69 (94) 08/01/20 23:00 37.2 08/01/20 18:00 2.00 Capillary Refill : Less Than 3 Seconds General Appearance: WD/WN, Anxious, Chronically ill Respiratory: Lungs Clear Cardiovascular: Regular Rate, Rhythm Neurologic/Psychiatric: Disoriented Results/Procedures Lab Laboratory Tests 08/02/20 03:32 Patient resulted labs reviewed. Imaging: Reviewed Imaging Report Assessment/Plan Assessment and Plan Assess & Plan/Chief Complaint Assessment: DKA Shock AMS needs neuro evaluation Meth use Long h/o etohism Plan: Supportive care Inquire with [facility] Dr Jessie aleman on admit: Diabetic ketoacidosis High anion gap metabolic acidosis Hyperkalemia Hyponatremia Blood sugar >1400 on arrival anion gap elevated Sodium 113, corrects to 134 Potassium mildly elevated Started on DKA protocol Insulin GTT IV fluids admitted to ICU Septic shock Gram positive cocci bacteremia Influenza B infection Acute kidney injury Febrile and tachycardic on arrival procalcitonin 72 creatinine 2.39 on arrival, improving this morning, unknown baseline Chest x-ray with no acute abnormalities UA not indicative of UTI Blood cultures positive for gram-positive cocci, likely staph aureus await final culture and sensitivity results Vancomycin and cefepime influenza B+ Tamiflu COVID RODRIGO negative, PCR pending Methamphetamine abuse Possible source of bacteremia recommend cessation Social work consult DVT Prophylaxis: Lovenox Clinical Quality Measures DVT/VTE Risk/Contraindication: Risk Factor Score Per Nursin RFS Level Per Nursing on Admit: 4+=Very High CLAUDY WISE DO Aug 01, 2020 10:42
[2020-08-01] MEDS: THIAMINE INJECTION 100 MG, FOLIC ACID INJECTION 1 MG, VITAMIN MULTI INJECTION 10 ML, MA... IV SCH ×5 (12:05)
--- NOTE | 2020-08-01 12:15 | Progress Note - Hospitalist ---
Subjective HPI/CC On Admission Date Seen by Provider: Jul 31, 2020 Time Seen by Provider: 08:00 Dino Moreau is a 50-year-old male with H insulin-dependent diabetes mellitus, methamphetamine abuse, who presented with altered mental status. He had reportedly been out of his insulin according to his parents. He had been too weak to walk and was incontinent of urine.in the emergency room, he was found to be in diabetic ketoacidosis. At the time of my exam, he is lethargic, uncooperative, and unable to provide any history. Subjective/Events-last exam Pt.still delirious laying in bed pulling sheets off whenever covered. He is moving all extremities but unable to answer any questions. While confused he does not appear to be in pain. Focused Exam Lactate Level 07/31/20 05:55: Lactic Acid Level 1.47 07/31/20 12:15: Lactic Acid Level 1.18 07/31/20 18:05: Lactic Acid Level 1.14 Time of Focused Exam: 00:14 Objective Exam Vital Signs Vital Signs Date Time Temp Pulse Resp B/P (MAP) Pulse Ox O2 Delivery O2 Flow Rate FiO2 08/01/20 11:41 37.4 08/01/20 11:00 115 29 92 Nasal Cannula 2.00 08/01/20 10:00 107/64 (78) Capillary Refill : Less Than 3 Seconds General Appearance: No Apparent Distress, Other (still thrashing around in bed despite Precedex Geodon and Ativan IV) Neck: Supple, Other (patient unable to communicate there does not appear to be any pain on range of motion) Respiratory: Chest Non Tender, Lungs Clear, Normal Breath Sounds, No Accessory Muscle Use, No Respiratory Distress Cardiovascular: Regular Rate, Rhythm, No Edema, No Gallop, No JVD, No Murmur, Normal Peripheral Pulses, Other (difficulty here however over patient noises patient will not remain quiet for any length of time for auscultation) Gastrointestinal: Normal Bowel Sounds, No Organomegaly, No Pulsatile Mass, Non Tender, Soft Extremity: Normal Capillary Refill, Normal Inspection, Normal Range of Motion, No Pedal Edema Skin: Normal Color, Warm/Dry Results/Procedures Lab Laboratory Tests 08/01/20 04:00 Patient resulted labs reviewed. Imaging: Reviewed Imaging Report Assessment/Plan Assessment and Plan Assess & Plan/Chief Complaint A/P 1. Methamphetamine abuse with delirium which may be multi-factorial. Still significant agitation present despite Ativan and Geodon and Precedex will try ketamine IV with dosage per pharmacy recommendation. No focal neurologic deficits noted. white count slowly increasing with no other obvious evidence for infectious source. He is not febrile but considering MRSA, endocarditis despite negative transthoracic echo is in the differential. Neither vital signs or auscultation suggest any evidence for severe valvular dysfunction. No tertiary care beds available in the area still on the waiting list for [facility]. Reportedly his father has some connections at and we are checking into transfer there that previously has been denied. 2. Influenza B positive which may also be contributing to delirium. 3. Diabetes mellitus trending lower currently on sliding scale bolus and basal insulin will increase basal insulin. Critical Care Critically Ill Patient Clinical Quality Measures DVT/VTE Risk/Contraindication: Risk Factor Score Per Nursin RFS Level Per Nursing on Admit: 4+=Very High KHRIS TINEO MD Aug 01, 2020 12:15
[2020-08-01] MEDS ORDERED: PIPERACILLIN/TAZO 4.5 GM/NS 100 ML IV NR ×2 (13:15)
--- NOTE | 2020-08-01 13:19 | NUR ---
CM/SS follow up. CM/SS discussed case with physician. She states the nurse has contacted [facility] and still awaiting a bed for transfer. CM/SS will continue to follow.
--- NOTE | 2020-08-01 13:19 | Diagnostic Imaging Report ---
INDICATION: Chest congestion. TIME OF EXAM: 01:16 p.m. COMPARISON: Comparison is made with prior chest from 07/26/2020. FINDINGS: Heart size is stable. Right upper extremity PICC line has tip overlying the SVC-right atrial junction. Patient has developed some airspace infiltrate in the right upper lobe, suggestive of pneumonia. The remainder of the lung howard are clear. There is no effusion or pneumothorax. IMPRESSION: Development of patchy right upper lobe pneumonia when compared with examination six days earlier. Dictated by: Dictated on workstation # [id number]
--- NOTE | 2020-08-01 14:27 | NUR ---
SCR 1.15 TROUGH LEVEL ON 08/01 @ 0400 14.3 PLAN: CHANGE DOSE TO 1,250MG IV Q 24 HOURS & REPEAT LEVEL ON 08/04 @ 0700.
--- NOTE | 2020-08-01 14:30 | NUR ---
Note pt has dementia. Note pt has been NPO x2d, per chart review. This RD is unsure if enteral nutrition would be the best route, as pt may pull out own NG tube. If plan of care is to provide enteral nutrition, would recommend the following TF: Jevity 1.5 kcal at goal rate of 50ml/hr. Begin at 10ml/hr and increase by 10ml q6h as medically able and as tolerated. Monitor gastric residuals for tolerance. At goal rate, provides 1800 kcal (21 kcal/kg); 77 g Pro (0.9 g Pro/kg); and 912ml free water. Flush with 75ml water q4h for hydration status. With flushes, provides 1362ml free water. Will continue to follow and reassess as pt needs, intake, and status change. Rajat Saeed, MS RD LD [phone]
[2020-08-01] MEDS: PIPERACILLIN/TAZOBACTAM (BULK) 4.5 GM in NS (IVPB) 100 ML IV SCH (17:04)
[2020-08-02] VITALS (24 sets, daily range): BP systolic 94–170; BP diastolic 51–103
[2020-08-02] MEDS: inSUlin ASPART (NovoLOG) 1 UNIT/0.01 ML (CHARGE PER UNIT) SC SCH ×5 (00:24→23:35)
[2020-08-02] MEDS: meTOprolol 5 MG/5 ML (LOPRESSOR) VIAL IV SCH ×7 (00:25→23:35)
[2020-08-02] MEDS: PIPERACILLIN/TAZOBACTAM (BULK) 4.5 GM in NS (IVPB) 100 ML IV SCH ×3 (03:25→19:49)
[2020-08-02 04:12] LABS: CHLORIDE 118 MMOL/L (98-107); POTASSIUM 3.2 MMOL/L (3.6-5.0); SODIUM 146 MMOL/L (135-145)
[2020-08-02 04:13] LABS: CALCIUM 7.2 MG/DL (8.5-10.1); GLUCOSE 136 MG/DL (70-105)
[2020-08-02 04:15] LABS: BASOPHILS # (AUTO) 0.1 10^3/uL (0.0-0.1); BASOPHILS % (AUTO) 0 % (0-10); CARBON DIOXIDE 16 MMOL/L (21-32); EOSINOPHILS # (AUTO) 0.2 10^3/uL (0.0-0.3); EOSINOPHILS % (AUTO) 1 % (0-10); HEMATOCRIT 24 % (40-54); HEMOGLOBIN 7.7 g/dL (13.3-17.7); LYMPHOCYTES # (AUTO) 2.1 10^3/uL (1.0-4.0); LYMPHOCYTES % (AUTO) 7 % (12-44); MEAN CORPUSCULAR HEMOGLOBIN 27 pg (25-34); MEAN CORPUSCULAR HGB CONC 33 g/dL (32-36); MEAN CORPUSCULAR VOLUME 82 fL (80-99); MEAN PLATELET VOLUME 10.5 fL (9.0-12.2); MONOCYTES # (AUTO) 1.3 10^3/uL (0.0-1.0); MONOCYTES % (AUTO) 4 % (0-12); NEUTROPHILS # (AUTO) 23.6 10^3/uL (1.8-7.8); NEUTROPHILS % (AUTO) 80 % (42-75); PLATELET COUNT 511 10^3/uL (130-400); WHITE BLOOD COUNT 29.4 10^3/uL (4.3-11.0)
[2020-08-02 04:17] LABS: CREATININE SERUM 1.19 MG/DL (0.60-1.30); GFR ESTIMATED > 60; PHOSPHORUS 3.5 MG/DL (2.3-4.7)
[2020-08-02 04:18] LABS: BUN/CREATININE RATIO 24
[2020-08-02 04:19] LABS: MAGNESIUM 1.9 MG/DL (1.6-2.4)
[2020-08-02] MEDS: KCL 20 MEQ TAB (K-DUR) PO SCH (04:46)
[2020-08-02] MEDS: MAGNESIUM 1 GM/100 ML IVPB 100 ML IV SCH (04:46)
[2020-08-02] MEDS: POTASSIUM CL 10MEQ/50ML IVPB 50 ML IV SCH ×5 (04:47→08:09)
[2020-08-02] MEDS: PANTOPRAZOLE 40 MG (PROTONIX) VIAL IV SCH (08:04)
[2020-08-02] MEDS: VANCOMYCIN 1250 MG/NS 250 ML IVPB IV SCH ×2 (08:05)
[2020-08-02] MEDS: risperiDONE 1 MG (RisperDAL) TAB PO SCH ×2 (08:09→19:50)
[2020-08-02] MEDS: OSELTAMIVIR 75 MG (TAMIFLU) CAPSULE PO SCH (08:10)
[2020-08-02] MEDS ORDERED: D5 1/2 NS 1000 ML IV SOLUTION 1,000 ML IV ONE (10:00)
[2020-08-02] MEDS: THIAMINE INJECTION 100 MG, FOLIC ACID INJECTION 1 MG, VITAMIN MULTI INJECTION 10 ML, MA... IV SCH ×5 (10:15)
--- NOTE | 2020-08-02 10:44 | Progress Note - Hospitalist ---
Subjective HPI/CC On Admission Date Seen by Provider: Aug 02, 2020 Time Seen by Provider: 09:30 Dino Moreau is a 50-year-old male with H insulin-dependent diabetes mellitus, methamphetamine abuse, who presented with altered mental status. He had reportedly been out of his insulin according to his parents. He had been too weak to walk and was incontinent of urine.in the emergency room, he was found to be in diabetic ketoacidosis. At the time of my exam, he is lethargic, uncooperative, and unable to provide any history. Subjective/Events-last exam patient agitated this morning on evaluation turning head from side to side and moaning would not answer questions. Nurse reports no sedating medication for over 24 hours. Earlier this a.m. when she asked if he knew where he was he stated [employer] I'm assuming [employer]. Focused Exam Lactate Level 07/31/20 12:15: Lactic Acid Level 1.18 07/31/20 18:05: Lactic Acid Level 1.14 08/01/20 13:15: Lactic Acid Level 1.19 Time of Focused Exam: 00:14 Objective Exam Vital Signs Vital Signs Date Time Temp Pulse Resp B/P (MAP) Pulse Ox O2 Delivery O2 Flow Rate FiO2 08/02/20 09:00 113 18 116/63 (80) Room Air 08/02/20 08:00 95 08/02/20 06:00 37.2 08/01/20 18:00 2.00 Capillary Refill : Less Than 3 Seconds General Appearance: Mild Distress Neck: Full Range of Motion Respiratory: No Accessory Muscle Use, No Respiratory Distress, Other (coarse rales and rhonchi on right left relatively clear no wheezing note) Cardiovascular: Regular Rate, Rhythm, No Edema, No Gallop, No JVD, No Murmur, Normal Peripheral Pulses, Other (but difficult to hear over moaning) Gastrointestinal: Normal Bowel Sounds, No Organomegaly, No Pulsatile Mass, Non Tender (patient reaction doesn't change to abdominal palpation), Soft Neurologic/Psychiatric: Disoriented Skin: Normal Color, Warm/Dry Results/Procedures Lab Laboratory Tests 08/02/20 03:32 Patient resulted labs reviewed. Imaging: Reviewed Imaging Report Assessment/Plan Assessment and Plan Assess & Plan/Chief Complaint A/P 1. Delirium no improvement likely multi-factorial etiology with right upper lobe pneumonia and previous MRSA positive blood cultures as well as positive influenza B nasal swab.. while the patient tested positive for methamphetamine family found TheraFlu in his room no evidence for alcohol and no reported known history of drug abuse. This raises the possibility of cross reaction with dextromethorphan. Discussed my concerns a bout persistent delirium and increasing white count indicating that we are not yet getting control of this infection. Continue Zosyn and vancomycin at this time there is no other area of infection noted other than right upper lobe pneumonia with no evidence for pleural effusion pulmonary abscess and essentially negative CAT scan of the abdomen and pelvis. CT head revealed a small lacunar infarct of the thalamus. Family confirms patient had had a TIA several years a TIA several years ago making small abscess highly unlikely. 2. Influenza B positive which may also be contributing to delirium. 3. Diabetes mellitus with DKA resolved blood sugar control reasonable continue current insulin. 4. Sodium mildly elevated indicative of deficit will give a bolus of a liter D5 half normal and increase IV fluid rate to 150 per continue to monitor. Prognosis remains poor. Critical Care Critically Ill Patient Clinical Quality Measures DVT/VTE Risk/Contraindication: Risk Factor Score Per Nursin RFS Level Per Nursing on Admit: 4+=Very High KHRIS TINEO MD Aug 02, 2020 10:44
--- NOTE | 2020-08-02 11:10 | Cardiology Progress Note ---
Subjective Date Seen by Provider: Aug 02, 2020 Time Seen by Provider: 11:08 Subjective/Events-last exam Patient is laying down in bed, not following commands, not answering questions, moving all extremities Review of Systems General: Other (unable to provide review of systems) Focused Exam Lactate Level 07/31/20 12:15: Lactic Acid Level 1.18 07/31/20 18:05: Lactic Acid Level 1.14 08/01/20 13:15: Lactic Acid Level 1.19 Time of Focused Exam: 00:14 Objective-Cardiology Exam Last Set of Vital Signs Vital Signs 08/01/20 08/02/20 08/02/20 08/02/20 18:00 06:00 08:00 10:00 Temp 37.2 Pulse 121 Resp 32 B/P (MAP) 121/84 (96) Pulse Ox 95 O2 Delivery Room Air O2 Flow Rate 2.00 Capillary Refill : Less Than 3 Seconds I&O Intake and Output 08/02/20 00:00 Intake Total 1420 ml Output Total 2125 ml Balance -705 ml Intake Oral 0 ml IV Total 1420 ml Output Urine Total 2125 ml General: No Acute Distress, Other (not following commands) HEENT: Atraumatic Neck: Supple, No Thyromegaly Lungs: Normal Air Movement Heart: Regular Rate, Normal S1, Normal S2, No Murmurs Extremities: No Edema Skin: No Rashes, No Significant Lesion Neuro: Other (not following commands, moving extremities) Psych/Mental Status: Other (not following commands) Results Lab Laboratory Tests 08/02/20 03:32 A/P-Cardiology Admission Diagnosis Sepsis MRSA Encephalopathy Sinus tachycardia Assessment/Plan Sepsis of undetermined etiology, worsening leukocytosis, please consider changing PICC line, managed by the Hospitalist svce Leukocytosis, worsening at this time. Managed by primary care team MRSA in cultures - source unknown Encephalopathy, change in mental status, history of methamphetamine use and sepsis, still confused and lethargic. Not following commands, managed by primary care team Echo of 07/28/20: LVEF 70-75%, normal PASP H/O Methamphetamine abuse Sinus tachycardia likely secondary to sepsis and/or withdrawal, artery is better controlled at this time DM - DKA (resolved) Influenza B (+) Status post acute renal failure, improved, continue to monitor renal function Clinical Quality Measures DVT/VTE Risk/Contraindication: Risk Factor Score Per Nursin RFS Level Per Nursing on Admit: 4+=Very High ASHU MURPHY MD Aug 02, 2020 11:10
[2020-08-02] MEDS ORDERED: inSUlin ASPART (NovoLOG) 1 UNIT/0.01 ML (CHARGE PER UNIT) SC ONE (12:15)
[2020-08-02] MEDS: D5 1/2 NS 1000 ML IV SOLUTION 1,000 ML IV SCH (15:07)
[2020-08-03] VITALS (23 sets, daily range): BP systolic 121–165; BP diastolic 65–100
[2020-08-03] MEDS: PIPERACILLIN/TAZOBACTAM (BULK) 4.5 GM in NS (IVPB) 100 ML IV SCH ×3 (03:10→20:09)
[2020-08-03] MEDS: meTOprolol 5 MG/5 ML (LOPRESSOR) VIAL IV SCH ×5 (03:14→20:10)
[2020-08-03 03:38] LABS: BASOPHILS # (AUTO) 0.1 10^3/uL (0.0-0.1); BASOPHILS % (AUTO) 0 % (0-10); EOSINOPHILS # (AUTO) 0.3 10^3/uL (0.0-0.3); EOSINOPHILS % (AUTO) 1 % (0-10); HEMATOCRIT 21 % (40-54); LYMPHOCYTES # (AUTO) 1.9 10^3/uL (1.0-4.0); LYMPHOCYTES % (AUTO) 8 % (12-44); MEAN CORPUSCULAR HEMOGLOBIN 27 pg (25-34); MEAN CORPUSCULAR HGB CONC 32 g/dL (32-36); MEAN CORPUSCULAR VOLUME 84 fL (80-99); MONOCYTES % (AUTO) 4 % (0-12); NEUTROPHILS # (AUTO) 19.2 10^3/uL (1.8-7.8); NEUTROPHILS % (AUTO) 81 % (42-75); PLATELET COUNT 498 10^3/uL (130-400); WHITE BLOOD COUNT 23.9 10^3/uL (4.3-11.0)
[2020-08-03 03:39] LABS: HEMOGLOBIN 6.8 g/dL (13.3-17.7)
[2020-08-03] MEDS: D5 1/2 NS 1000 ML IV SOLUTION 1,000 ML IV SCH ×2 (04:02→14:56)
[2020-08-03 04:05] LABS: CHLORIDE 119 MMOL/L (98-107); SODIUM 146 MMOL/L (135-145)
[2020-08-03 04:06] LABS: CALCIUM 7.2 MG/DL (8.5-10.1)
[2020-08-03 04:07] LABS: GLUCOSE 114 MG/DL (70-105)
[2020-08-03 04:08] LABS: CARBON DIOXIDE 18 MMOL/L (21-32)
[2020-08-03 04:11] LABS: CREATININE SERUM 1.15 MG/DL (0.60-1.30); GFR ESTIMATED > 60; PHOSPHORUS 2.4 MG/DL (2.3-4.7)
[2020-08-03 04:12] LABS: BUN/CREATININE RATIO 20
[2020-08-03 04:13] LABS: MAGNESIUM 1.7 MG/DL (1.6-2.4)
[2020-08-03] MEDS: MAGNESIUM 1 GM/100 ML IVPB 100 ML IV SCH ×3 (05:06→05:07)
[2020-08-03] MEDS: KCL 20 MEQ TAB (K-DUR) PO SCH (05:06)
[2020-08-03] MEDS: POTASSIUM CL 10MEQ/50ML IVPB 50 ML IV SCH ×6 (05:06→08:02)
[2020-08-03] MEDS: inSUlin ASPART (NovoLOG) 1 UNIT/0.01 ML (CHARGE PER UNIT) SC SCH ×3 (05:10→18:23)
[2020-08-03] MEDS: LORazepam INJ 2 MG/ML (ATIVAN) VIAL IVP PRN (06:03)
[2020-08-03] MEDS ORDERED: NS IV 500 ML 500 ML IV SCH (07:30)
[2020-08-03] MEDS: VANCOMYCIN 1250 MG/NS 250 ML IVPB IV SCH ×2 (08:15)
[2020-08-03] MEDS ORDERED: NS IV 500 ML 500 ML ONE (09:10)
[2020-08-03] MEDS: risperiDONE 1 MG (RisperDAL) TAB PO SCH ×2 (09:12→21:45)
[2020-08-03] MEDS: FLUCONAZOLE 200 MG/100 ML 100 ML IV SCH (09:25)
--- NOTE | 2020-08-03 10:53 | Progress Note - Hospitalist ---
Subjective HPI/CC On Admission Date Seen by Provider: Aug 03, 2020 Time Seen by Provider: 09:00 Dino Moreau is a 50-year-old male with H insulin-dependent diabetes mellitus, methamphetamine abuse, who presented with altered mental status. He had reportedly been out of his insulin according to his parents. He had been too weak to walk and was incontinent of urine.in the emergency room, he was found to be in diabetic ketoacidosis. At the time of my exam, he is lethargic, uncooperative, and unable to provide any history. Subjective/Events-last exam patient still turning head from side to side with eyes closed but does answer questions today. He denies pain anywhere including headache and denies nausea. He appeared genuinely surprised per the nurse when she did ask him about meth use and told that he was positive. He told me that he had tried it several times in the past but it had been many years. While the nursing staff had not been able to perform oral care due to his delirium his gums and dentition were in good shape considering. Patient also denies any problems of sore throat just reported being dry and requesting something to drink. Focused Exam Lactate Level 07/31/20 12:15: Lactic Acid Level 1.18 07/31/20 18:05: Lactic Acid Level 1.14 08/01/20 13:15: Lactic Acid Level 1.19 Time of Focused Exam: 00:14 Objective Exam Vital Signs Vital Signs Date Time Temp Pulse Resp B/P (MAP) Pulse Ox O2 Delivery O2 Flow Rate FiO2 08/03/20 09:54 36.5 108 18 133/80 96 Room Air 08/01/20 18:00 2.00 Capillary Refill : Less Than 3 Seconds General Appearance: Mild Distress Neck: Full Range of Motion, Normal Inspection Respiratory: No Accessory Muscle Use, No Respiratory Distress, Other (still has some rhonchi in the right upper lobe but much less congestion left side is clear) Cardiovascular: Regular Rate, Rhythm, No Edema, No Gallop, No JVD, No Murmur, Normal Peripheral Pulses Gastrointestinal: Normal Bowel Sounds, No Organomegaly, No Pulsatile Mass, Non Tender, Soft Extremity: Normal Capillary Refill, Normal Inspection, Normal Range of Motion, Non Tender, No Calf Tenderness, No Pedal Edema Neurologic/Psychiatric: Other (patient moving all extremities reporting no pain or numbness able to answer questions oriented times 2) Results/Procedures Lab Laboratory Tests 08/03/20 03:10 Patient resulted labs reviewed. Imaging: Reviewed Imaging Report Assessment/Plan Assessment and Plan Assess & Plan/Chief Complaint A/P 1. Delirium improving for the first time with decreased chest congestion and a white count decreasing as well. Discussed with the family that this was his first positive day but we were not out of the black yet. Considering improvement they're comfortable with having the patient remain here even if a bed opened up at one of the tertiary care centers for which we had attempted placement previously.we discussed that his A1c level on the upper 11 range was compatible with somebody that was not taking care of his diabetes which with s evere DKA triggered by influenza B and further complicated by MRSA sepsis from probable pneumonia has been the reason for his slow progress. While the patient tested positive for methamphetamine family found TheraFlu in his room no evidence for alcohol and no reported known history of drug abuse. This raises the possibility of cross reaction with [id number] cold preparations. 2. Influenza B positive which may also be contributing to delirium. 3. Diabetes mellitus with DKA resolved blood sugar control reasonable continue current insulin. 4. mild hypokalemia we'll replace. 5. Anemia of chronic disease most likely hemoglobin has dropped below 7 we'll give 1 unit packed cells no evidence for bleeding complex medical management . Critical Care Critically Ill Patient Clinical Quality Measures DVT/VTE Risk/Contraindication: Risk Factor Score Per Nursin RFS Level Per Nursing on Admit: 4+=Very High KHRIS TINEO MD Aug 03, 2020 10:53
--- NOTE | 2020-08-03 10:57 | Cardiology Progress Note ---
Subjective Date Seen by Provider: Aug 03, 2020 Time Seen by Provider: 10:55 Subjective/Events-last exam Patient is more awake today, still lethargic, more oriented and cooperative Review of Systems General: No Chills, No Night Sweats; Fatigue, Malaise; No Appetite, No Other HEENT: No Head Aches, No Visual Changes, No Eye Pain, No Ear Pain, No Dysphasia, No Sinus Congestion, No Post Nasal Drip, No Sore Throat, No Other Pulmonary: No Dyspnea, No Cough, No Pleuritic Chest Pain, No Other Cardiovascular: No: Chest Pain, Palpitations, Orthopnea, Paroxysmal Noc. Dyspnea, Edema, Lt Headedness, Other Focused Exam Lactate Level 07/31/20 12:15: Lactic Acid Level 1.18 07/31/20 18:05: Lactic Acid Level 1.14 08/01/20 13:15: Lactic Acid Level 1.19 Time of Focused Exam: 00:14 Objective-Cardiology Exam Last Set of Vital Signs Vital Signs 08/01/20 08/03/20 18:00 09:54 Temp 36.5 Pulse 108 Resp 18 B/P (MAP) 133/80 Pulse Ox 96 O2 Delivery Room Air O2 Flow Rate 2.00 Capillary Refill : Less Than 3 Seconds I&O Intake and Output 08/03/20 00:00 Intake Total 1200 ml Output Total 2375 ml Balance -1175 ml Intake Oral 0 ml IV Total 1200 ml Output Urine Total 2375 ml General: Alert, Cooperative, No Acute Distress HEENT: Atraumatic Neck: Supple, No Thyromegaly Lungs: Clear to Auscultation, Normal Air Movement Heart: Regular Rate, Normal S1, Normal S2, No Murmurs Abdomen: Normal Bowel Sounds Extremities: No Clubbing, No Edema Skin: No Rashes, No Significant Lesion Neuro: Normal Speech Psych/Mental Status: Mood NL Results Lab Laboratory Tests 08/03/20 03:10 A/P-Cardiology Admission Diagnosis Sepsis MRSA Encephalopathy Sinus tachycardia Assessment/Plan Sepsis of undetermined etiology, worsening leukocytosis, please consider changing PICC line, managed by the Hospitalist svce Leukocytosis, secondary to sepsis, managed and followed by primary care team MRSA in cultures - source unknown Encephalopathy, change in mental status, history of methamphetamine use and sepsis, improving today, more awake, responding appropriately. Reported history of alcohol use, drinking bourbon. Continue with withdrawal precautions Echo of 07/28/20: LVEF 70-75%, normal PASP H/O Methamphetamine abuse Sinus tachycardia likely secondary to sepsis and/or withdrawal, artery is better controlled at this time DM - DKA (resolved) Influenza B (+) Status post acute renal failure, improved, continue to monitor renal function Clinical Quality Measures DVT/VTE Risk/Contraindication: Risk Factor Score Per Nursin RFS Level Per Nursing on Admit: 4+=Very High ASHU MURPHY MD Aug 03, 2020 10:57
[2020-08-03] MEDS: THIAMINE INJECTION 100 MG, FOLIC ACID INJECTION 1 MG, VITAMIN MULTI INJECTION 10 ML, MA... IV SCH ×5 (11:06)
[2020-08-03] MEDS: PANTOPRAZOLE 40 MG (PROTONIX) VIAL IV SCH (11:06)
[2020-08-03 15:02] LABS: HEMOGLOBIN 7.9 g/dL (13.3-17.7)
[2020-08-03 15:16] LABS: CHLORIDE 117 MMOL/L (98-107); POTASSIUM 3.5 MMOL/L (3.6-5.0); SODIUM 142 MMOL/L (135-145)
[2020-08-03 15:17] LABS: CALCIUM 7.1 MG/DL (8.5-10.1)
[2020-08-03 15:18] LABS: GLUCOSE 285 MG/DL (70-105); TOTAL PROTEIN 5.9 GM/DL (6.4-8.2)
[2020-08-03 15:19] LABS: CARBON DIOXIDE 17 MMOL/L (21-32)
[2020-08-03 15:20] LABS: BILIRUBIN,TOTAL 0.9 MG/DL (0.1-1.0)
[2020-08-03 15:21] LABS: ALKALINE PHOSPHATASE 134 U/L (40-136)
[2020-08-03 15:22] LABS: CREATININE SERUM 1.25 MG/DL (0.60-1.30); GFR ESTIMATED > 60
[2020-08-03 15:23] LABS: BUN/CREATININE RATIO 18
[2020-08-03 15:24] LABS: ALANINE AMINOTRANSFERASE 58 U/L (0-55)
[2020-08-03] MEDS ORDERED: LIDOCAINE UROJET 2% GEL 10 ML PKG ONE (20:28)
[2020-08-04] VITALS (12 sets, daily range): BP systolic 106–156; BP diastolic 54–76
[2020-08-04] MEDS: meTOprolol 5 MG/5 ML (LOPRESSOR) VIAL IV SCH ×5 (00:33→16:30)
[2020-08-04] MEDS: inSUlin ASPART (NovoLOG) 1 UNIT/0.01 ML (CHARGE PER UNIT) SC SCH ×4 (00:42→22:00)
[2020-08-04] MEDS: PIPERACILLIN/TAZOBACTAM (BULK) 4.5 GM in NS (IVPB) 100 ML IV SCH ×3 (03:26→22:01)
[2020-08-04] MEDS: D5 1/2 NS 1000 ML IV SOLUTION 1,000 ML IV SCH (03:27)
[2020-08-04 03:48] LABS: BASOPHILS % (AUTO) 0 % (0-10); EOSINOPHILS # (AUTO) 0.1 10^3/uL (0.0-0.3); EOSINOPHILS % (AUTO) 1 % (0-10); HEMATOCRIT 22 % (40-54); LYMPHOCYTES # (AUTO) 1.8 10^3/uL (1.0-4.0); LYMPHOCYTES % (AUTO) 9 % (12-44); MEAN CORPUSCULAR HEMOGLOBIN 27 pg (25-34); MEAN CORPUSCULAR HGB CONC 32 g/dL (32-36); MEAN CORPUSCULAR VOLUME 84 fL (80-99); MONOCYTES # (AUTO) 0.6 10^3/uL (0.0-1.0); MONOCYTES % (AUTO) 3 % (0-12); NEUTROPHILS # (AUTO) 16.7 10^3/uL (1.8-7.8); NEUTROPHILS % (AUTO) 83 % (42-75); PLATELET COUNT 510 10^3/uL (130-400); WHITE BLOOD COUNT 20.1 10^3/uL (4.3-11.0)
[2020-08-04 04:00] LABS: POTASSIUM 3.1 MMOL/L (3.6-5.0)
[2020-08-04 04:05] LABS: CREATININE SERUM 1.29 MG/DL (0.60-1.30); PHOSPHORUS 2.2 MG/DL (2.3-4.7)
[2020-08-04 04:07] LABS: MAGNESIUM 1.7 MG/DL (1.6-2.4)
[2020-08-04] MEDS: POTASSIUM CL 10MEQ/50ML IVPB 50 ML IV SCH ×5 (05:00→08:16)
[2020-08-04] MEDS: MAGNESIUM 1 GM/100 ML IVPB 100 ML IV SCH ×3 (05:00→06:37)
[2020-08-04] MEDS: KCL 20 MEQ TAB (K-DUR) PO SCH (05:01)
--- NOTE | 2020-08-04 06:16 | Pulmonary Progress Note ---
Subjective Time Seen by a Provider: 06:10 Subjective/Events-last exam Pt is more alert however still lethargic Sepsis Event Evaluation Height, Weight, BMI Height: '" Weight: lbs. oz. kg; 28.50 BMI Method: Focused Exam Lactate Level 08/01/20 13:15: Lactic Acid Level 1.19 Time of Focused Exam: 00:14 Exam Exam Vital Signs Date Time Temp Pulse Resp B/P (MAP) Pulse Ox O2 Delivery O2 Flow Rate FiO2 08/04/20 05:00 109 23 128/61 (83) 95 Room Air 08/04/20 04:00 102 133/70 (91) 96 Room Air 08/04/20 04:00 95 Room Air 08/04/20 03:00 111 33 139/65 (89) 94 Room Air 08/04/20 02:00 107 15 121/68 (85) 96 Room Air 08/04/20 01:00 96 30 120/55 (76) 95 Room Air 08/04/20 01:00 96 08/04/20 00:33 115 28 106/54 (71) 93 Room Air 08/04/20 00:00 95 Room Air 08/03/20 23:00 115 26 96 Room Air 08/03/20 22:00 107 Room Air 08/03/20 21:00 101 Room Air 08/03/20 20:07 108 15 146/87 (106) 97 Room Air 08/03/20 20:00 95 Room Air 08/03/20 20:00 37.3 Room Air 08/03/20 19:00 123 36 127/90 (102) 99 Room Air 08/03/20 19:00 123 08/03/20 18:00 123 14 127/90 (102) 97 Nasal Cannula 2.00 08/03/20 17:00 108 23 151/89 (109) 97 Nasal Cannula 2.00 08/03/20 16:00 95 Room Air 08/03/20 16:00 100 165/99 (121) 96 Nasal Cannula 2.00 08/03/20 15:49 38.1 08/03/20 15:00 112 157/70 (99) 92 Nasal Cannula 2.00 08/03/20 14:00 112 21 155/75 (101) 97 Nasal Cannula 2.00 08/03/20 13:00 107 29 148/80 (102) 94 Nasal Cannula 2.00 08/03/20 12:33 79 08/03/20 12:00 95 Room Air 08/03/20 12:00 98 15 138/71 (93) 97 Nasal Cannula 2.00 08/03/20 11:17 37.7 108 20 158/100 99 Room Air 08/03/20 11:14 37.7 08/03/20 11:00 98 15 97 Room Air 08/03/20 10:00 109 28 121/85 (97) 97 Room Air 08/03/20 09:54 36.5 108 18 133/80 96 Room Air 08/03/20 09:41 36.5 108 18 151/89 98 Room Air 08/03/20 09:00 107 14 133/80 (97) 95 Room Air 08/03/20 08:24 95 Room Air 08/03/20 08:00 107 151/89 (109) Room Air 08/03/20 07:00 110 25 139/73 (95) Room Air 08/03/20 07:00 100 I & O 08/04/20 07:00 Intake Total 1990 ml Output Total 1975 ml Balance 15 ml Height & Weight Height: '" Weight: lbs. oz. kg; 28.50 BMI Method: General Appearance: Mild Distress Neck: Full Range of Motion, Normal Inspection Respiratory: No Accessory Muscle Use, No Respiratory Distress, Other (still has some rhonchi in the right upper lobe but much less congestion left side is clear) Cardiovascular: Regular Rate, Rhythm, No Edema, No Gallop, No JVD, No Murmur, Normal Peripheral Pulses Capillary Refill: Less Than 3 Seconds Peripheral Pulses: 2+ Radial Pulses (R), 2+ Radial Pulses (L) Gastrointestinal: non tender, soft, hernia (small umbilical hernia) Extremity: Normal Capillary Refill, Normal Inspection, Normal Range of Motion, Non Tender, No Calf Tenderness, No Pedal Edema Neurologic/Psychiatric: Other (patient moving all extremities reporting no pain or numbness able to answer questions oriented times 2) Skin: Normal Color, Warm/Dry Results Lab Laboratory Tests 08/03/20 03:10 08/03/20 14:50 08/03/20 14:53 08/04/20 03:30 Assessment/Plan Assessment/Plan s/p DKA -DKA protocol - Is now off -Continue to monitor Methamphetamine use -education Lethargy - CT of head - No acute change -S/p Lumbar puncture - neg -S/p HIDA scan - negative -Hold Ativan -Continue PRN morphine and Geodon for now Bacteremia -May need REX -Cardiology is following -Obtain peripheral IV access and d/c PICC line and culture tip. Influenza B + -COVID is negative -Tamiflu Anemia s/p 1 unit PRBC 08/03 -Monitor -Protonix -hold anticoagulation -repeat MELISA Jackman DO Aug 04, 2020 06:16
[2020-08-04] MEDS ORDERED: TROUGH ORDER-PHARMACY XX NR (07:00)
[2020-08-04] MEDS ORDERED: POTASSIUM PHOSPHATE INJ 30 MM in NS (IVPB) 250 ML IV NR (07:01)
[2020-08-04 07:30] LABS: INR 1.2 (0.8-1.4); PROTHROMBIN TIME PATIENT 15.5 SEC (12.2-14.7)
[2020-08-04] MEDS: PANTOPRAZOLE 40 MG (PROTONIX) VIAL IV SCH ×3 (07:59→22:01)
--- NOTE | 2020-08-04 08:26 | Progress Note - Hospitalist ---
Subjective HPI/CC On Admission Date Seen by Provider: Aug 04, 2020 Time Seen by Provider: 08:45 Dino Moreau is a 50-year-old male with H insulin-dependent diabetes mellitus, methamphetamine abuse, who presented with altered mental status. He had reportedly been out of his insulin according to his parents. He had been too weak to walk and was incontinent of urine.in the emergency room, he was found to be in diabetic ketoacidosis. At the time of my exam, he is lethargic, uncooperative, and unable to provide any history. Subjective/Events-last exam patient less agitated today able to answer simple questions denies headache chest or abdominal pain and reports no nausea. He reports that he would like ice chips. Focused Exam Lactate Level 08/04/20 07:00: Lactic Acid Level 1.46 Time of Focused Exam: 00:14 Lactic Acid Level Objective Exam Vital Signs Vital Signs Date Time Temp Pulse Resp B/P (MAP) Pulse Ox O2 Delivery O2 Flow Rate FiO2 08/05/20 10:37 36.8 99 22 131/76 96 Room Air 08/03/20 18:00 2.00 Capillary Refill : Less Than 3 Seconds General Appearance: No Apparent Distress Respiratory: No Accessory Muscle Use, No Respiratory Distress, Other (a few rhonchi over right upper lobe area elsewhere her chest is clear) Cardiovascular: Regular Rate, Rhythm, No Edema, No Gallop, No JVD, No Murmur, Normal Peripheral Pulses Gastrointestinal: Normal Bowel Sounds, No Organomegaly, No Pulsatile Mass, Non Tender, Soft Extremity: Normal Capillary Refill, Normal Inspection, Normal Range of Motion, Non Tender, No Calf Tenderness, No Pedal Edema Neurologic/Psychiatric: Other (moving all extremities oriented to person and knows his birthday) Results/Procedures Lab Laboratory Tests 08/04/20 18:30 08/05/20 06:30 Patient resulted labs reviewed. Imaging: Reviewed Imaging Report Assessment/Plan Assessment and Plan Assess & Plan/Chief Complaint A/P 1. Delirium improving for the first time with decreased chest congestion and a white count decreasing as well. Dr. Mcmanus has evaluated the patient and we're both in agreement in regards to transfer to the floor. While the patient tested positive for methamphetamine family found TheraFlu in his room no evidence for alcohol and no reported known history of drug abuse. This raises the possibility of cross reaction with [id number] cold preparations. 2. Influenza B positive which may also be contributing to delirium. 3. Diabetes mellitus with DKA resolved blood sugar control reasonable continue current insulin. 4. mild hypokalemia we'll replace. 5. Anemia of chronic disease most likely hemoglobin up to 7.9 after 1 unit packed cells continue daily CBCs. . Critical Care Critically Ill Patient Clinical Quality Measures DVT/VTE Risk/Contraindication: Risk Factor Score Per Nursin RFS Level Per Nursing on Admit: 4+=Very High KHRIS TINEO MD Aug 04, 2020 08:26
[2020-08-04] MEDS: FLUCONAZOLE 200 MG/100 ML 100 ML IV SCH (09:06)
[2020-08-04] MEDS: THIAMINE INJECTION 100 MG, FOLIC ACID INJECTION 1 MG, VITAMIN MULTI INJECTION 10 ML, MA... IV SCH ×5 (09:07)
[2020-08-04] MEDS: risperiDONE 1 MG (RisperDAL) TAB PO SCH ×2 (09:07→22:01)
[2020-08-04] MEDS: VANCOMYCIN 1250 MG/NS 250 ML IVPB IV SCH ×2 (09:26)
--- NOTE | 2020-08-04 10:26 | NUR ---
PTD VANCOMYCIN LABS: SCR 1.29 VANCOMYCIN TROUGH 12.1 ANTIBIOTICS: D10 VANCOMYCIN THERAPY ( D8 SINCE FIRST NEGATIVE BLOOD CULTURE) PLAN: CONTINUE WITH CURRENT DOSING, LEVELS HAVE BEEN UP AND DOWN. WILL RECHECK TOWARDS END OF WEEK
--- NOTE | 2020-08-04 11:08 | Progress Note - Cardiology ---
Cardiology SOAP Progress Note Objective: I&O/Vital Signs 08/05/20 08/05/20 08/05/20 08/05/20 00:00 01:00 01:05 04:43 Temp 37.0 37.0 37.9 Pulse 120 129 120 117 Resp 22 22 24 B/P (MAP) 134/71 (92) 134/71 (92) 135/62 (86) Pulse Ox 95 95 94 O2 Delivery Room Air Room Air Room Air 08/05/20 08/05/20 08/05/20 08/05/20 05:21 06:45 08:41 10:05 Temp 37.8 36.6 36.6 Pulse 116 106 106 Resp 24 24 B/P (MAP) 109/58 (75) 109/58 Pulse Ox 93 95 O2 Delivery Room Air Room Air 08/05/20 08/05/20 10:20 10:37 Temp 37.0 36.8 Pulse 99 99 Resp 22 22 B/P (MAP) 131/76 Pulse Ox 97 96 O2 Delivery Room Air Room Air 08/05/20 00:00 Intake Total 2652.5 ml Output Total 2300 ml Balance 352.5 ml Constitutional: No AAO x 3; well-developed, well-nourished, other (confused, uncooperative ) Respiratory: chest expansion is symmetric, chest is bilaterally symmetric, other (tachypnea) Cardiovascular: No JVD; tachycardia Gastrointestional: soft, round, audible bowel sounds Extremities: no lower extremity edema bilateral Neurologic/Psychiatric: other (moving all etremities) Skin: No rash on exposed areas, No ulcerations on exposed areas Results/Procedures: Labs Laboratory Tests 08/04/20 12:59: Glucometer 112H 08/04/20 16:59: Glucometer 251H 08/04/20 18:30: White Blood Count 16.7H, Red Blood Count 2.59L, Hemoglobin 7.0L, Hematocrit 22L, Mean Corpuscular Volume 86, Mean Corpuscular Hemoglobin 27, Mean Corpuscular Hemoglobin Concent 32, Red Cell Distribution Width 15.3H, Platelet Count 459H, Mean Platelet Volume 9.8, Immature Granulocyte % (Auto) 4, Neutrophils (%) (Auto) 83H, Lymphocytes (%) (Auto) 9L, Monocytes (%) (Auto) 3, Eosinophils (%) (Auto) 1, Basophils (%) (Auto) 0, Neutrophils # (Auto) 13.8H, Lymphocytes # (Auto) 1.5, Monocytes # (Auto) 0.5, Eosinophils # (Auto) 0.2, Basophils # (Auto) 0.0, Immature Granulocyte # (Auto) 0.6H 08/04/20 20:36: Glucometer 365H 08/05/20 05:38: Glucometer 93 08/05/20 06:30: White Blood Count 17.8H, Red Blood Count 2.52L, Hemoglobin 6.8*L, Hematocrit 21L , Mean Corpuscular Volume 85, Mean Corpuscular Hemoglobin 27, Mean Corpuscular Hemoglobin Concent 32, Red Cell Distribution Width 15.3H, Platelet Count 494H, Mean Platelet Volume 9.5, Immature Granulocyte % (Auto) 3, Neutrophils (%) (Auto) 81H, Lymphocytes (%) (Auto) 11L, Monocytes (%) (Auto) 3, Eosinophils (%) (Auto) 1, Basophils (%) (Auto) 0, Neutrophils # (Auto) 14.4H, Lymphocytes # (Auto) 2.0, Monocytes # (Auto) 0.6, Eosinophils # (Auto) 0.2, Basophils # (Auto) 0.0, Immature Granulocyte # (Auto) 0.6H, Neutrophils % (Manual) 88, Lymphocytes % (Manual) 9, Monocytes % (Manual) 1, Eosinophils % (Manual) 2, Basophils % (Manual) 0, Band Neutrophils 0, Polychromasia SLIGHT, Hypochromasia SLIGHT, Anisocytosis SLIGHT, Sodium Level 141, Potassium Level 3.1L, Chloride Level 113H , Carbon Dioxide Level 19L, Anion Gap 9, Blood Urea Nitrogen 16, Creatinine 1.26, Estimat Glomerular Filtration Rate 60, BUN/Creatinine Ratio 13, Glucose Level 44*L, Calcium Level 7.0L, Phosphorus Level 2.8, Magnesium Level 1.6, Beta-Hydroxybutyrate (Chem panel) 0.03 08/05/20 08:30: Glucometer 70 Microbiology 07/31/20 Blood Culture - Final, Complete No growth 07/29/20 Gram Stain - Final, Complete 07/29/20 CSF Culture - Final, Complete No growth 07/27/20 MRSA Screen - Final, Complete MRSA not isolated 07/26/20 Urine Culture - Final, Complete NO GROWTH A/P: Assessment: Sepsis of undetermined etiology, managed by the Hospitalist bimal MRSA in cultures - source unknown Encephalopathy AMS Echo of 07/28/20: LVEF 70-75%, normal PASP H/O Methamphetamine abuse Sinus tachycardia likely secondary to sepsis and/or withdrawal DM - DKA (resolved) Influenza B (+)\ WAN-3 Anemia of undetermined etiology - management per Medical services Plan: MRSA confirmed in cultures, source undetermined - management per medical services If no other source is found, then REX when stable and able to provide consent Anemia of undetermined etiology - management per medical services Monitor lab Replace electrolytes as indicated DIVINA LYLES Aug 04, 2020 11:08
--- NOTE | 2020-08-04 11:54 | Progress Note - Cardiology ---
Cardiology SOAP Progress Note Subjective: Lying in bed. Confused. Conversation is at times inappropriate to current subject. States he wants to go home and get cleaned up and we can call him to come back whenever we need him. Objective: I&O/Vital Signs 08/05/20 08/05/20 08/05/20 08/05/20 00:00 01:00 01:05 04:43 Temp 37.0 37.0 37.9 Pulse 120 129 120 117 Resp 22 22 24 B/P (MAP) 134/71 (92) 134/71 (92) 135/62 (86) Pulse Ox 95 95 94 O2 Delivery Room Air Room Air Room Air 08/05/20 08/05/20 08/05/20 08/05/20 05:21 06:45 08:41 10:05 Temp 37.8 36.6 36.6 Pulse 116 106 106 Resp 24 24 B/P (MAP) 109/58 (75) 109/58 Pulse Ox 93 95 O2 Delivery Room Air Room Air 08/05/20 08/05/20 10:20 10:37 Temp 37.0 36.8 Pulse 99 99 Resp 22 22 B/P (MAP) 131/76 Pulse Ox 97 96 O2 Delivery Room Air Room Air 08/05/20 00:00 Intake Total 2652.5 ml Output Total 2300 ml Balance 352.5 ml Constitutional: well-developed, well-nourished Respiratory: chest expansion is symmetric, chest is bilaterally symmetric, other (tachypnea) Cardiovascular: No JVD; tachycardia Gastrointestional: soft, round, audible bowel sounds Extremities: no lower extremity edema bilateral Neurologic/Psychiatric: No oriented x 3 (alert, oriented to self only); grossly intact (moves all extremities) Skin: No rash on exposed areas, No ulcerations on exposed areas Results/Procedures: Labs Laboratory Tests 08/04/20 12:59: Glucometer 112H 08/04/20 16:59: Glucometer 251H 08/04/20 18:30: White Blood Count 16.7H, Red Blood Count 2.59L, Hemoglobin 7.0L, Hematocrit 22L, Mean Corpuscular Volume 86, Mean Corpuscular Hemoglobin 27, Mean Corpuscular Hemoglobin Concent 32, Red Cell Distribution Width 15.3H, Platelet Count 459H, Mean Platelet Volume 9.8, Immature Granulocyte % (Auto) 4, Neutrophils (%) (Auto) 83H, Lymphocytes (%) (Auto) 9L, Monocytes (%) (Auto) 3, Eosinophils (%) (Auto) 1, Basophils (%) (Auto) 0, Neutrophils # (Auto) 13.8H, Lymphocytes # (Auto) 1.5, Monocytes # (Auto) 0.5, Eosinophils # (Auto) 0.2, Basophils # (Auto) 0.0, Immature Granulocyte # (Auto) 0.6H 08/04/20 20:36: Glucometer 365H 08/05/20 05:38: Glucometer 93 08/05/20 06:30: White Blood Count 17.8H, Red Blood Count 2.52L, Hemoglobin 6.8*L, Hematocrit 21L , Mean Corpuscular Volume 85, Mean Corpuscular Hemoglobin 27, Mean Corpuscular Hemoglobin Concent 32, Red Cell Distribution Width 15.3H, Platelet Count 494H, Mean Platelet Volume 9.5, Immature Granulocyte % (Auto) 3, Neutrophils (%) (Auto) 81H, Lymphocytes (%) (Auto) 11L, Monocytes (%) (Auto) 3, Eosinophils (%) (Auto) 1, Basophils (%) (Auto) 0, Neutrophils # (Auto) 14.4H, Lymphocytes # (Auto) 2.0, Monocytes # (Auto) 0.6, Eosinophils # (Auto) 0.2, Basophils # (Auto) 0.0, Immature Granulocyte # (Auto) 0.6H, Neutrophils % (Manual) 88, Lymphocytes % (Manual) 9, Monocytes % (Manual) 1, Eosinophils % (Manual) 2, Basophils % (Manual) 0, Band Neutrophils 0, Polychromasia SLIGHT, Hypochromasia SLIGHT, Anisocytosis SLIGHT, Sodium Level 141, Potassium Level 3.1L, Chloride Level 113H , Carbon Dioxide Level 19L, Anion Gap 9, Blood Urea Nitrogen 16, Creatinine 1.26, Estimat Glomerular Filtration Rate 60, BUN/Creatinine Ratio 13, Glucose Level 44*L, Calcium Level 7.0L, Phosphorus Level 2.8, Magnesium Level 1.6, Beta- Hydroxybutyrate (Chem panel) 0.03 08/05/20 08:30: Glucometer 70 Microbiology 07/31/20 Blood Culture - Final, Complete No growth 07/29/20 Gram Stain - Final, Complete 07/29/20 CSF Culture - Final, Complete No growth 07/27/20 MRSA Screen - Final, Complete MRSA not isolated 07/26/20 Urine Culture - Final, Complete NO GROWTH A/P: Assessment: Sepsis of undetermined etiology, managed by the Hospitalist bimal MRSA in cultures - source unknown Encephalopathy - improving AMS - improving Echo of 07/28/20: LVEF 70-75%, normal PASP H/O Methamphetamine abuse Sinus tachycardia likely secondary to sepsis and/or withdrawal DM - DKA (resolved) Influenza B (+)\ WAN-3 Anemia of undetermined etiology - management per Medical services Plan: MRSA confirmed in cultures, source undetermined - management per medical services If no other source is found, then REX when stable and able to provide consent Anemia of undetermined etiology - management per medical services Monitor lab Replace electrolytes as indicated DIVINA LYLES Aug 04, 2020 11:54
--- NOTE | 2020-08-04 13:16 | NUR ---
"RD ASSESSMENT PMHx: DM; methamphetamine abuse PT INTERACTION: Note pt has delirium, per chart review. Note all information gathered for nutrition follow-up is per chart review. Note PO intake 50% x1meal. Note last BM was 08/04, and pt not currently on bowel regimen. ABNORMAL NUTRITION-RELATED LAB VALUES LOW: K 3.1; Ca 7.0; phos 2.2 HIGH: Cl 118; BUN 20; glu 182 Est. kcal needs: 1825 kcal | 25 kcal/kg Est. Pro needs: 73 g Pro | 1.0 g Pro/kg PES STATEMENT: Inadequate oral intake (NI-2.1) related to loss of appetite as evidenced by chart review | PO intake 50% x1meal INTERVENTION: Continue with current diet order of Clear Liquid diet. Would recommend diet advancement as medically able and as tolerated. Will continue to follow and reassess as pt needs, intake, and status change. Rajat Saeed, MS RD LD"
[2020-08-04] MEDS ORDERED: inSUlin ASPART (NovoLOG) 1 UNIT/0.01 ML (CHARGE PER UNIT) ONE (17:18)
--- NOTE | 2020-08-04 17:40 | Progress Note - Cardiology ---
Cardiology SOAP Progress Note Subjective: Does not report symptoms Objective: I&O/Vital Signs 08/04/20 08/04/20 08/04/20 08/04/20 06:00 06:35 08:00 08:00 Temp 37.6 Pulse 112 106 105 B/P (MAP) 107/72 (84) 137/63 (87) Pulse Ox 97 96 96 O2 Delivery Room Air Room Air Room Air 08/04/20 08/04/20 08/04/20 08/04/20 10:15 12:00 12:00 12:40 Temp 37.5 37.6 Pulse 106 104 104 Resp 22 22 B/P (MAP) 109/62 (78) 132/76 (94) Pulse Ox 94 93 96 O2 Delivery Room Air Room Air Room Air 08/04/20 16:58 Temp 37.6 Pulse 109 Resp 20 B/P (MAP) 141/66 (91) Pulse Ox 93 O2 Delivery Room Air 08/04/20 00:00 Intake Total 300 ml Output Total 1750 ml Balance -1450 ml Constitutional: well-developed, well-nourished Respiratory: chest expansion is symmetric, chest is bilaterally symmetric, other (tachypnea) Cardiovascular: No JVD; tachycardia Gastrointestional: soft, round, audible bowel sounds Extremities: no lower extremity edema bilateral Neurologic/Psychiatric: No oriented x 3 (alert, oriented to self only); other (moves all limbs) Skin: No rash on exposed areas, No ulcerations on exposed areas Results/Procedures: Labs Laboratory Tests 08/03/20 17:47: Glucometer 338H 08/04/20 00:38: Glucometer 337H 08/04/20 03:30: White Blood Count 20.1H, Red Blood Count 2.59L, Hemoglobin 7.0L, Hematocrit 22L, Mean Corpuscular Volume 84, Mean Corpuscular Hemoglobin 27, Mean Corpuscular Hemoglobin Concent 32, Red Cell Distribution Width 15.0H, Platelet Count 510H, Mean Platelet Volume 10.0, Immature Granulocyte % (Auto) 4, Neutrophils (%) ( Auto) 83H, Lymphocytes (%) (Auto) 9L, Monocytes (%) (Auto) 3, Eosinophils (%) (Auto) 1, Basophils (%) (Auto) 0, Neutrophils # (Auto) 16.7H, Lymphocytes # (Auto) 1.8, Monocytes # (Auto) 0.6, Eosinophils # (Auto) 0.1, Basophils # (Auto) 0.0, Immature Granulocyte # (Auto) 0.9H, Sodium Level 144, Potassium Level 3.1L, Chloride Level 118H, Carbon Dioxide Level 17L, Anion Gap 9, Blood Urea Nitrogen 20H, Creatinine 1.29, Estimat Glomerular Filtration Rate 59, BUN/Creatinine Ratio 16, Glucose Level 182H, Calcium Level 7.0L, Phosphorus Level 2.2L, Magnesium Level 1.7, Beta-Hydroxybutyrate (Chem panel) 0.04 08/04/20 06:38: Glucometer 105 08/04/20 07:00: Prothrombin Time 15.5H, INR Comment 1.2, Activated Partial Thromboplast Time 38H , Lactic Acid Level 1.46, Ammonia 15 08/04/20 08:05: Vancomycin Level Trough 12.1 08/04/20 12:59: Glucometer 112H 08/04/20 16:59: Glucometer 251H Microbiology 07/31/20 Blood Culture - Preliminary, Resulted No growth 07/29/20 Gram Stain - Final, Complete 07/29/20 CSF Culture - Final, Complete No growth 07/27/20 MRSA Screen - Final, Complete MRSA not isolated 07/26/20 Urine Culture - Final, Complete NO GROWTH Laboratory Tests 08/03/20 03:10 08/03/20 14:50 08/03/20 14:53 08/04/20 03:30 A/P: Assessment: Sepsis of undetermined etiology, managed by the Hospitalist bimal MRSA in cultures - source unknown Encephalopathy - improving AMS - improving Echo of 07/28/20: LVEF 70-75%, normal PASP H/O Methamphetamine abuse Sinus tachycardia likely secondary to sepsis and/or withdrawal DM - DKA (resolved) Influenza B WAN-3, improved Severe aemia of undetermined etiology - management per Medical services Plan: MRSA confirmed in cultures, source undetermined - management per Medical services If no other source is found, then REX when stable and able to provide consent Anemia of undetermined etiology - management per medical services Monitor lab Replace electrolytes as indicated MUNIR CASTANEDA MD FACP [facility] Aug 04, 2020 17:40
[2020-08-04] MEDS ORDERED: meTOprolol 5 MG/5 ML (LOPRESSOR) VIAL IV PRN (18:00)
[2020-08-04 18:49] LABS: BASOPHILS % (AUTO) 0 % (0-10); EOSINOPHILS # (AUTO) 0.2 10^3/uL (0.0-0.3); EOSINOPHILS % (AUTO) 1 % (0-10); HEMATOCRIT 22 % (40-54); LYMPHOCYTES # (AUTO) 1.5 10^3/uL (1.0-4.0); LYMPHOCYTES % (AUTO) 9 % (12-44); MEAN CORPUSCULAR HEMOGLOBIN 27 pg (25-34); MEAN CORPUSCULAR HGB CONC 32 g/dL (32-36); MEAN CORPUSCULAR VOLUME 86 fL (80-99); MEAN PLATELET VOLUME 9.8 fL (9.0-12.2); MONOCYTES # (AUTO) 0.5 10^3/uL (0.0-1.0); MONOCYTES % (AUTO) 3 % (0-12); NEUTROPHILS # (AUTO) 13.8 10^3/uL (1.8-7.8); NEUTROPHILS % (AUTO) 83 % (42-75); PLATELET COUNT 459 10^3/uL (130-400); WHITE BLOOD COUNT 16.7 10^3/uL (4.3-11.0)
[2020-08-05] VITALS (11 sets, daily range): BP systolic 109–162; BP diastolic 58–93
[2020-08-05] MEDS: PIPERACILLIN/TAZOBACTAM (BULK) 4.5 GM in NS (IVPB) 100 ML IV SCH ×3 (05:16→18:39)
[2020-08-05] MEDS: ACETAMINOPHEN 325 MG TABLET PO PRN ×2 (05:21→21:47)
[2020-08-05 06:54] LABS: BASOPHILS % (AUTO) 0 % (0-10); EOSINOPHILS # (AUTO) 0.2 10^3/uL (0.0-0.3); EOSINOPHILS % (AUTO) 1 % (0-10); HEMATOCRIT 21 % (40-54); LYMPHOCYTES % (AUTO) 11 % (12-44); MEAN CORPUSCULAR HEMOGLOBIN 27 pg (25-34); MEAN CORPUSCULAR HGB CONC 32 g/dL (32-36); MEAN CORPUSCULAR VOLUME 85 fL (80-99); MEAN PLATELET VOLUME 9.5 fL (9.0-12.2); MONOCYTES # (AUTO) 0.6 10^3/uL (0.0-1.0); MONOCYTES % (AUTO) 3 % (0-12); NEUTROPHILS # (AUTO) 14.4 10^3/uL (1.8-7.8); NEUTROPHILS % (AUTO) 81 % (42-75); PLATELET COUNT 494 10^3/uL (130-400); WHITE BLOOD COUNT 17.8 10^3/uL (4.3-11.0)
[2020-08-05 06:57] LABS: HEMOGLOBIN 6.8 g/dL (13.3-17.7)
[2020-08-05 07:00] LABS: POTASSIUM 3.1 MMOL/L (3.6-5.0)
[2020-08-05 07:05] LABS: PHOSPHORUS 2.8 MG/DL (2.3-4.7)
[2020-08-05 07:06] LABS: CREATININE SERUM 1.26 MG/DL (0.60-1.30)
[2020-08-05 07:08] LABS: MAGNESIUM 1.6 MG/DL (1.6-2.4)
[2020-08-05] MEDS ORDERED: NS IV 500 ML 500 ML IV SCH (07:15)
--- NOTE | 2020-08-05 07:15 | NUR ---
dr yañez notified of critical hgb 6.8, ordered 1 unit packed cells
[2020-08-05 07:20] LABS: ANISOCYTOSIS SLIGHT; BAND NEUTROPHILS 0 %; BASOPHILS % (MANUAL) 0 %; EOSINOPHILS % (MANUAL) 2 %; HYPOCHROMASIA SLIGHT; LYMPHOCYTES % (MANUAL) 9 %; MONOCYTES % (MANUAL) 1 %; NEUTROPHILS % (MANUAL) 88 %; POLYCHROMASIA SLIGHT
--- NOTE | 2020-08-05 07:30 | NUR ---
lab called regarding pt blood sugar of 44, pt alert, orange juice and crackers and peanut butter given, will reassess blood sugar
[2020-08-05] MEDS: PANTOPRAZOLE 40 MG (PROTONIX) VIAL IV SCH ×2 (08:38→21:31)
[2020-08-05] MEDS: inSUlin ASPART (NovoLOG) 1 UNIT/0.01 ML (CHARGE PER UNIT) SC SCH ×4 (08:38→21:31)
[2020-08-05] MEDS: VANCOMYCIN 1250 MG/NS 250 ML IVPB IV SCH ×2 (08:46)
[2020-08-05] MEDS ORDERED: NS IV 500 ML 500 ML ONE (09:15)
[2020-08-05] MEDS ORDERED: risperiDONE 1 MG (RisperDAL) TAB PO PRN (10:30)
[2020-08-05] MEDS: FLUCONAZOLE 200 MG/100 ML 100 ML IV SCH (10:47)
--- NOTE | 2020-08-05 11:07 | Progress Note - Hospitalist ---
Subjective HPI/CC On Admission Date Seen by Provider: Aug 05, 2020 Time Seen by Provider: 10:30 Dino Moreau is a 50-year-old male with H insulin-dependent diabetes mellitus, methamphetamine abuse, who presented with altered mental status. He had reportedly been out of his insulin according to his parents. He had been too weak to walk and was incontinent of urine.in the emergency room, he was found to be in diabetic ketoacidosis. At the time of my exam, he is lethargic, uncooperative, and unable to provide any history. Subjective/Events-last exam patient was up last night and after talking with his parents they stated that he had called him around 4 a.m. not sure where he was but asking them to come pick him up. He does not have any recall of this this morning he was sleeping and when I ask him how he was doing he stated that I was doing better than he was. He denied headache chest pain nausea or abdominal pain. Focused Exam Lactate Level 08/04/20 07:00: Lactic Acid Level 1.46 Time of Focused Exam: 00:14 Objective Exam Vital Signs Vital Signs Date Time Temp Pulse Resp B/P (MAP) Pulse Ox O2 Delivery O2 Flow Rate FiO2 08/05/20 10:37 36.8 99 22 131/76 96 Room Air 08/03/20 18:00 2.00 Capillary Refill : Less Than 3 Seconds General Appearance: No Apparent Distress Respiratory: Chest Non Tender, Lungs Clear, Normal Breath Sounds, No Accessory Muscle Use, No Respiratory Distress Cardiovascular: Regular Rate, Rhythm, No Edema, No Gallop, No JVD, No Murmur, Normal Peripheral Pulses Gastrointestinal: Normal Bowel Sounds, No Organomegaly, No Pulsatile Mass, Non Tender, Soft Results/Procedures Lab Laboratory Tests 08/04/20 18:30 08/05/20 06:30 Patient resulted labs reviewed. Imaging: Reviewed Imaging Report Assessment/Plan Assessment and Plan Assess & Plan/Chief Complaint A/P 1. Delirium multifactorial secondary to influenza be MRSA sepsis probable pneumonia etiology/secondary bacterial infection post influenza B slowly improving. I discussed with the family that it was common to get days and nights switched around and further still to be a lot of ups and downs in regards to agitation and orientation. Still cannot rule out the possibility of some per manent brain injury considering the degree of his hyperglycemia and sepsis but that he still had a good chance of getting back to baseline or near baseline. Discussed that he would be extremely weak. While the patient tested positive for methamphetamine family found TheraFlu in his room no evidence for alcohol and no reported known history of drug abuse. This raises the possibility of cross reaction with [id number]-tid-[id number] cold preparations. 2. Influenza B positive which may also be contributing to delirium. 3. Diabetes mellitus with DKA resolved patient experienced some hypoglycemia blood sugar down to 40 units given some juice and peanut butter and crackers. He did not eat crackers but did eat peanut butter and drank the juice. There are still some occasional coughing with liquids the crackers were given inadvertently will continue clear liquid diet for now until delirium clears. As the patient agitation is improved and he is somnolent this morning we will change respiratory down to every 6 hours when necessary 1 mg. Discussed with family that hypoglycemia was likely a positive sign with decreasing stress levels leading to decreasing insulin requirements will decrease basal insulin from 25 units to 15 units. 4. mild hypokalemia we'll replace. 5. Anemia of chronic disease most likely hemoglobin back down to 6.8 we'll give 1 more unit of packed cells no evidence for bleeding. . Critical Care Critically Ill Patient Clinical Quality Measures DVT/VTE Risk/Contraindication: Risk Factor Score Per Nursin RFS Level Per Nursing on Admit: 4+=Very High KHRIS TINEO MD Aug 05, 2020 11:07
--- NOTE | 2020-08-05 11:22 | Progress Note - Cardiology ---
Cardiology SOAP Progress Note Subjective: Lying in bed receiving blood transfusion. States he feels better. Oriented to self. Told me he was in [place]. No c/o CP or dyspnea. Had to awaken frequently during conversation. Objective: I&O/Vital Signs 08/06/20 08/06/20 08/06/20 08/06/20 00:00 01:00 03:56 06:34 Temp 37.0 36.6 Pulse 110 108 102 116 Resp 20 20 B/P (MAP) 114/59 (77) 164/79 (107) Pulse Ox 95 96 O2 Delivery Room Air Room Air 08/06/20 00:00 Intake Total 2785.2 ml Output Total 3200 ml Balance -414.8 ml Constitutional: well-developed, well-nourished Respiratory: chest expansion is symmetric, chest is bilaterally symmetric, other (tachypnea) Cardiovascular: No JVD; tachycardia Gastrointestional: soft, round, audible bowel sounds Extremities: no lower extremity edema bilateral Neurologic/Psychiatric: No oriented x 3 (alert, oriented to self only); other (moves all limbs) Skin: No rash on exposed areas, No ulcerations on exposed areas Results/Procedures: Labs Laboratory Tests 08/05/20 11:37: Glucometer 87 08/05/20 15:34: Glucometer 126H 08/05/20 20:04: Glucometer 209H 08/06/20 05:54: Glucometer 82 08/06/20 08:00: White Blood Count 14.5H, Red Blood Count 3.10L, Hemoglobin 8.3#L, Hematocrit 27L , Mean Corpuscular Volume 86, Mean Corpuscular Hemoglobin 27, Mean Corpuscular Hemoglobin Concent 31L, Red Cell Distribution Width 15.1H, Platelet Count 457H, Mean Platelet Volume 9.5, Immature Granulocyte % (Auto) 2, Neutrophils (%) (Auto) 84H, Lymphocytes (%) (Auto) 9L, Monocytes (%) (Auto) 3, Eosinophils (%) (Auto) 1, Basophils (%) (Auto) 0, Neutrophils # (Auto) 12.1H, Lymphocytes # (Auto) 1.4, Monocytes # (Auto) 0.5, Eosinophils # (Auto) 0.2, Basophils # (Auto) 0.1, Immature Granulocyte # (Auto) 0.3H, Sodium Level 138, Potassium Level 3.4L, Chloride Level 110H, Carbon Dioxide Level 19L, Anion Gap 9, Blood Urea Nitrogen 12, Creatinine 1.18, Estimat Glomerular Filtration Rate > 60, BUN/Creatinine Ratio 10, Glucose Level 103, Calcium Level 7.1L, Phosphorus Level 3.5, Magnesium Level 1.4L, Beta-Hydroxybutyrate (Chem panel) 0.71H Microbiology 07/31/20 Blood Culture - Final, Complete No growth 07/29/20 Gram Stain - Final, Complete 07/29/20 CSF Culture - Final, Complete No growth 07/27/20 MRSA Screen - Final, Complete MRSA not isolated 07/26/20 Urine Culture - Final, Complete NO GROWTH A/P: Assessment: Sepsis of undetermined etiology, managed by the Hospitalist bimal MRSA in cultures - source unknown Encephalopathy - improving AMS - improving Echo of 07/28/20: LVEF 70-75%, normal PASP H/O Methamphetamine abuse (drug screen positive during this hospitalization) Sinus tachycardia - improved DM - DKA (resolved) Influenza B WAN-3, improved Severe anemia of undetermined etiology - management per Medical services Plan: MRSA confirmed in cultures, source undetermined - management per Medical services If no other source is found, then REX when stable and able to provide consent Anemia of undetermined etiology - management per medical services Monitor lab Replace electrolytes as indicated DIVINA LYLES Aug 05, 2020 11:22
[2020-08-05] MEDS ORDERED: KCL 20 MEQ TAB (K-DUR) PO ONE ×2 (11:30→15:00)
[2020-08-05] MEDS: KCL 20 MEQ TAB (K-DUR) PO SCH (11:36)
[2020-08-05] MEDS: THIAMINE INJECTION 100 MG, FOLIC ACID INJECTION 1 MG, VITAMIN MULTI INJECTION 10 ML, MA... IV SCH ×5 (11:53)
--- NOTE | 2020-08-05 13:13 | NUR ---
Pt moves his arms about, kinking up blood adm tubing. Instr to please not bend at the elbow, as to prevent kinking & stoppage of blood administration.
--- NOTE | 2020-08-05 13:25 | NUR ---
Pt restless at times, brings arms up over chest, kinking off blood transfusion. Does bring arm down when asked to, but, shortly thereafter brings arm up again. Pt took sips of water, & apple juice, refused lunch tray.
--- NOTE | 2020-08-05 15:00 | NUR ---
PICC LINE REMOVED ORDERED, CATHETER TIP CUT OFF AND SENT TO LAB FOR CULTURE, IV STARTED IN LEFT HAND WITH #22 TIMES ONE STICK, MARIA E WELL
--- NOTE | 2020-08-05 15:57 | Progress Note - Cardiology ---
Cardiology SOAP Progress Note Subjective: Was confused at time of our rounds this am. Did not report symptoms Objective: I&O/Vital Signs 08/08/20 08/08/20 08/08/20 08/08/20 08:00 08:00 12:00 15:23 Temp 36.9 36.3 37.0 Pulse 108 102 111 Resp 20 20 18 B/P (MAP) 163/87 (112) 166/94 (118) 170/100 (123) Pulse Ox 97 96 96 O2 Delivery Room Air Room Air Room Air Room Air 08/08/20 00:00 Intake Total 2460 ml Balance 2460 ml Constitutional: No AAO x 3; well-developed, well-nourished Respiratory: chest expansion is symmetric, chest is bilaterally symmetric, other (tachypnea) Cardiovascular: No JVD; tachycardia Gastrointestional: soft, round, audible bowel sounds Extremities: no lower extremity edema bilateral Neurologic/Psychiatric: No oriented x 3 (alert, oriented to self only); other (moves all limbs) Skin: No rash on exposed areas, No ulcerations on exposed areas Results/Procedures: Labs Laboratory Tests 08/07/20 21:01: Glucometer 262H 08/08/20 05:20: Sodium Level 137, Potassium Level 3.4L, Chloride Level 106, Carbon Dioxide Level 22, Anion Gap 9, Blood Urea Nitrogen 8, Creatinine 0.93, Estimat Glomerular Filtration Rate > 60, BUN/Creatinine Ratio 9, Glucose Level 83, Calcium Level 7.3L, Vancomycin Level Trough 11.6 08/08/20 05:35: Glucometer 72 08/08/20 11:48: Glucometer 144H 08/08/20 14:02: Lab Scanned Report Transfusion Reaction Form 08/08/20 15:27: Glucometer 366H Microbiology 08/05/20 Catheter Tip Culture - Final, Complete No growth 07/29/20 Gram Stain - Final, Complete 07/29/20 CSF Culture - Final, Complete No growth 07/27/20 MRSA Screen - Final, Complete MRSA not isolated 07/26/20 Urine Culture - Final, Complete NO GROWTH A/P: Assessment: Sepsis of undetermined etiology, managed by the Hospitalist svpeng Hypertension, not well controlled Severe anemia, worsening again after recent transfusion, managed by the Hospitalist / Medical Svce MRSA in cultures - source unknown Encephalopathy - improving AMS - improving Echo of 07/28/20: LVEF 70-75%, normal PASP H/O Methamphetamine abuse (drug screen positive during this hospitalization) Sinus tachycardia - improved DM - DKA (resolved) Influenza B WAN-3, improved Plan: Increase bb to better control bp We recommend blood transfusion (Hospitalist Primary Svce to decide) MRSA confirmed in cultures, source undetermined - management per Medical services If no other source is found, then REX when stable and able to provide consent Monitor lab Replace electrolytes as indicated Physician Assessment Physician Assessment The above note represents a mutual eval of the patient by Terry Perdomo APRN, and me I have updated the note in italics MUNIR CASTANEDA MD FACP FAC CCDS Aug 05, 2020 15:57
[2020-08-05] MEDS: LORazepam INJ 2 MG/ML (ATIVAN) VIAL IVP PRN (21:47)
[2020-08-06] VITALS: BP 114/59
[2020-08-06] MEDS: PIPERACILLIN/TAZOBACTAM (BULK) 4.5 GM in NS (IVPB) 100 ML IV SCH ×2 (03:43→12:09)
[2020-08-06 03:56] VITALS: BP 164/79
[2020-08-06] MEDS: inSUlin ASPART (NovoLOG) 1 UNIT/0.01 ML (CHARGE PER UNIT) SC SCH ×4 (05:56→20:37)
[2020-08-06 08:00] VITALS: BP 175/90
[2020-08-06 08:15] LABS: BASOPHILS # (AUTO) 0.1 10^3/uL (0.0-0.1); BASOPHILS % (AUTO) 0 % (0-10); EOSINOPHILS # (AUTO) 0.2 10^3/uL (0.0-0.3); EOSINOPHILS % (AUTO) 1 % (0-10); HEMATOCRIT 27 % (40-54); HEMOGLOBIN 8.3 g/dL (13.3-17.7); LYMPHOCYTES # (AUTO) 1.4 10^3/uL (1.0-4.0); LYMPHOCYTES % (AUTO) 9 % (12-44); MEAN CORPUSCULAR HEMOGLOBIN 27 pg (25-34); MEAN CORPUSCULAR HGB CONC 31 g/dL (32-36); MEAN CORPUSCULAR VOLUME 86 fL (80-99); MEAN PLATELET VOLUME 9.5 fL (9.0-12.2); MONOCYTES # (AUTO) 0.5 10^3/uL (0.0-1.0); MONOCYTES % (AUTO) 3 % (0-12); NEUTROPHILS # (AUTO) 12.1 10^3/uL (1.8-7.8); NEUTROPHILS % (AUTO) 84 % (42-75); PLATELET COUNT 457 10^3/uL (130-400); WHITE BLOOD COUNT 14.5 10^3/uL (4.3-11.0)
[2020-08-06] MEDS: THIAMINE INJECTION 100 MG, FOLIC ACID INJECTION 1 MG, VITAMIN MULTI INJECTION 10 ML, MA... IV SCH ×5 (08:22)
[2020-08-06] MEDS: VANCOMYCIN 1250 MG/NS 250 ML IVPB IV SCH ×2 (08:22)
[2020-08-06] MEDS: PANTOPRAZOLE 40 MG (PROTONIX) VIAL IV SCH ×2 (08:25→20:36)
[2020-08-06 08:34] LABS: BUN/CREATININE RATIO 10; CALCIUM 7.1 MG/DL (8.5-10.1); CARBON DIOXIDE 19 MMOL/L (21-32); CHLORIDE 110 MMOL/L (98-107); CREATININE SERUM 1.18 MG/DL (0.60-1.30); GFR ESTIMATED > 60; GLUCOSE 103 MG/DL (70-105); MAGNESIUM 1.4 MG/DL (1.6-2.4); PHOSPHORUS 3.5 MG/DL (2.3-4.7); POTASSIUM 3.4 MMOL/L (3.6-5.0); SODIUM 138 MMOL/L (135-145)
--- NOTE | 2020-08-06 09:29 | Progress Note - Cardiology ---
Cardiology SOAP Progress Note Subjective: Lying in bed. Moving around frequently. States he feels unwell all over and has been better. He denies any c/o CP or SOB. 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 Nursing staff reports he keeps pulling his telemetry off. Objective: I&O/Vital Signs 08/07/20 08/07/20 00:00 04:00 Temp 36.7 36.6 Pulse 98 104 Resp 20 20 B/P (MAP) 129/71 (90) 168/89 (115) Pulse Ox 94 95 O2 Delivery Room Air Room Air 08/07/20 00:00 Intake Total 1480 ml Balance 1480 ml Constitutional: No AAO x 3; well-developed, well-nourished Respiratory: No accessory muscle use, No respiratory distress; chest expansion is symmetric, chest is bilaterally symmetric, lungs clear to auscultation Cardiovascular: No JVD; tachycardia Gastrointestional: soft, round, audible bowel sounds Extremities: no lower extremity edema bilateral Neurologic/Psychiatric: oriented x 3 (alert, oriented to self and place), other (moves all limbs) Skin: No rash on exposed areas, No ulcerations on exposed areas Results/Procedures: Labs Laboratory Tests 08/06/20 11:23: Glucometer 249H 08/06/20 16:07: Glucometer 186H 08/06/20 19:58: Glucometer 303H 08/07/20 05:19: White Blood Count 12.4H, Red Blood Count 3.06L, Hemoglobin 8.3L, Hematocrit 27L, Mean Corpuscular Volume 87, Mean Corpuscular Hemoglobin 27, Mean Corpuscular Hemoglobin Concent 31L, Red Cell Distribution Width 15.0H, Platelet Count 499H, Mean Platelet Volume 9.9, Immature Granulocyte % (Auto) 2, Neutrophils (%) (Auto) 81H, Lymphocytes (%) (Auto) 11L, Monocytes (%) (Auto) 4, Eosinophils (%) (Auto) 1, Basophils (%) (Auto) 0, Neutrophils # (Auto) 10.1H, Lymphocytes # (Auto) 1.4, Monocytes # (Auto) 0.5, Eosinophils # (Auto) 0.2, Basophils # (Auto) 0.1, Immature Granulocyte # (Auto) 0.2H, Sodium Level 137, Potassium Level 3.1L, Chloride Level 106, Carbon Dioxide Level 18L, Anion Gap 13, Blood Urea Nitrogen 12, Creatinine 1.06, Estimat Glomerular Filtration Rate > 60, BUN/Creatinine Ratio 11, Glucose Level 59*L, Calcium Level 7.2L, Beta-Hydroxybutyrate (Chem panel) 0.03 08/07/20 05:27: Glucometer 66L 08/07/20 08:47: Glucometer 112H 08/07/20 09:50: Microbiology 07/31/20 Blood Culture - Final, Complete No growth 07/29/20 Gram Stain - Final, Complete 07/29/20 CSF Culture - Final, Complete No growth 07/27/20 MRSA Screen - Final, Complete MRSA not isolated 07/26/20 Urine Culture - Final, Complete NO GROWTH A/P: Assessment: Sepsis of undetermined etiology, managed by the Hospitalist svce Severe anemia, managed by the Hospitalist / Medical Svce MRSA in cultures - source unknown Encephalopathy - improving AMS - improving Echo of 07/28/20: LVEF 70-75%, normal PASP H/O Methamphetamine abuse (drug screen positive during this hospitalization) Sinus tachycardia - improved DM - DKA (resolved) Influenza B WAN-3, improved Plan: Blood transfusions as per Hospitalist Primary Svce to decide - H/H improved Source of anemia undetermined - occult stool ordered MRSA confirmed in cultures, source undetermined (PICC line dc'd with tip sent fo r culture) - management per Medical services If no other source is found, then REX when stable and able to provide consent Monitor lab Replace electrolytes as indicated DIVINA LYLES Aug 06, 2020 09:29
[2020-08-06] MEDS ORDERED: KCL 20 MEQ TAB (K-DUR) PO NR (10:30)
[2020-08-06] MEDS: FLUCONAZOLE 200 MG/100 ML 100 ML IV SCH (11:02)
[2020-08-06] MEDS: MAGNESIUM 1 GM/100 ML IVPB 100 ML IV SCH ×2 (11:02→12:02)
[2020-08-06] MEDS: KCL 20 MEQ TAB (K-DUR) PO SCH (11:03)
[2020-08-06 12:00] VITALS: BP 159/88
--- NOTE | 2020-08-06 14:33 | Progress Note - Cardiology ---
Cardiology SOAP Progress Note Subjective: Reports tiredness and malaise No cp or palp or syncope No shortness of breath Vague in answering questions Objective: I&O/Vital Signs 08/06/20 08/06/20 08/06/20 08/06/20 03:56 06:34 08:00 08:00 Temp 36.6 37.2 Pulse 102 116 118 Resp 20 20 B/P (MAP) 164/79 (107) 175/90 (118) Pulse Ox 96 99 94 O2 Delivery Room Air Room Air Room Air 08/06/20 12:00 Temp 36.9 Pulse 111 Resp 20 B/P (MAP) 159/88 (111) Pulse Ox 99 O2 Delivery Room Air 08/06/20 00:00 Intake Total 2785.2 ml Output Total 3200 ml Balance -414.8 ml Constitutional: No AAO x 3; well-developed, well-nourished Respiratory: No accessory muscle use, No respiratory distress; chest expansion is symmetric, chest is bilaterally symmetric, lungs clear to auscultation Cardiovascular: No JVD; tachycardia Gastrointestional: soft, round, audible bowel sounds Extremities: no lower extremity edema bilateral Neurologic/Psychiatric: oriented x 3 (alert, oriented to self and place), other (moves all limbs) Skin: No rash on exposed areas, No ulcerations on exposed areas Results/Procedures: Labs Laboratory Tests 08/05/20 15:34: Glucometer 126H 08/05/20 20:04: Glucometer 209H 08/06/20 05:54: Glucometer 82 08/06/20 08:00: White Blood Count 14.5H, Red Blood Count 3.10L, Hemoglobin 8.3#L, Hematocrit 27L , Mean Corpuscular Volume 86, Mean Corpuscular Hemoglobin 27, Mean Corpuscular Hemoglobin Concent 31L, Red Cell Distribution Width 15.1H, Platelet Count 457H, Mean Platelet Volume 9.5, Immature Granulocyte % (Auto) 2, Neutrophils (%) (Auto) 84H, Lymphocytes (%) (Auto) 9L, Monocytes (%) (Auto) 3, Eosinophils (%) (Auto) 1, Basophils (%) (Auto) 0, Neutrophils # (Auto) 12.1H, Lymphocytes # (Auto) 1.4, Monocytes # (Auto) 0.5, Eosinophils # (Auto) 0.2, Basophils # (Auto) 0.1, Immature Granulocyte # (Auto) 0.3H, Sodium Level 138, Potassium Level 3.4L, Chloride Level 110H, Carbon Dioxide Level 19L, Anion Gap 9, Blood Urea Nitrogen 12, Creatinine 1.18, Estimat Glomerular Filtration Rate > 60, BUN/Creatinine Ratio 10, Glucose Level 103, Calcium Level 7.1L, Phosphorus Level 3.5, Magnesium Level 1.4L, Beta-Hydroxybutyrate (Chem panel) 0.71H 08/06/20 11:23: Glucometer 249H Microbiology 07/31/20 Blood Culture - Final, Complete No growth 07/29/20 Gram Stain - Final, Complete 07/29/20 CSF Culture - Final, Complete No growth 07/27/20 MRSA Screen - Final, Complete MRSA not isolated 07/26/20 Urine Culture - Final, Complete NO GROWTH Laboratory Tests 08/04/20 18:30 08/05/20 06:30 08/06/20 08:00 A/P: Assessment: Sepsis of undetermined etiology, managed by the Hospitalist svce Severe anemia, managed by the Hospitalist / Medical Svce MRSA in cultures - source unknown Encephalopathy - improving AMS - improving Echo of 07/28/20: LVEF 70-75%, normal PASP H/O Methamphetamine abuse (drug screen positive during this hospitalization) Sinus tachycardia - improved DM - DKA (resolved) Influenza B WAN-3, improved Plan: Blood transfusions as per Hospitalist Primary Svce to decide - H/H improved Source of anemia undetermined - occult stool ordered MRSA confirmed in cultures, source undetermined (PICC line dc'd with tip sent for culture) - management per Medical services If no other source is found, then REX when stable and able to provide consent Monitor lab Replace electrolytes as indicated MUNIR CASTANEDA MD FACP FAC CCDS Aug 06, 2020 14:33
[2020-08-06 16:02] VITALS: BP 135/80
[2020-08-06 19:52] VITALS: BP 150/81
[2020-08-06] MEDS: ACETAMINOPHEN 325 MG TABLET PO PRN (20:42)
--- NOTE | 2020-08-06 21:17 | Progress Note - Hospitalist ---
Subjective HPI/CC On Admission Date Seen by Provider: Aug 06, 2020 Time Seen by Provider: 10:30 Dino Moreau is a 50-year-old male with PMH insulin-dependent diabetes mellitus, methamphetamine abuse, who presented with altered mental status. He had reportedly been out of his insulin according to his parents. He had been too weak to walk and was incontinent of urine.in the emergency room, he was found to be in diabetic ketoacidosis. At the time of my exam, he is lethargic, uncooperative, and unable to provide any history. Subjective/Events-last exam Pt seen today Can answer some questions but now he is sleeping No pain is reported Sent central line for cath-tip culture Very profound debility with delirium Review of Systems General: Fatigue Neurological: Confusion Focused Exam Lactate Level 08/04/20 07:00: Lactic Acid Level 1.46 Time of Focused Exam: 00:14 Objective Exam Vital Signs Vital Signs Date Time Temp Pulse Resp B/P (MAP) Pulse Ox O2 Delivery O2 Flow Rate FiO2 08/06/20 19:52 37.2 118 18 150/81 (104) 93 Room Air 08/03/20 18:00 2.00 Capillary Refill : Less Than 3 Seconds General Appearance: WD/WN, Chronically ill, Mild Distress Respiratory: Lungs Clear, Normal Breath Sounds Cardiovascular: Regular Rate, Rhythm Neurologic/Psychiatric: Disoriented Results/Procedures Lab Laboratory Tests 08/06/20 08:00 Patient resulted labs reviewed. Imaging: Reviewed Imaging Report Assessment/Plan Assessment and Plan Assess & Plan/Chief Complaint Assessment: s/p DKA s/p Shock AMS needs neuro evaluation Meth use Long h/o etohism Staph bacteremia Plan: Supportive care Inquire with [facility] and [facility] empirically Dr Jessie aleman on admit: Diabetic ketoacidosis High anion gap metabolic acidosis Hyperkalemia Hyponatremia Blood sugar >1400 on arrival anion gap elevated Sodium 113, corrects to 134 Potassium mildly elevated Started on DKA protocol Insulin GTT IV fluids admitted to ICU Septic shock Gram positive cocci bacteremia Influenza B infection Acute kidney injury Febrile and tachycardic on arrival procalcitonin 72 creatinine 2.39 on arrival, improving this morning, unknown baseline Chest x-ray with no acute abnormalities UA not indicative of UTI Blood cultures positive for gram-positive cocci, likely staph aureus await final culture and sensitivity results Vancomycin and cefepime influenza B+ Tamiflu COVID RODRIGO negative, PCR pending Methamphetamine abuse Possible source of bacteremia recommend cessation Social work consult DVT Prophylaxis: Lovenox Critical Care Critically Ill Patient Clinical Quality Measures DVT/VTE Risk/Contraindication: Risk Factor Score Per Nursin RFS Level Per Nursing on Admit: 4+=Very High CLAUDY WISE DO Aug 06, 2020 21:17
[2020-08-07] VITALS: BP 129/71
--- NOTE | 2020-08-07 00:05 | NUR ---
Patient requested to take a shower. An CONCEPCION and this RN got patient into the shower. Patient cleaned himself independently. Linens changed and patient returned to bed with no complications. Patient tolerated shower well.
[2020-08-07] MEDS: LORazepam INJ 2 MG/ML (ATIVAN) VIAL IVP PRN ×2 (01:12→21:52)
[2020-08-07 04:00] VITALS: BP 168/89
[2020-08-07] MEDS: KCL 20 MEQ TAB (K-DUR) PO SCH (05:42)
[2020-08-07] MEDS: inSUlin ASPART (NovoLOG) 1 UNIT/0.01 ML (CHARGE PER UNIT) SC SCH ×4 (05:46→21:55)
--- NOTE | 2020-08-07 05:46 | Progress Note - Hospitalist ---
Subjective HPI/CC On Admission Date Seen by Provider: Aug 07, 2020 Time Seen by Provider: 10:30 Dino Moreau is a 50-year-old male with PMH insulin-dependent diabetes mellitus, methamphetamine abuse, who presented with altered mental status. He had reportedly been out of his insulin according to his parents. He had been too weak to walk and was incontinent of urine.in the emergency room, he was found to be in diabetic ketoacidosis. At the time of my exam, he is lethargic, uncooperative, and unable to provide any history. Subjective/Events-last exam Patient seen by Dr Osorio Plan for DC tomorrow per Dr Osorio with family Patient more lucid and seems to be improved Review of Systems General: Fatigue, Malaise Neurological: Confusion Focused Exam Lactate Level Time of Focused Exam: 00:14 Objective Exam Vital Signs Vital Signs Date Time Temp Pulse Resp B/P (MAP) Pulse Ox O2 Delivery O2 Flow Rate FiO2 08/08/20 04:02 37.2 100 20 149/81 (103) 98 Room Air 08/03/20 18:00 2.00 Capillary Refill : Less Than 3 Seconds General Appearance: No Apparent Distress, WD/WN, Chronically ill Respiratory: Lungs Clear Cardiovascular: Regular Rate, Rhythm Results/Procedures Lab Patient resulted labs reviewed. Imaging: Reviewed Imaging Report Assessment/Plan Assessment and Plan Assess & Plan/Chief Complaint Assessment: s/p DKA s/p Shock AMS needs neuro evaluation Meth use Long h/o etohism Staph bacteremia Plan: Supportive care Inquire with [facility] and [facility] empirically Dr Jessie aleman on admit: Diabetic ketoacidosis High anion gap metabolic acidosis Hyperkalemia Hyponatremia Blood sugar >1400 on arrival anion gap elevated Sodium 113, corrects to 134 Potassium mildly elevated Started on DKA protocol Insulin GTT IV fluids admitted to ICU Septic shock Gram positive cocci bacteremia Influenza B infection Acute kidney injury Febrile and tachycardic on arrival procalcitonin 72 creatinine 2.39 on arrival, improving this morning, unknown baseline Chest x-ray with no acute abnormalities UA not indicative of UTI Blood cultures positive for gram-positive cocci, likely staph aureus await final culture and sensitivity results Vancomycin and cefepime influenza B+ Tamiflu COVID RODRIGO negative, PCR pending Methamphetamine abuse Possible source of bacteremia recommend cessation Social work consult DVT Prophylaxis: Lovenox DC home Tuesday per Dr Osorio Critical Care Critically Ill Patient Clinical Quality Measures DVT/VTE Risk/Contraindication: Risk Factor Score Per Nursin RFS Level Per Nursing on Admit: 4+=Very High CLAUDY WISE DO Aug 07, 2020 05:46
[2020-08-07] MEDS: THIAMINE INJECTION 100 MG, FOLIC ACID INJECTION 1 MG, VITAMIN MULTI INJECTION 10 ML, MA... IV SCH ×5 (07:55)
[2020-08-07 08:00] VITALS: BP 165/94
[2020-08-07 09:20] LABS: BASOPHILS # (AUTO) 0.1 10^3/uL (0.0-0.1); BASOPHILS % (AUTO) 0 % (0-10); EOSINOPHILS # (AUTO) 0.2 10^3/uL (0.0-0.3); EOSINOPHILS % (AUTO) 1 % (0-10); HEMATOCRIT 27 % (40-54); HEMOGLOBIN 8.3 g/dL (13.3-17.7); LYMPHOCYTES # (AUTO) 1.4 10^3/uL (1.0-4.0); LYMPHOCYTES % (AUTO) 11 % (12-44); MEAN CORPUSCULAR HEMOGLOBIN 27 pg (25-34); MEAN CORPUSCULAR HGB CONC 31 g/dL (32-36); MEAN CORPUSCULAR VOLUME 87 fL (80-99); MEAN PLATELET VOLUME 9.9 fL (9.0-12.2); MONOCYTES # (AUTO) 0.5 10^3/uL (0.0-1.0); MONOCYTES % (AUTO) 4 % (0-12); NEUTROPHILS # (AUTO) 10.1 10^3/uL (1.8-7.8); NEUTROPHILS % (AUTO) 81 % (42-75); PLATELET COUNT 499 10^3/uL (130-400); WHITE BLOOD COUNT 12.4 10^3/uL (4.3-11.0)
[2020-08-07 09:21] LABS: BUN/CREATININE RATIO 11; CALCIUM 7.2 MG/DL (8.5-10.1); CARBON DIOXIDE 18 MMOL/L (21-32); CHLORIDE 106 MMOL/L (98-107); CREATININE SERUM 1.06 MG/DL (0.60-1.30); GFR ESTIMATED > 60; POTASSIUM 3.1 MMOL/L (3.6-5.0); SODIUM 137 MMOL/L (135-145)
[2020-08-07] MEDS: VANCOMYCIN 1250 MG/NS 250 ML IVPB IV SCH ×2 (09:31)
--- NOTE | 2020-08-07 09:37 | Physical Therapy Evaluation ---
PT Evaluation-General Medical Diagnosis Admission Date Jul 27, 2020 at 00:10 Medical Diagnosis: DKA/meth use/ intoxication Onset Date: Jul 26, 2020 Therapy Diagnosis Therapy Diagnosis: generalized weakness/debility Precautions Precautions/Isolations: Fall Prevention, Standard Precautions Referral Physician: Devon Reason for Referral: Evaluation/Treatment Medical History Pertinent Medical History: DM Additional Medical History meth use Current History ER via parents due to AMS, inability to ambulate and incontinence Reviewed History: Yes Social History Home: Single Level Prior Prior Level of Function SCALE: Activities may be completed with or without assistive devices. 6-Ntaiorppph-sjtozxe completes the activity by him/herself with no assistance from a helper. 5-Set-up or Clean-up Assistance-helper sets up or cleans up; patient completes activity. [place] assists only prior to or following the activity. 4-Supervision or Touching Assistance-helper provides verbal cues and/or touching/steadying and/or contact guard assistance as patient completes activity. Assistance may be provided throughout the activity or intermittently. 3-Partial/Moderate Assistance-helper does LESS THAN HALF the effort. [place] lifts, holds or supports trunk or limbs, but provides less than half the effort. 2-Substantial/Maximal Assistance-helper does MORE THAN HALF the effort. [place] lifts or holds trunk or limbs and provides more than half the effort. 3-Rvvkmjdus-uinqqs does ALL the effort. Patient does none of the effort to complete the activity. Or, the assistance of 2 or more helpers is required for the patient to complete the activity. If activity was not attempted, code reason: 7-Patient Refused. 9-Not Applicable-not attempted and the patient did not perform the activity before the current illness, exacerbation or injury. 10-Not Attempted due to Environmental Limitations-(lack of equipment, weather restraints, etc.). 88-Not Attempted due to Medical Conditions or Safety Concerns. Bed Mobility: 6 Transfers (B,C,W/C): 6 Gait: 6 Stairs: 6 Indoor Mobility (Ambulation): Independent Stairs: Independent Prior Devices Use: None PT Evaluation-Current Subjective Patient agrees to PT. Objective Patient Orientation: Person, Time, Situation Attachments: IV ROM/Strength ROM Lower Extremities bilateral LE WFL Strength Lower Extremities 3/5 grossly bilateral LE Integumentary/Posture Integumentary refer to nursing notes Bowel Incontinence: No Bladder Incontinence: No Posture WFL Neuromuscular (Tone, Coordination, Reflexes) diminished coordination due to weakness/deconditioned state Sensory Vision: Functional Hearing: Functional Transfers Roll Left to Right (QC): 6 Sit to Lying (QC): 6 Lying to Sitting/Side of Bed(Q: 6 Sit to Stand (QC): 3 Chair/Sfr-ie-Jsqir Xfer(QC): 3 Toilet Transfer (QC): 3 PT assist cleansing after BM Gait Does the Patient Walk?: Yes Mode of Locomotion: Walk Anticipated Mode of Locomotion: Walk Walk 10 feet (QC): 2 Walk 50 ft with 2 Turns(QC): 2 Walk 150 ft (QC): 88 Gait Assistive Device: FWW Comments/Gait Description VC's for body placement in FWW/slow marian Balance Sitting Static: Normal Sitting Dynamic: Normal Standing Static: Fair Standing Dynamic: Fair Assessment/Needs 50 y.o. male, will benefit from skilled PT to address functional strength and mobility to improve current LOF to safely return to independent PLOF. Rehab Potential: Fair Post Rehab Potential-Barriers: compliance PT Associate Professor Of History Goals Associate Professor Of History Goals PT Care Home Goals Time Frame: Aug 16, 2020 Roll Left & Right (QC): 6 Sit to Lying (QC): 6 Lying-Sitting on Side/Bed(QC): 6 Sit to Stand (QC): 6 Chair/Icx-sv-Lxois Xfer(QC): 6 Toilet Transfer (QC): 6 Does the Patient Walk: Yes Walk 10 feet (QC): 6 Walk 50ft with 2 Turns (QC): 6 Walk 150 ft (QC): 6 PT Plan Problem List Problem List: Activity Tolerance, Functional Strength, Safety, Balance, Gait, Transfer Treatment/Plan Treatment Plan: Continue Plan of Care Treatment Plan: Bed Mobility, Education, Functional Activity Kandis, Functional Strength, Gait, Safety, Therapeutic Exercise, Transfers Treatment Duration: Aug 16, 2020 Frequency: 6 times per week Estimated Hrs Per Day: .25 hour per day Patient and/or Family Agrees t: Yes Discharge Recommendations Therapy Discharge Recommendati: Home & Family Time/GCodes Time In: 855 Time Out: 920 Total Billed Treatment Time: 25 Total Billed Treatment 1 visit EVModC 15 min FA 10 min FAWN RUIZ PT Aug 07, 2020 09:37
[2020-08-07 09:39] LABS: GLUCOSE 59 MG/DL (70-105)
[2020-08-07] MEDS: FLUCONAZOLE 200 MG/100 ML 100 ML IV SCH (09:42)
[2020-08-07] MEDS: PANTOPRAZOLE 40 MG (PROTONIX) VIAL IV SCH ×2 (09:42→21:47)
[2020-08-07] MEDS ORDERED: KCL 20 MEQ TAB (K-DUR) PO NR (09:45)
[2020-08-07] MEDS ORDERED: meTOproloL SUCCINATE 50 MG (TOPROL XL) TAB PO NR (09:45)
--- NOTE | 2020-08-07 10:04 | Progress Note - Cardiology ---
Cardiology SOAP Progress Note Subjective: More alert today and conversation more appropriate. States he has had a h/o mini-stroke in the past d/t a blockage, but he doesn't recall any other details. States he was on Plavix and a BP pill. Reports he has seen a overedger at [facility] in [place], but does not recall the name. No c/o CP, SOB. Objective: I&O/Vital Signs 08/07/20 08/07/20 04:00 08:00 Temp 36.6 36.8 Pulse 104 109 Resp 20 20 B/P (MAP) 168/89 (115) 165/94 (117) Pulse Ox 95 95 O2 Delivery Room Air Room Air 08/07/20 00:00 Intake Total 1480 ml Balance 1480 ml Constitutional: No AAO x 3 (oreinted to self and place); well-developed, well- nourished Respiratory: No accessory muscle use, No respiratory distress; chest expansion is symmetric, chest is bilaterally symmetric, lungs clear to auscultation Cardiovascular: No JVD; tachycardia Gastrointestional: soft, round, audible bowel sounds Extremities: no lower extremity edema bilateral Neurologic/Psychiatric: oriented x 3 (alert, oriented to self and place), other (moves all limbs) Skin: No rash on exposed areas, No ulcerations on exposed areas Results/Procedures: Labs Laboratory Tests 08/06/20 16:07: Glucometer 186H 08/06/20 19:58: Glucometer 303H 08/07/20 05:19: White Blood Count 12.4H, Red Blood Count 3.06L, Hemoglobin 8.3L, Hematocrit 27L, Mean Corpuscular Volume 87, Mean Corpuscular Hemoglobin 27, Mean Corpuscular Hemoglobin Concent 31L, Red Cell Distribution Width 15.0H, Platelet Count 499H, Mean Platelet Volume 9.9, Immature Granulocyte % (Auto) 2, Neutrophils (%) (Auto) 81H, Lymphocytes (%) (Auto) 11L, Monocytes (%) (Auto) 4, Eosinophils (%) (Auto) 1, Basophils (%) (Auto) 0, Neutrophils # (Auto) 10.1H, Lymphocytes # (Auto) 1.4, Monocytes # (Auto) 0.5, Eosinophils # (Auto) 0.2, Basophils # (Auto) 0.1, Immature Granulocyte # (Auto) 0.2H, Sodium Level 137, Potassium Level 3.1L, Chloride Level 106, Carbon Dioxide Level 18L, Anion Gap 13, Blood Urea Nitrogen 12, Creatinine 1.06, Estimat Glomerular Filtration Rate > 60, BUN/Creatinine Ratio 11, Glucose Level 59*L, Calcium Level 7.2L, Beta-Hydroxybutyrate (Chem panel) 0.03 08/07/20 05:27: Glucometer 66L 08/07/20 08:47: Glucometer 112H 08/07/20 09:50: Stool Occult Blood Immunoassay NEGATIVE 08/07/20 11:51: Glucometer 246H Microbiology 08/05/20 Catheter Tip Culture - Preliminary, Resulted Culture In Progress 07/29/20 Gram Stain - Final, Complete 07/29/20 CSF Culture - Final, Complete No growth 07/27/20 MRSA Screen - Final, Complete MRSA not isolated 07/26/20 Urine Culture - Final, Complete NO GROWTH Laboratory Tests 08/06/20 08:00 08/07/20 05:19 A/P: Assessment: Sepsis of undetermined etiology, managed by the Hospitalist svce Severe anemia, managed by the Hospitalist / Medical Svce MRSA in cultures - source unknown Encephalopathy - improving AMS - improving Echo of 07/28/20: LVEF 70-75%, normal PASP H/O Methamphetamine abuse (drug screen positive during this hospitalization) Sinus tachycardia - improved DM - DKA (resolved) Influenza B WAN-3, improved Reports h/o HTN Reports h/o CVA/TIA several yrs ago Plan: Blood transfusions as per Hospitalist Primary Svce to decide - H/H improved Source of anemia undetermined - occult stool ordered MRSA confirmed in cultures, source undetermined (PICC line dc'd with tip sent for culture) - management per Medical services If no other source is found, then REX when stable and able to provide consent BP and HR not well controlled, we will add Toprol XL We will request records from [facility] We advise ASA, low dose, d/t reported h/o CVA/TIA if ok with Medical services Monitor lab Replace electrolytes as indicated Physician Assessment Physician Assessment The above is a report the mutual evaluation of the patient by Terry Perdomo APRN, and me I have updated the note at shown in italics DIVINA PERDOMO ETHNOLOGY TEACHER Aug 07, 2020 10:04 MUNIR CASTANEDA MD FACP FACC CCDS Aug 07, 2020 12:27
[2020-08-07 12:00] VITALS: BP 142/78
[2020-08-07] MEDS ORDERED: ASPIRIN 81 MG CHEW (CHILDREN'S ASA) PO ONE (12:15)
--- NOTE | 2020-08-07 14:51 | NUR ---
request for medical information signed and faxed.
[2020-08-07 19:29] VITALS: BP 173/83
[2020-08-07] MEDS: ACETAMINOPHEN 325 MG TABLET PO PRN (21:52)
[2020-08-07 23:09] VITALS: BP 138/67
[2020-08-08] MEDS: LORazepam INJ 2 MG/ML (ATIVAN) VIAL IVP PRN (02:20)
[2020-08-08 04:02] VITALS: BP 149/81
[2020-08-08] MEDS: inSUlin ASPART (NovoLOG) 1 UNIT/0.01 ML (CHARGE PER UNIT) SC SCH ×4 (06:03→21:45)
[2020-08-08 06:36] LABS: CHLORIDE 106 MMOL/L (98-107); POTASSIUM 3.4 MMOL/L (3.6-5.0); SODIUM 137 MMOL/L (135-145)
[2020-08-08 06:37] LABS: CALCIUM 7.3 MG/DL (8.5-10.1); GLUCOSE 83 MG/DL (70-105)
[2020-08-08 06:39] LABS: CARBON DIOXIDE 22 MMOL/L (21-32)
[2020-08-08 06:41] LABS: CREATININE SERUM 0.93 MG/DL (0.60-1.30); GFR ESTIMATED > 60
[2020-08-08 06:42] LABS: BUN/CREATININE RATIO 9
[2020-08-08] MEDS ORDERED: KCL 20 MEQ TAB (K-DUR) PO NR (06:45)
[2020-08-08] MEDS: KCL 20 MEQ TAB (K-DUR) PO SCH (06:55)
[2020-08-08] MEDS ORDERED: TROUGH ORDER-PHARMACY XX ONE (07:00)
[2020-08-08 08:00] VITALS: BP 163/87
[2020-08-08] MEDS: VANCOMYCIN 1250 MG/NS 250 ML IVPB IV SCH ×2 (08:01)
[2020-08-08] MEDS: PANTOPRAZOLE 40 MG (PROTONIX) VIAL IV SCH ×2 (08:01→21:44)
[2020-08-08] MEDS: FLUCONAZOLE 200 MG/100 ML 100 ML IV SCH (08:01)
--- NOTE | 2020-08-08 08:01 | NUR ---
PTD VANCOMYCIN LABS: SCR 0.93 VANCOMYCIN LEVEL 11.6 CULTURES: MRSA BLOOD X 2 ANTIBIOTICS: VANCOMYCIN DAY 14 (DAY 12 POST NEGATIVE BLOOD CULTURES) PLAN: WILL GIVE AN EXTRA VANCOMYCIN 500MG IV X 1 THIS AM (SCHEDULED AFTER VANCOMYCIN 1,250MG IV) FOR A TOTAL DOSE OF 1,750MG IV TODAY, WILL THEN SCHEDULE VANCOMYCIN 1,500MG IV DAILY @ 0800 STARTING ON 08/09. WILL REPEAT A TROUGH LEVEL NEXT WEEK.
[2020-08-08] MEDS: ASPIRIN 81 MG CHEW (CHILDREN'S ASA) PO SCH (08:02)
[2020-08-08] MEDS ORDERED: meTOproloL SUCCINATE 50 MG (TOPROL XL) TAB PO SCH (09:00)
[2020-08-08] MEDS ORDERED: VANCOMYCIN 500 MG/NS 100 ML IV NR ×2 (09:30)
--- NOTE | 2020-08-08 10:30 | NUR ---
Report from Crista CONCEPCION, will assume care of patient at this time.
[2020-08-08] MEDS ORDERED: meTOproloL SUCCINATE 50 MG (TOPROL XL) TAB PO NR (11:00)
--- NOTE | 2020-08-08 11:00 | Progress Note - Cardiology ---
Cardiology SOAP Progress Note Subjective: Lying in bed. No c/o CP or dyspnea. States he feels fine. He appears to be irritable this morning, answering questions briefly in a raised voice. Objective: I&O/Vital Signs 08/07/20 08/08/20 08/08/20 08/08/20 23:09 04:02 08:00 08:00 Temp 37.4 37.2 36.9 Pulse 108 100 108 Resp B/P (MAP) 138/67 (90) 149/81 (103) 163/87 (112) Pulse Ox 99 98 97 O2 Delivery Room Air Room Air Room Air Room Air 08/08/20 00:00 Intake Total 2460 ml Balance 2460 ml Constitutional: No AAO x 3 (oreinted to self and place); well-developed, well-nourished Respiratory: No accessory muscle use, No respiratory distress; chest expansion is symmetric, chest is bilaterally symmetric, lungs clear to auscultation Cardiovascular: No JVD; tachycardia Gastrointestional: soft, round, audible bowel sounds Extremities: no lower extremity edema bilateral Neurologic/Psychiatric: oriented x 3 (alert, oriented to self and place), other (moves all limbs) Skin: No rash on exposed areas, No ulcerations on exposed areas Results/Procedures: Labs Laboratory Tests 08/07/20 11:51: Glucometer 246H 08/07/20 15:43: Glucometer 278H 08/07/20 21:01: Glucometer 262H 08/08/20 05:20: Sodium Level 137, Potassium Level 3.4L, Chloride Level 106, Carbon Dioxide Level 22, Anion Gap 9, Blood Urea Nitrogen 8, Creatinine 0.93, Estimat Glomerular Filtration Rate > 60, BUN/Creatinine Ratio 9, Glucose Level 83, Calcium Level 7.3L, Vancomycin Level Trough 11.6 08/08/20 05:35: Glucometer 72 Microbiology 08/05/20 Catheter Tip Culture - Preliminary, Resulted Culture In Progress 07/29/20 Gram Stain - Final, Complete 07/29/20 CSF Culture - Final, Complete No growth 07/27/20 MRSA Screen - Final, Complete MRSA not isolated 07/26/20 Urine Culture - Final, Complete NO GROWTH Laboratory Tests 08/07/20 05:19 08/08/20 05:20 A/P: Assessment: Sepsis of undetermined etiology, managed by the Hospitalist svce Severe anemia, managed by the Hospitalist / Medical Svce MRSA in cultures - source unknown Encephalopathy - improving AMS - improving Echo of 07/28/20: LVEF 70-75%, normal PASP H/O Methamphetamine abuse (drug screen positive during this hospitalization) Sinus tachycardia - improved DM - DKA (resolved) Influenza B WAN-3, improved Reports h/o HTN Reports h/o CVA/TIA several yrs ago Plan: Blood transfusions as per Hospitalist Primary Svce to decide - H/H improved Source of anemia undetermined - occult stool ordered - occult negative on 08-08-2020 MRSA confirmed in cultures, source undetermined (PICC line dc'd with tip sent for culture) - management per Medical services If no other source is found, then REX when stable and able to provide consent BP and HR not well controlled, we will increase Toprol XL We will request records from [place] - have not received yet We advise ASA, low dose, d/t reported h/o CVA/TIA if ok with Medical services Monitor lab Replace electrolytes as indicated DIVINA LYLES Aug 08, 2020 11:00
--- NOTE | 2020-08-08 11:31 | Physical Therapy Daily Note ---
PT Daily Note-Current Subjective Patient appears lethargic,however, does respond when spoken to. Appearance naked in bed with bilateral LE hanging over the end of the bed Mental Status Patient Orientation: Confused Attachments: IV Transfers SCALE: Activities may be completed with or without assistive devices. 8-Assuqkdxsa-bytvmve completes the activity by him/herself with no assistance from a helper. 5-Set-up or Clean-up Assistance-helper sets up or cleans up; patient completes activity. [place] assists only prior to or following the activity. 4-Supervision or Touching Assistance-helper provides verbal cues and/or touching/steadying and/or contact guard assistance as patient completes activity. Assistance may be provided throughout the activity or intermittently. 3-Partial/Moderate Assistance-helper does LESS THAN HALF the effort. [place] lifts, holds or supports trunk or limbs, but provides less than half the effort. 2-Substantial/Maximal Assistance-helper does MORE THAN HALF the effort. [place] lifts or holds trunk or limbs and provides more than half the effort. 3-Dakaxnhhu-eltphd does ALL the effort. Patient does none of the effort to complete the activity. Or, the assistance of 2 or more helpers is required for the patient to complete the activity. If activity was not attempted, code reason: 7-Patient Refused. 9-Not Applicable-not attempted and the patient did not perform the activity before the current illness, exacerbation or injury. 10-Not Attempted due to Environmental Limitations-(lack of equipment, weather restraints, etc.). 88-Not Attempted due to Medical Conditions or Safety Concerns. Roll Left & Right (QC): 5 (utilized side rails to perform bed mobility activity due to declining OOB activity. Patient became highly agitated with PT requests to participate with therapy) patient requires time to complete all tasks Assessment Patient adamantly declined to continue participating with PT. Patient became highly agitated. Patient remained in bed with all 4 rails up and bed alarm activated. Patient would go to sleep mid sentence. RN aware. PT Fpc Goals Fpc Goals PT Network Control Operator Goals Time Frame: Aug 16, 2020 Roll Left & Right (QC): 6 Sit to Lying (QC): 6 Lying-Sitting on Side/Bed(QC): 6 Sit to Stand (QC): 6 Chair/Zac-ku-Qvzit Xfer(QC): 6 Toilet Transfer (QC): 6 Does the Patient Walk: Yes Walk 10 feet (QC): 6 Walk 50ft with 2 Turns (QC): 6 Walk 150 ft (QC): 6 PT Plan Treatment/Plan Treatment Plan: Continue Plan of Care Treatment Plan: Bed Mobility, Education, Functional Activity Kandis, Functional Strength, Gait, Safety, Therapeutic Exercise, Transfers Treatment Duration: Aug 16, 2020 Frequency: 6 times per week Estimated Hrs Per Day: .25 hour per day Patient and/or Family Agrees t: Yes Time/GCodes Time In: 1100 Time Out: 1112 Total Billed Treatment Time: 12 Total Billed Treatment 1 visit EX 12 min FAWN RUIZ PT Aug 08, 2020 11:31
--- NOTE | 2020-08-08 11:33 | Progress Note - Hospitalist ---
Subjective HPI/CC On Admission Date Seen by Provider: Aug 08, 2020 Time Seen by Provider: 10:45 Dino Moreau is a 50-year-old male with H insulin-dependent diabetes mellitus, methamphetamine abuse, who presented with altered mental status. He had reportedly been out of his insulin according to his parents. He had been too weak to walk and was incontinent of urine.in the emergency room, he was found to be in diabetic ketoacidosis. At the time of my exam, he is lethargic, uncooperative, and unable to provide any history. Subjective/Events-last exam patient required Ativan last night around 2 a.m. for agitation and insomnia. He was up most the night fell asleep some time this morning 7 or 8 and was sleeping upon my arrival. He aroused easily would answer a few simple questions and complained that he wasn't being left alone to sleep. We did discuss that his days and nights were turned around and in addition to the fact that he is sundowning.per physical therapy now he is still fall risk requiring cueing and a walker for ambulation but no focal deficits are noted. He denies cough and nausea chest pain or shortness of breath. Focused Exam Time of Focused Exam: 00:14 Objective Exam Vital Signs Vital Signs Date Time Temp Pulse Resp B/P (MAP) Pulse Ox O2 Delivery O2 Flow Rate FiO2 08/08/20 08:00 Room Air 08/08/20 08:00 36.9 108 20 163/87 (112) 97 08/03/20 18:00 2.00 Capillary Refill : Less Than 3 Seconds General Appearance: No Apparent Distress Respiratory: Chest Non Tender, Lungs Clear, Normal Breath Sounds, No Accessory Muscle Use, No Respiratory Distress Cardiovascular: Regular Rate, Rhythm, No Edema, No Gallop, No JVD, No Murmur, Normal Peripheral Pulses Gastrointestinal: Normal Bowel Sounds, No Organomegaly, No Pulsatile Mass, Non Tender, Soft Extremity: Normal Inspection, Normal Range of Motion, Non Tender, No Calf Tenderness, No Pedal Edema Results/Procedures Lab Laboratory Tests 08/08/20 05:20 Patient resulted labs reviewed. Imaging: Reviewed Imaging Report Assessment/Plan Assessment and Plan Assess & Plan/Chief Complaint A/P 1. Delirium multifactorial secondary to influenza be MRSA sepsis probable pneumonia etiology/secondary bacterial infection post influenza B slowly improving. I discussed with the family that it was common to get days and nights switched around and further still to be a lot of ups and downs in regards to agitation and orientation. Still cannot rule out the possibility of some permanent brain injury considering the degree of his hyperglycemia and sepsis but that he still had a good chance of getting back to baseline or near baseline. Discussed that he would be extremely weak. While the patient tested positive for methamphetamine family found TheraFlu in his room no evidence for alcohol and no reported known history of drug abuse. This raises the possibility of cross reaction with utuu-skn-ykgdpqm cold preparations.we'll continue physical therapy and he'll need continued hospitalization due to ongoing delirium when this improved she should be ready for discharge hopefully over the weekend. 2. Influenza B positive which may also be contributing to delirium. 3. Diabetes mellitus with DKA resolved patient experienced some hypoglycemia blood sugar down to 40 units given some juice and peanut butter and crackers. He did not eat crackers but did eat peanut butter and drank the juice. There are still some occasional coughing with liquids the crackers were given inadvertently will continue clear liquid diet for now until delirium clears. As the patient agitation is improved and he is somnolent this morning we will change respiratory down to every 6 hours when necessary 1 mg. Discussed with family that hypoglycemia was likely a positive sign with decreasing stress levels leading to decreasing insulin requirements will decrease basal insulin from 25 units to 15 units. 4. mild hypokalemia we'll replace. 5. Anemia of chronic disease most likely hemoglobinstable the last several days without blood transfusion 3 days. . Critical Care Critically Ill Patient Clinical Quality Measures DVT/VTE Risk/Contraindication: Risk Factor Score Per Nursin RFS Level Per Nursing on Admit: 4+=Very High KHRIS TINEO MD Aug 08, 2020 11:33
[2020-08-08 12:00] VITALS: BP 166/94
--- NOTE | 2020-08-08 15:12 | NUR ---
Pt was shivering, not covered with clothes or blanket. He thanked this Turf Manager for visiting him and said he needed prayer. Patient not cleared of flu precautions at this time. This Turf Manager pressed the call light to request a blanket, which RANCHO Pacheco provided within a few minutes. Assisted with covering the patient. He said he felt better and was soon after resting with eyes closed.
[2020-08-08 15:23] VITALS: BP 170/100
--- NOTE | 2020-08-08 17:00 | NUR ---
Patient to room 414, report from Marie RN, patient sitting in recliner at this time, patient oriented to room and call light. Will assume care of patient at this time.
--- NOTE | 2020-08-08 17:34 | Diagnostic Imaging Report ---
INDICATION: Pneumonia follow-up. EXAMINATION: PA and lateral chest. FINDINGS: Patchy area of consolidation in the right mid lateral chest is not appreciably changed from 08/01/2020. There is no effusion or pneumothorax. There may be minimal patchy infiltrate at the right lung base. IMPRESSION: No significant interval change compared to 08/01/2020. Dictated by: Dictated on workstation # [id number]
[2020-08-08 19:05] VITALS: BP 140/82
[2020-08-08] MEDS: ACETAMINOPHEN 325 MG TABLET PO PRN (21:55)
[2020-08-08 23:24] VITALS: BP 114/64
[2020-08-09 04:13] VITALS: BP 146/82
[2020-08-09 06:21] LABS: HEMOGLOBIN 8.4 g/dL (13.3-17.7); MEAN PLATELET VOLUME 9.7 fL (9.0-12.2); WHITE BLOOD COUNT 10.6 10^3/uL (4.3-11.0)
[2020-08-09 06:24] LABS: CHLORIDE 101 MMOL/L (98-107); POTASSIUM 3.4 MMOL/L (3.6-5.0); SODIUM 136 MMOL/L (135-145)
[2020-08-09 06:26] LABS: CALCIUM 7.3 MG/DL (8.5-10.1); GLUCOSE 165 MG/DL (70-105)
[2020-08-09 06:27] LABS: CARBON DIOXIDE 23 MMOL/L (21-32)
[2020-08-09] MEDS: inSUlin ASPART (NovoLOG) 1 UNIT/0.01 ML (CHARGE PER UNIT) SC SCH ×4 (06:29→21:43)
[2020-08-09 06:30] LABS: CREATININE SERUM 0.97 MG/DL (0.60-1.30); GFR ESTIMATED > 60
[2020-08-09] MEDS ORDERED: KCL 20 MEQ TAB (K-DUR) PO ONE (06:30)
[2020-08-09] MEDS: KCL 20 MEQ TAB (K-DUR) PO SCH (06:30)
[2020-08-09 06:31] LABS: BUN/CREATININE RATIO 8
[2020-08-09] MEDS: ACETAMINOPHEN 325 MG TABLET PO PRN ×2 (06:43→21:44)
[2020-08-09 07:53] VITALS: BP 132/69
[2020-08-09] MEDS: ASPIRIN 81 MG CHEW (CHILDREN'S ASA) PO SCH (08:00)
[2020-08-09] MEDS: meTOprolol SUCCINATE 100 MG (TOPROL XL) TAB PO SCH (08:00)
[2020-08-09] MEDS: VANCOMYCIN 1500 MG/NS 500 ML IVPB IV SCH ×2 (08:00)
--- NOTE | 2020-08-09 08:34 | Physical Therapy Daily Note ---
PT Daily Note-Current Subjective Agrees to PT. Reports he did not sleep well and that he does not sleep much. Transfers SCALE: Activities may be completed with or without assistive devices. 3-Sxotqmsekz-nfufbrv completes the activity by him/herself with no assistance from a helper. 5-Set-up or Clean-up Assistance-helper sets up or cleans up; patient completes activity. [place] assists only prior to or following the activity. 4-Supervision or Touching Assistance-helper provides verbal cues and/or touching/steadying and/or contact guard assistance as patient completes activity. Assistance may be provided throughout the activity or intermittently. 3-Partial/Moderate Assistance-helper does LESS THAN HALF the effort. [place] lifts, holds or supports trunk or limbs, but provides less than half the effort. 2-Substantial/Maximal Assistance-helper does MORE THAN HALF the effort. [place] lifts or holds trunk or limbs and provides more than half the effort. 4-Mbdoaupia-pzatbc does ALL the effort. Patient does none of the effort to complete the activity. Or, the assistance of 2 or more helpers is required for the patient to complete the activity. If activity was not attempted, code reason: 7-Patient Refused. 9-Not Applicable-not attempted and the patient did not perform the activity before the current illness, exacerbation or injury. 10-Not Attempted due to Environmental Limitations-(lack of equipment, weather restraints, etc.). 88-Not Attempted due to Medical Conditions or Safety Concerns. Lying to Sitting/Side of Bed(Q: 4 (CGA and cues for sequencing; seems uncoordinated in movememt.) Sit to Stand (QC): 3 (min assist with cues for sequencing and safety. Stood EOB and pull his underwear off. min assist for balance. ) Incont of bladder. Changed undergarments and cleaned skin. Applied a depend. Gait Training Pt walked 15 ft with FWW with min assist. Up in chair. Chair alarm activated. Needs met. Treatments Applied clean gown and undergarments. Cleaned megan area. Set up breakfast. In chair with call light and instructions to only get up with assist. Chair alarm activated. Assessment Current Status: Fair Progress Unsteady in standing and difficulty initiating movement initially. Cooperative and pleasant. PT [facility] Goals Graphics Software Engineer Goals PT Graphics Software Engineer Goals Time Frame: Aug 16, 2020 Roll Left & Right (QC): 6 Sit to Lying (QC): 6 Lying-Sitting on Side/Bed(QC): 6 Sit to Stand (QC): 6 Chair/Vpm-hr-Ijbej Xfer(QC): 6 Toilet Transfer (QC): 6 Does the Patient Walk: Yes Walk 10 feet (QC): 6 Walk 50ft with 2 Turns (QC): 6 Walk 150 ft (QC): 6 PT Plan Problem List Problem List: Activity Tolerance, Functional Strength, Safety, Balance, Gait, Transfer, Bed Mobility Treatment/Plan Treatment Plan: Continue Plan of Care Treatment Plan: Bed Mobility, Education, Functional Activity Kandis, Functional Strength, Gait, Safety, Therapeutic Exercise, Transfers Treatment Duration: Aug 16, 2020 Frequency: 6 times per week Estimated Hrs Per Day: .25 hour per day Patient and/or Family Agrees t: Yes Safety Risks/Education Patient Education: Transfer Techniques, Safety Issues Teaching Recipient: Patient Teaching Methods: Demonstration, Discussion Response to Teaching: Reinforcement Needed Discharge Recommendations Therapy Discharge Recommendati: Post Acute PT Time/GCodes Time In: 810 Time Out: 834 Total Billed Treatment Time: 24 Total Billed Treatment visit FA 24 HANS CONLEY PT Aug 09, 2020 08:34
[2020-08-09] MEDS: FLUCONAZOLE 200 MG/100 ML 100 ML IV SCH (09:38)
[2020-08-09] MEDS: PANTOPRAZOLE 40 MG (PROTONIX) VIAL IV SCH ×2 (09:38→21:43)
[2020-08-09 11:17] VITALS: BP 138/80
--- NOTE | 2020-08-09 12:15 | Progress Note - Hospitalist ---
Subjective HPI/CC On Admission Date Seen by Provider: Aug 09, 2020 Time Seen by Provider: 12:12 Dino Moreau is a 50-year-old male with H insulin-dependent diabetes mellitus, methamphetamine abuse, who presented with altered mental status. He had reportedly been out of his insulin according to his parents. He had been too weak to walk and was incontinent of urine.in the emergency room, he was found to be in diabetic ketoacidosis. At the time of my exam, he is lethargic, uncooperative, and unable to provide any history. Subjective/Events-last exam patient sleeping soundly no reports of agitated behavior this morning for last night and appears to be in no acute distress. Focused Exam Time of Focused Exam: 00:14 Objective Exam Vital Signs Vital Signs Date Time Temp Pulse Resp B/P (MAP) Pulse Ox O2 Delivery O2 Flow Rate FiO2 08/09/20 11:17 84 20 138/80 (99) 100 Room Air 08/09/20 07:53 37.6 08/03/20 18:00 2.00 Capillary Refill : Less Than 3 Seconds General Appearance: No Apparent Distress Respiratory: Chest Non Tender, Lungs Clear, Normal Breath Sounds, No Accessory Muscle Use, No Respiratory Distress Cardiovascular: Regular Rate, Rhythm, No Edema, No Gallop, No JVD, No Murmur, Normal Peripheral Pulses Results/Procedures Lab Laboratory Tests 08/09/20 04:42 Patient resulted labs reviewed. Imaging: Reviewed Imaging Report Assessment/Plan Assessment and Plan Assess & Plan/Chief Complaint A/P 1. Delirium multifactorial improving, likelysecondary to influenza B, MRSA sepsis probable pneumonia etiology/secondary bacterial infection post influenza B slowly improving. I discussed with the family that it was common to get days and nights switched around and further still to be a lot of ups and downs in regards to agitation and orientation. Still cannot rule out the possibility of some permanent brain injury considering the degree of his hyperglycemia and sepsis but that he still had a good chance of getting back to baseline or near baseline. Discussed that he would be extremely weak. While the patient tested positive for methamphetamine family found TheraFlu in his room no evidence for a lcohol and no reported known history of drug abuse. This raises the possibility of cross reaction with pxzc-msu-difvvrs cold preparations.we'll continue physical therapy and he'll need continued hospitalization due to ongoing delirium when this improved she should be ready for discharge hopefully over the weekend. 2. Influenza B positive which may also be contributing to delirium. 3. Diabetes mellitus with DKA resolved patient experienced some hypoglycemia blood sugar down to 40 units given some juice and peanut butter and crackers. He did not eat crackers but did eat peanut butter and drank the juice. There are still some occasional coughing with liquids the crackers were given inadver tently will continue clear liquid diet for now until delirium clears. As the patient agitation is improved and he is somnolent this morning we will change respiratory down to every 6 hours when necessary 1 mg. Discussed with family that hypoglycemia was likely a positive sign with decreasing stress levels leading to decreasing insulin requirements will decrease basal insulin from 25 units to 15 units. 4. mild hypokalemia we'll replace. 5. Anemia of chronic disease most likely hemoglobin stable the last several days without blood transfusion 3 days. 6. Significant deconditioning patient still unstable on his feet for this reason we'll hold the day possible discharge to his parents care tomorrow . Critical Care Critically Ill Patient Clinical Quality Measures DVT/VTE Risk/Contraindication: Risk Factor Score Per Nursin RFS Level Per Nursing on Admit: 4+=Very High KHRIS TINEO MD Aug 09, 2020 12:15
--- NOTE | 2020-08-09 12:37 | Progress Note - Cardiology ---
Cardiology SOAP Progress Note Subjective: No cp or palp or syncope or shortness of breath Gen malaise and weakness Objective: I&O/Vital Signs 08/09/20 08/09/20 08/09/20 08/09/20 04:13 07:53 08:00 11:17 Temp 36.3 37.6 Pulse 100 94 84 Resp 21 24 20 B/P (MAP) 146/82 (103) 132/69 (90) 138/80 (99) Pulse Ox 97 100 100 100 O2 Delivery Room Air Room Air Room Air Room Air 08/09/20 00:00 Intake Total 3275.2 ml Balance 3275.2 ml Constitutional: AAO x 3, well-developed, well-nourished Respiratory: chest expansion is symmetric, chest is bilaterally symmetric, o ther (tachypnea) Cardiovascular: No JVD; tachycardia Gastrointestional: soft, round, audible bowel sounds Extremities: no lower extremity edema bilateral Neurologic/Psychiatric: oriented x 3, other (moves all limbs) Skin: No rash on exposed areas, No ulcerations on exposed areas Results/Procedures: Labs Laboratory Tests 08/08/20 14:02: Lab Scanned Report Transfusion Reaction Form 08/08/20 15:27: Glucometer 366H 08/08/20 20:10: Glucometer 223H 08/09/20 04:42: White Blood Count 10.6, Red Blood Count 3.13L, Hemoglobin 8.4L, Hematocrit 27L, Mean Corpuscular Volume 85, Mean Corpuscular Hemoglobin 27, Mean Corpuscular Hemoglobin Concent 32, Red Cell Distribution Width 14.6H, Platelet Count 504H, Mean Platelet Volume 9.7, Sodium Level 136, Potassium Level 3.4L, Chloride Level 101, Carbon Dioxide Level 23, Anion Gap 12, Blood Urea Nitrogen 8, Creatinine 0.97, Estimat Glomerular Filtration Rate > 60, BUN/Creatinine Ratio 8, Glucose Level 165H, Calcium Level 7.3L 08/09/20 05:35: Glucometer 212H 08/09/20 10:42: Glucometer 202H Microbiology 08/05/20 Catheter Tip Culture - Final, Complete No growth 07/29/20 Gram Stain - Final, Complete 07/29/20 CSF Culture - Final, Complete No growth 07/27/20 MRSA Screen - Final, Complete MRSA not isolated 07/26/20 Urine Culture - Final, Complete NO GROWTH Laboratory Tests 08/08/20 05:20 08/09/20 04:42 A/P: Assessment: Sepsis of undetermined etiology, managed by the Hospitalist bimal Hypertension, not well controlled Severe anemia, worsening again after recent transfusion, managed by the Hospitalist / Medical Svpeng MRSA in cultures - source unknown Encephalopathy - improving AMS - improving Echo of 07/28/20: LVEF 70-75%, normal PASP H/O Methamphetamine abuse (drug screen positive during this hospitalization) Sinus tachycardia - improved DM - DKA (resolved) Influenza B WAN-3, improved Plan: He appears oriented today. I discussed his diagnosis of bacteremia with him and the recommendation of REX. We discussed this in quite detail. He seemed a little confused at times, but does seem to understand most of what we talked about. If he is able to understand the issues and able to provide an informed consent, then REX Tuesday or Monitor lab Replace electrolytes as indicated MUNIR CASTANEDA MD FACP FAC CCDS Aug 09, 2020 12:37
[2020-08-09 16:00] VITALS: BP 143/75
[2020-08-09 20:00] VITALS: BP 151/79
[2020-08-10] VITALS: BP 137/65
[2020-08-10 04:35] VITALS: BP 124/67
[2020-08-10] MEDS: inSUlin ASPART (NovoLOG) 1 UNIT/0.01 ML (CHARGE PER UNIT) SC SCH ×2 (05:56→12:21)
[2020-08-10 07:33] VITALS: BP 153/74
[2020-08-10] MEDS: KCL 20 MEQ TAB (K-DUR) PO SCH (07:48)
--- NOTE | 2020-08-10 07:49 | NUR ---
ELECTROLYTE PROTOCOL NOT DONE LABS NOT ORDERED FOR TODAY.
[2020-08-10 09:00] LABS: ALBUMIN 2.3 GM/DL (3.2-4.5)
[2020-08-10 09:01] LABS: CHLORIDE 99 MMOL/L (98-107); POTASSIUM 3.5 MMOL/L (3.6-5.0); SODIUM 135 MMOL/L (135-145)
[2020-08-10 09:02] LABS: CALCIUM 7.7 MG/DL (8.5-10.1)
[2020-08-10 09:03] LABS: GLUCOSE 158 MG/DL (70-105); TOTAL PROTEIN 7.2 GM/DL (6.4-8.2)
[2020-08-10 09:04] LABS: CARBON DIOXIDE 25 MMOL/L (21-32)
[2020-08-10 09:05] LABS: BILIRUBIN,TOTAL 0.4 MG/DL (0.1-1.0)
[2020-08-10 09:06] LABS: ALKALINE PHOSPHATASE 86 U/L (40-136)
[2020-08-10 09:07] LABS: CREATININE SERUM 1.07 MG/DL (0.60-1.30); GFR ESTIMATED > 60
[2020-08-10 09:08] LABS: BUN/CREATININE RATIO 8
[2020-08-10 09:10] LABS: ALANINE AMINOTRANSFERASE 25 U/L (0-55)
[2020-08-10] MEDS: VANCOMYCIN 1500 MG/NS 500 ML IVPB IV SCH ×2 (09:15)
[2020-08-10] MEDS: PANTOPRAZOLE 40 MG (PROTONIX) VIAL IV SCH (09:15)
[2020-08-10] MEDS: FLUCONAZOLE 200 MG/100 ML 100 ML IV SCH (09:15)
[2020-08-10] MEDS: meTOprolol SUCCINATE 100 MG (TOPROL XL) TAB PO SCH (09:18)
[2020-08-10] MEDS: ASPIRIN 81 MG CHEW (CHILDREN'S ASA) PO SCH (09:18)
[2020-08-10 11:18] VITALS: BP 124/58
--- NOTE | 2020-08-10 13:03 | Discharge Summary ---
Diagnosis/Chief Complaint Date of Admission Jul 27, 2020 at 00:10 Date of Discharge Discharge Date: Aug 10, 2020 Admission Diagnosis Diabetic ketoacidosis and septic shock due to gram positive cocci bacteremia Primary Care No,Local Physician Discharge Diagnosis (1) Encephalopathy (2) Elevated procalcitonin Status: Acute (3) Gram-positive cocci bacteremia Status: Acute (4) High anion gap metabolic acidosis Status: Acute (5) Acute kidney injury Status: Acute (6) Metabolic encephalopathy Status: Acute (7) Influenza B Status: Acute (8) Hyponatremia Status: Acute (9) Lactic acidosis Status: Acute (10) Hyperkalemia Status: Acute (11) Septic shock Status: Acute Discharge Summary Discharge Physical Exam Allergies: Coded Allergies: No Known Drug Allergies (Unverified , 07/26/20) Vitals & I&Os Vital Signs Date Time Temp Pulse Resp B/P (MAP) Pulse Ox O2 Delivery O2 Flow Rate FiO2 08/10/20 11:18 37.0 106 20 124/58 (80) 96 Room Air General Appearance: No Apparent Distress Respiratory: Chest Non Tender, Lungs Clear, Normal Breath Sounds, No Accessory Muscle Use, No Respiratory Distress Cardiovascular: Regular Rate, Rhythm, No Edema, No Gallop, No JVD, No Murmur, N ormal Peripheral Pulses Gastrointestinal: Normal Bowel Sounds, No Organomegaly, No Pulsatile Mass, Non Tender, Soft Hospital Course Was the Problem List Reviewed?: Yes The patient presents to ER by private conveyance with his parents and chief complaint he is having altered mental status inability to walk and incontinence of urine. They said a couple days ago he called when he was out on business in [place] claiming he felt 6 of encourage him to go the ER. He also said he was out of his insulin. They are not sure what he found out when he went to the hospital but they did not apparently admit him. He called again today saying that he did not feel well and was very confused so they went out got him brought him home and gave him his metformin and omeprazole. Were not able to check his blood sugar because he did not have a glucometer. They brought him to the ER where the patient is altered, confused and talking about people being on him for fun and that he lost his insulin because it was either lost, misplaced or stolen. He says he is trying to get to his doctor, Dr. Mila Singer. Patient lives in [place]. his blood sugar was noted to be over 1200 acid.A compatible with DKA. He was influenza B+ and COVID negative. Blood cultures were positive for methicillin- resistant Staphylococcus aureus and ultimately chest x-ray revealed right upper lobe infiltrate the likely source of his sepsis. While the patient has likely type II diabetes of the overwhelming stress of infection did lead to DKA. He did rapidly improved from this standpoint but remained delirious and quite weak. This slowly responded as well and transthoracic echo revealed no evidence for endocarditis. By the time of this discharge his chest was clear with stable anemia of chronic disease and hemoglobin of 8.7 with normalization of his white count. He was still weak but able to independently get out of a chair use a walker and ambulate to the hallway and back with return of baseline mental function which was corroborated by his parents who talk with him frequently after his delirium cleared. Discussed with the patient as well as family need to follow lower glycemic diet and follow-up with his regular physician as additional medication may be required considering that his A1c level was in the mid 11 range on admission. His father is a diabetic with good understanding of diabetic diet and he will be discharged to his parents care for the next several days well he hopefully continues to regain strength. He did finish a 10 day course of IV antibiotics with a normal exam so was not discharged on antibiotics. No medication changes from baseline medications were recommended on discharge. While he did test positive for methamphetamine the remainder of h is urine drug screen was negative on admission. There were several cold remedies noted including TheraFlu with denial by the patient his friends or family of noting any history of methamphetamine or current methamphetamine usage. This does raise the possibility of false positive methamphetamine test. Labs (last 24 hrs) Laboratory Tests 08/09/20 16:22: Glucometer 230H 08/09/20 20:20: Glucometer 330H 08/10/20 05:26: Glucometer 105 08/10/20 08:48: Sodium Level 135, Potassium Level 3.5L, Chloride Level 99, Carbon Dioxide Level 25, Anion Gap 11, Blood Urea Nitrogen 9, Creatinine 1.07, Estimat Glomerular Filtration Rate > 60, BUN/Creatinine Ratio 8, Glucose Level 158H, Calcium Level 7.7L, Corrected Calcium 9.1, Total Bilirubin 0.4, Aspartate Amino Transf (AST/SGOT) 30, Alanine Aminotransferase (ALT/SGPT) 25, Alkaline Phosphatase 86, Total Protein 7.2, Albumin 2.3L 08/10/20 09:01: Coronavirus 2019 ([facility]) Negative 08/10/20 11:17: Glucometer 290H Microbiology 08/05/20 Catheter Tip Culture - Final, Complete No growth 07/29/20 Gram Stain - Final, Complete 07/29/20 CSF Culture - Final, Complete No growth 07/27/20 MRSA Screen - Final, Complete MRSA not isolated 07/26/20 Urine Culture - Final, Complete NO GROWTH Patient resulted labs reviewed. Pending Labs Laboratory Tests 08/10/20 05:26: Glucometer 105 08/10/20 08:48: Sodium Level 135, Potassium Level 3.5, Chloride Level 99, Carbon Dioxide Level 25, Anion Gap 11, Blood Urea Nitrogen 9, Creatinine 1.07, Estimat Glomerular Filtration Rate > 60, BUN/Creatinine Ratio 8, Glucose Level 158, Calcium Level 7.7, Corrected Calcium 9.1, Total Bilirubin 0.4, Aspartate Amino Transf (AST/SGOT) 30, Alanine Aminotransferase (ALT/SGPT) 25, Alkaline Phosphatase 86, Total Protein 7.2, Albumin 2.3 08/10/20 09:01: Coronavirus 2019 ([facility]) Negative 08/10/20 11:17: Glucometer 290 Imaging: Reviewed Imaging Report Discussion & Recommendations Discharge Planning: >30 minutes discharge planning Discharge Home Medications: Active Scripts Active Reported Sildenafil (Sildenafil Citrate) 20 Mg Tablet 40-60 Mg PO UD PRN Lisinopril 10 Mg Tablet 10 Mg PO DAILY Tresiba Flextouch U-100 (Insulin Degludec) 100 Unit/1 Ml Insuln.pen 10 Units SC DAILY Sertraline HCl 100 Mg Tablet 100 Mg PO DAILY Omeprazole 20 Mg Capsule.dr 20 Mg PO DAILY Metformin HCl 1,000 Mg Tablet 1,000 Mg PO BID Glimepiride 4 Mg Tablet 4 Mg PO DAILY Instructions to patient/family Please see electronic discharge instructions given to patient. Clinical Quality Measures DVT/VTE Risk/Contraindication: Risk Factor Score Per Nursin RFS Level Per Nursing on Admit: 4+=Very High KHRIS TINEO MD Aug 10, 2020 13:03
--- NOTE | 2020-08-10 13:40 | NUR ---
DC'D PER WC TO ER EXIT. FATHER WAITING AT DOOR. PT STARTING TO GET ANXIOUS ABOUT DC. REFUSED SHOES/SOCKS. REPORT TO FATHER ALONG WITH DC PACKET.
== END 2020-08-10 13:40 | disposition home or self-care (01) | DRG 871 ==
LOC: EDUNIT# 21:21 → ER 21:23 → ICU 07-27 00:10 → 4TH 08-04 10:06
PROVIDERS: ADMIT Internal Medicine; ATTEND Internal Medicine
DX: A41.01 Sepsis due to Methicillin susceptible Staphylococcus aureus (principal); E11.10 Type 2 diabetes mellitus with ketoacidosis without coma; R65.21 Severe sepsis with septic shock; G93.41 Metabolic encephalopathy; N17.9 Acute kidney failure, unspecified; E87.2 Acidosis; E87.1 Hypo-osmolality and hyponatremia; J10.89 Influenza due to other identified influenza virus with other manifestations; R26.2 Difficulty in walking, not elsewhere classified; R32 Unspecified urinary incontinence; E87.5 Hyperkalemia; Z20.828 Contact with and (suspected) exposure to other viral communicable diseases; D63.8 Anemia in other chronic diseases classified elsewhere; Z79.4 Long term (current) use of insulin; F15.10 Other stimulant abuse, uncomplicated
CPT/HCPCS: 36415; 36569; 51702; 70450; 71045; 71046; 71250; 74019; 74176; 76700; 76937; 78226; 80048; 80053; 80202; 80306; 80320; 81000; 82010; 82140; 82150; 82274; 82550; 82805; 82945; 82947; 82962; 83036; 83605; 83690; 83735; 84100; 84145; 84439; 84443; 84481; 85007; 85014; 85018; 85025; 85027; 85379; 85610; 85730; 86141; 86850; 86900; 86901; 86920; 87040; 87070; 87077; 87081; 87088; 87186; 87205; 87635; 87804; 89051; 93005; 93306; 96361; 96365; 96366; 96372; 96375; 99291

== ENCOUNTER 2020-11-10 11:15 | Outpatient (RCR) | payer BC ==
[~2020-11-10 11:15] MED LIST: GLIM4TAB5 PO; INSU100I32 SC; LISI10TA25 PO; METF-399 PO; OMEP20CA18 PO; SERT-414 PO; SILD20TA14 PO
== END 2021-01-07 | disposition home or self-care (01) ==
PROVIDERS: ATTEND Nurse Practitioner Family
DX: M46.06 Spinal enthesopathy, lumbar region (principal)